=== PATIENT | male | born 1945 | race Caucasian/White ===

== ENCOUNTER 2022-10-31 19:52 | Emergency (ER) | payer MEDICARE, OTHER, SELFPAY ==
[2022-10-31] VITALS (13 sets, daily range): BP systolic 124–147; BP diastolic 62–94; PULSE 72–85; RESP 16; TEMP 36.6; O2SAT 91–96; BMI 35.4
--- NOTE | 2022-10-31 20:03 | CRLHL7_ITS ---
For Patients: As a result of the Century Cures Act, medical imaging exams and procedure reports are released immediately into your electronic medical record. You may view this report before your referring provider. If you have questions, please contact your health care provider. Indication: Fall with right ankle pain. Technique: Right ankle 2 views. Comparison: None. Findings/Impression: Bones: Partial subluxation of the ankle joint consistent with ligamentous injury. Minimally displaced oblique fracture in the distal right fibula. Joint spaces: No degenerative changes. Soft tissues: Unremarkable. Dictated by Manjit Gerber MD @ 10/31/2022 8:52:01 PM (Electronically Signed)
--- NOTE | 2022-10-31 20:40 | ED.GENADULT ---
HPI - General Adult General Chief complaint: Extremity Pain/Injury, Lower Stated complaint: Foot injury, fall Time Seen by Provider: 10/31/22 20:32 History of Present Illness HPI narrative: 850ish - walking for mail, fell, passerby helped him get up and he rolled his R ankle, ems gave 50 fent IV. semi splinted ankle. no previous hx of R ankle injury. pt has abrasions to knees bilat, denies any complaints of pain in knees or hips. post fent pt got 2L NC per ems. 77-year-old man went out to get the mail. I believe he told me stepped on a tire and rolled his ankle. Spouse says there are no tires out there. Abrasions to both knees. Knees are sore but is able to bend them. Did not hit his head. No neck or back or shoulder or abdominal pain. No shortness of breath. No loss of consciousness. Pain in the right ankle. Did receive fentanyl via EMS. No shortness of breath. Related Data Home Medications Medication Instructions Recorded Confirmed amlodipine 10 mg tablet 10 mg PO DAILY 10/31/22 11/05/22 atorvastatin 40 mg tablet 40 mg PO DAILY 10/31/22 11/05/22 lisinopril 20 1 tab PO DAILY 10/31/22 11/05/22 mg-hydrochlorothiazide 25 mg tablet blood sugar diagnostic (Accu-Chek #10 ea 11/03/22 11/03/22 SmartView Test Strips) glipizide 10 mg tablet, extended 10 mg PO BID 11/03/22 11/05/22 release 24 hr insulin glargine 100 unit/mL (3 70 unit subcut QPM 11/03/22 11/05/22 mL) subcutaneous pen (Lantus Solostar U-100 Insulin) metformin 500 mg tablet,extended 1,000 mg PO QDAY 11/03/22 11/05/22 release 24 hr pen needle, diabetic 32 gauge x #1,200 ea 11/03/22 11/03/22 (BD Ida 2nd Gen Pen Needle) pioglitazone 30 mg tablet 30 mg PO DAILY 11/03/22 11/05/22 Previous Rx's Medication Instructions Recorded Adult Wheelchair #1 ea 11/03/22 acetaminophen 500 mg capsule 1,000 mg (2 x 500 mg) PO Q6H PRN 11/05/22 pain #60 caps aspirin 81 mg capsule 81 mg PO BID DVT prophylaxis #70 11/05/22 caps oxycodone 5 mg tablet 5 mg PO Q4H PRN pain #20 tabs 11/05/22 Allergies Allergy/AdvReac Type Severity Reaction Status Date / Time No Known Drug Allergies Allergy Verified 11/05/22 06:28 Review of Systems Status of ROS: Reports: 6 or more systems reviewed and unremarkable except as noted in History and below [facility] Medical History 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 Little sleepy presumably from fentanyl. Cranial nerves 2-12 are intact. GCS of 15. Breathing easily. Lungs appear to be clear. Heart in regular rate and rhythm abdomen is overweight soft nontender. General swelling and purpling of the right ankle. Inch diameter as if residual blister abrasion at the medial malleolus. Skin is tense. Sensation intact distally. Large abrasions on both knees with a little bit of grit in them but he is able to flex and extend the knees without significant pain. Small abrasion at the right dorsal wrist. With small amount of swelling. Has no pain to movement/manipulation of the wrist here. Head is atraumatic. Neck is supple. Back nontender. Const: Vital Signs, click to edit/add: Vital Signs - 24 hr 10/31/22 19:58 10/31/22 20:02 10/31/22 20:17 Temperature 97.9 F Pulse Rate 82 82 Pulse Rate [Left P ulse Oximeter] 85 Respiratory Rate 16 Blood Pressure 138/72 145/84 H Blood Pressure [Ri ght Upper Arm] 138/69 Pulse Oximetry 93 91 94 Oxygen Delivery Me thod Nasal Cannula Oxygen Flow Rate 2 10/31/22 20:32 10/31/22 20:48 10/31/22 21:02 Temperature Pulse Rate 80 82 79 Pulse Rate [Left P ulse Oximeter] Respiratory Rate Blood Pressure 147/82 H 126/94 H 146/63 H Blood Pressure [Ri ght Upper Arm] Pulse Oximetry 93 96 95 Oxygen Delivery Me thod Oxygen Flow Rate Documenting provider has reviewed patient's vital signs: yes Course Vital Signs Vital signs: Initial Vital Signs Temperature 97.9 F 10/31/22 19:58 Temperature Source Temporal Artery Scan 10/31/22 19:58 Pulse Rate 85 10/31/22 19:58 Respiratory Rate 16 10/31/22 19:58 Blood Pressure 138/69 10/31/22 19:58 Blood Pressure Mean 92 10/31/22 19:58 Blood Pressure Position Supine 10/31/22 19:58 Pulse Oximetry 93 10/31/22 19:58 Oxygen Delivery Method Nasal Cannula 10/31/22 19:58 Oxygen Flow Rate 2 10/31/22 19:58 Vital Signs Temperature 97.9 F 10/31/22 19:58 Pulse Rate 85 10/31/22 19:58 Respiratory Rate 16 10/31/22 19:58 Blood Pressure 138/69 10/31/22 19:58 Pulse Oximetry 93 10/31/22 19:58 Oxygen Delivery Method Nasal Cannula 10/31/22 19:58 Oxygen Flow Rate 2 10/31/22 19:58 Temperature 97.9 F 10/31/22 19:58 Pulse Rate 72 10/31/22 21:47 Respiratory Rate 16 10/31/22 21:47 Blood Pressure 124/71 10/31/22 21:47 Pulse Oximetry 94 10/31/22 21:47 Oxygen Delivery Method Room Air 10/31/22 21:47 Oxygen Flow Rate 1 10/31/22 21:33 Medical Decision Making MDM Narrative Medical decision making narrative: X-ray of reviewed by me before I enter the room. Looks like oblique fibular fracture with mortise widening to 1/2 inch. Joint subluxation. I do not see a fracture at the medial malleolus at this time. Probably will need reduction to help with his discomfort. Did discuss with Orthopedics in agreement. Attempt opiate pain medication 1st but will likely need deeper procedural sedation. Given Dilaudid. He did fall asleep with this periodically. Right ankle 2 views. Comparison: None. Findings/Impression: Bones: Partial subluxation of the ankle joint consistent with ligamentous injury. Minimally displaced oblique fracture in the distal right fibula. Joint spaces: No degenerative changes. Soft tissues: Unremarkable. See procedural notes Post reduction images two view ankle by my read look to show a fracture fragment in the medial joint space. Improved location of joint Discharge Plan Discharge Clinical Impression: Fracture subluxation of right ankle joint, Abrasion, Closed fibular fracture, Fall Patient Disposition: Home w/ Parent or Adult Condition: Improved Additional Instructions: Anticipate a call on Thursday from Orthopedics phone #[phone] to schedule follow-up with you. They will likely be recommending surgery. Elevate for comfort. Do not walk on it; use your crutches. Return/be re-evaluated for uncontrolled pain, new loss of sensation. [place] from [facility]. This can be combined with ibuprofen Prescriptions: No Action (DME) pen needle, diabetic [BD Ida 2nd Gen Pen Needle] 32 gauge x 5/32 needle See Rx Instructions .ROUTE .MEDSUPPLY Qty: 1200 Patient Comments: [NO ORIGINAL SIG] Rx Instructions: As directed insulin glargine [Lantus Solostar U-100 Insulin] 100 unit/mL (3 mL) insulin pen 70 unit subcut QPM pioglitazone 30 mg tablet 30 mg PO DAILY glipizide 10 mg tablet extended release 24hr 10 mg PO BID (DME) Accu-Chek SmartView Test Strip Strip See Rx Instructions .ROUTE BID Qty: 10 Rx Instructions: As directed (DME) Adult Wheelchair Misc See Rx Instructions .Route Qty: 1 0RF Rx Instructions: As directed atorvastatin 40 mg tablet 40 mg PO DAILY amlodipine 10 mg tablet 10 mg PO DAILY lisinopril-hydrochlorothiazide 20-25 mg tablet 1 tab PO DAILY metformin 500 mg tablet extended release 24 hr 1,000 mg PO QDAY oxycodone 5 mg tablet 5 mg PO Q4H PRN (Reason: pain) Qty: 20 0RF acetaminophen 500 mg capsule 1,000 mg PO Q6H PRN (Reason: pain) Qty: 60 0RF aspirin 81 mg capsule 81 mg PO BID Qty: 70 0RF Follow Up/Referrals: Tavo Nix MD [Primary Care Provider] - Stand Alone Forms: [facility] Info Instructions Procedures Orthopedic Fracture Reduction Fracture #1: Written consent by: patient (Verbal consent) Time Out Performed: No Side: right Fracture location: ankle (Fibular fracture with subluxation of the ankle) Analgesia: other (EMS fentanyl in addition to 1 mg of Dilaudid) Technique: traction/counter-traction Post Reduction X-rays Demonstrate: acceptable reduction Post-reduction neuro exam: intact and no change Post-reduction vascular exam: intact Splint Applied: Yes Patient Tolerated Procedure: well Orthopedic Splinting/Casting Injury #1: Side: right Lower Extremity Injury Location: ankle Lower extremity immobilizer: stirrup splint Applied by clinician: / Other Orthopedic Equipment: crutches Conclusion: patient tolerated procedure
[2022-10-31] MEDS: HYDROmorphone 0.5 mg/0.5 ml inj 1 MG IVP (20:58)
--- NOTE | 2022-10-31 21:41 | CRLHL7_ITS ---
For Patients: As a result of the Century Cures Act, medical imaging exams and procedure reports are released immediately into your electronic medical record. You may view this report before your referring provider. If you have questions, please contact your health care provider. Indication: Right ankle post reduction Technique: Two views of the right ankle, nonweightbearing Comparison: Same day ankle radiograph Findings: Lateral subluxation of the talus with respect to the tibia has mildly decreased. Medial clear space remains widened.Ossific avulsion fragment in the medial clear space of unknown parent site. Oblique fracture of the distal fibular diaphysis appears half shaft width posterior displacement of the distal fracture fragment with slight apex anterior angulation, mildly increased compared to prior. Similar appearance of mildly displaced vertically oriented fracture of the posterior malleolus. Overlying splint. Small Achilles calcaneal enthesophyte. Moderate soft tissue swelling about the ankle. Impression: 1. Lateral subluxation of the talus with respect to the tibia has mildly decreased. Medial clear space remains widened.Ossific avulsion fragment in the medial clear space of unknown parent site. 2. Oblique fracture of the distal fibular demonstrates slightly increased diastasis compared to prior. This may be partly due to differences in obliquity. 3. Similar appearance of posterior malleolus fracture. Dictated by Marsha Kraft MD @ 10/31/2022 10:10:38 PM (Electronically Signed)
--- NOTE | 2022-10-31 21:49 | ED.NURSE ---
wound care to knee abrasions, bacitracin applied
--- NOTE | 2022-10-31 22:42 | ED.NURSE ---
education on crutches, pt states he doesnt feel safe with them, walker education, pt unable to use effectively. pt SO and family asked about admittance, Rashida in to talk with pt. in room to talk about options with family. RX written for knee scooter. Son at bedside, pt pivot to wheel chair well, pivot wheelchair to car well. wheelchair sent home with pt to use to get inside tonight, verbal understanding from all family and pt that they will return wheel chair tomorrow.
--- NOTE | 2022-11-01 01:11 | ED.NURSE ---
prior to dc. pt able to maintain room air 93%, alert and oriented.
== END 2022-10-31 22:47 | disposition home or self-care (01) ==
PROVIDERS: Emergency Provider Family Medicine; PCP Family Medicine
DX: S82.431A Displaced oblique fracture of shaft of right fibula, initial encounter for closed fracture (principal); S93.01XA Subluxation of right ankle joint, initial encounter; W18.30XA Fall on same level, unspecified, initial encounter; Y93.01 Activity, walking, marching and hiking
CPT/HCPCS: 27788; 73600; 96374; 99284; J1170

== ENCOUNTER 2022-11-03 16:15 | Outpatient (CLI) | payer MEDICARE, OTHER, SELFPAY | END 2022-11-03 16:16 | disposition home or self-care (01) | LOC: NFLDREF 11-05 15:51 | PROVIDERS: PCP Family Medicine; Referring Provider Family Medicine; Visit Provider Family Medicine | DX: Z01.810 Encounter for preprocedural cardiovascular examination (principal); Z01.818 Encounter for other preprocedural examination; E11.9 Type 2 diabetes mellitus without complications; E11.59 Type 2 diabetes mellitus with other circulatory complications; I15.2 Hypertension secondary to endocrine disorders | CPT/HCPCS: 80053 ==

== ENCOUNTER 2022-11-05 06:09 | Day surgery (SDC) | payer MEDICARE, OTHER, SELFPAY ==
[2022-11-05] VITALS (15 sets, daily range): BP systolic 107–156; BP diastolic 64–113; PULSE 66–77; RESP 16; TEMP 36.2–36.7; O2SAT 93–97; BMI 36.3
[2022-11-05] MEDS: LACTATED RINGERS 1000 ML 1,000 ML 100 ML IV (06:20)
[2022-11-05] MEDS: SODIUM CHLORIDE 0.9 % (FLUSH) 10 ML SYRINGE IVF (07:00)
--- NOTE | 2022-11-05 07:12 | SUR.PREOP ---
TIME?OUT:?0723 PT/RN/MDA?VERIFICATION?OF?SURGICAL?SITE Right Ankle,?PROCEDURE Pop Block,?AND?CONSENT OBTAINED?PRIOR?TO?INVASIVE?PROCEDURE.
[2022-11-05] MEDS: fentaNYL 100 MCG/2 ML inj IVP (07:30)
[2022-11-05] MEDS: MIDAZOLAM HCL 1 MG/ML inj IVP (07:30)
--- NOTE | 2022-11-05 07:30 | CRLHL7_ITS ---
For Patients: As a result of the Century Cures Act, medical imaging exams and procedure reports are released immediately into your electronic medical record. You may view this report before your referring provider. If you have questions, please contact your health care provider. INDICATION: Open reduction and internal fixation of the right ankle. TECHNIQUE: Fluoroscopically guided open reduction internal fixation of the right ankle. Six spot images were obtained of the right ankle intraoperatively. FINDINGS: 29.3 seconds fluoroscopy time utilized. Postsurgical change of the distal fibula with a plate and screw fixation device. Postsurgical change along the medial malleolus. Posterior malleolar fracture. IMPRESSION: Postsurgical change from open reduction internal fixation of the right ankle. 29.3 seconds fluoroscopy time utilized. Dictated by Mesfin Shen MD @ 11/05/2022 11:08:48 AM (Electronically Signed)
--- NOTE | 2022-11-05 07:41 | W.PM.H&PU ---
History & Physical Update History & Physical Update H&P Reviewed and patient assessed: No changes noted
--- NOTE | 2022-11-05 07:54 | W.PM.NB ---
Nerve Block Nerve Block Time Seen by Provider: 07:30 Date Seen: 11/05/22 Type of block requested by surgeon for post-operative analgesia: popliteal Side: right Time out performed: Yes Verification of patient name: Yes Verification of date of : Yes Site marking: site marked Name of person performing procedure: Sujit Continuous monitoring Was continuous monitoring of O2 sat, B/P, wood planer, recorded every 15 minutes?: Yes Procedure Checklist: sterile prep, needles and gloves Ultrasound guided. Images saved: Yes Medications given in 5ml increments after negative aspiration: Ropivicaine %: 0.5 mL: 20 Needle gauge: 22 Patient tolerated procedure well: Yes Additional comments: Needle noted adjacent to nerve Block Charges Block Charge (with Pro Fee): Sciatic Nerve Use of Ultrasound Machine for Block: Yes- US Guidance/pain block
--- NOTE | 2022-11-05 07:54 | W.PM.NB ---
Nerve Block Nerve Block Time Seen by Provider: 07:30 Date Seen: 11/05/22 Type of block requested by surgeon for post-operative analgesia: adductor canal Side: right Time out performed: Yes Verification of patient name: Yes Verification of date of : Yes Site marking: site marked Name of person performing procedure: Sujit Continuous monitoring Was continuous monitoring of O2 sat, B/P, cardiac monitor technician, recorded every 15 minutes?: Yes Procedure Checklist: sterile prep, needles and gloves Ultrasound guided. Images saved: Yes Medications given in 5ml increments after negative aspiration: Ropivicaine %: 0.5 mL: 20 Needle gauge: 20 Patient tolerated procedure well: Yes Additional comments: Needle noted adjacent to nerve Block Charges Block Charge (with Pro Fee): Femoral Nerve Use of Ultrasound Machine for Block: Yes- US Guidance/pain block
--- NOTE | 2022-11-05 07:54 | W.ANESCHARGE ---
Anesthesia Charges Start Date/Time Anesthesia Start Date: 11/05/22 Anesthesia Start Time: 09:02 Stop Date/Time Anesthesia Stop Date: 11/05/22 Anesthesia Stop Time: 11:45 Summary Extremes of Age - Over 70 or under 1: MDA
--- NOTE | 2022-11-05 08:11 | PM.ORPRC ---
Procedure Note Date of procedure: 11/05/22 Procedure: PREOPERATIVE DIAGNOSIS: 1. Right ankle fracture 2. Right ankle syndesmosis disruption POSTOPERATIVE DIAGNOSIS: 1. Right ankle fracture 2. Right ankle syndesmosis disruption PROCEDURE: 1. Right ankle open reduction internal fixation 2. Right ankle syndesmosis fixation SURGEON: Brooks Peoples MD. TANNER [employer] DRUM CONTINUOUS PROCESS: Brianda Peoples P.A.-C. An multimedia production assistant was critical for this case to aid in patient positioning, tissue retraction, limb manipulation/positioning, and closure. ANESTHESIA: Spinal anesthetic with popliteal and adductor canal blocks IMPLANTS: Arthrex 10 hole distal fibular locking plate and syndesmosis tightrope TOURNIQUET: 72 minutes at 250 mmHg ESTIMATED BLOOD LOSS: 10 mL COMPLICATIONS: none evident INDICATIONS: The patient is a pleasant 77-year-old male who Sustained a Fish C distal fibula fracture, small posterior malleolus fracture, and syndesmosis disruption following a ground level fall 5 days prior to surgery. Recommendation was subsequent made for surgical intervention consisting of right ankle open reduction internal fixation and syndesmosis repair. Prior to surgery risks and benefits were discussed with patient all questions were answered and informed consent was obtained. FINDINGS: Displaced, comminuted, Fish C distal fibula fracture; small, displaced posterior malleolus fracture; syndesmosis disruption. DESCRIPTION OF PROCEDURE: Following a thorough discussion of risks, benefits, and alternatives consent was obtained and the operative site was marked. The patient was brought to the operating room and placed supine on the operating table. Induction of anesthesia was undertaken. 2 g IV Ancef was administered within 1 hr of incision preoperatively. A tourniquet was placed on the patient's right thigh and patient was positioned in the supine position on the OR table. All bony prominences were well padded.The operative extremity was prepped and draped in the appropriate sterile fashion. A surgical time-out was performed confirming patient identity surgical site, surgical procedure. The right lower extremity was elevated and exsanguinated with Esmarch, and tourniquet was inflated to 250 mmHg. A longitudinal incision was made along the posterior border of the fibula centered over the fracture site. Incision was carried through subcutaneous tissues. Blunt dissection was used to dissect through deep subcutaneous tissues. Electrocautery was used to cauterize some small traversing vessels. Deep fascia was split in line with the incision with care taken to avoid the superficial peroneal nerve. Fracture site was identified, cleared of fracture hematoma and interposed soft tissue, and irrigated with normal saline. There was noted be a large butterfly fragment posteriorly this fragment was reduced to the proximal fragment and held in place with a pointed reduction clamp. Proximal and distal fragments were then reduced and held in place with another pointed reduction clamp. Fluoroscopic images were obtained which confirmed anatomic reduction. The butterfly fragment was then fixed to the proximal fragment with two 2.7 mm lag screws , which were placed anterior to posterior direction perpendicular to the fracture site. A 10 hole distal fibula locking plate was selected and contoured to fit on the lateral aspect of the distal fibula. It was held provisionally with 2 bb tacks. It was then fixed proximally with 3.5 mm cortical nonlocking screws and distally with locking screws. Fluoroscopic imaging was used to confirm that distal screws were not placed into the joint. After plate was secured to the fibula reduction clamps removed. An external rotation stress test was then performed, which confirmed persistent disruption of the syndesmosis with widening of the medial clear space. The syndesmosis was then reduced, and the ankle was held in neutral alignment. The guidewire for the syndesmosis tight rope was then drilled through one of the unused holes in the plate in a posterior lateral to anterior medial direction across the fibula and tibia approximately 1-2 cm above the tibial plafond. This was then overdrilled with the drill for the syndesmosis tight rope. Syndesmosis tight rope was then placed through the fibula in button was flipped on the medial cortex of the distal tibia. tight rope was then tensioned. An external rotation stress was again applied which confirmed reduction of the syndesmosis and no widening of the medial clear space. Final fluoroscopic images revealed anatomic alignment of the fibula fracture with minimal displacement of the small posterior malleolus fracture. Hardware is in Goodposition with no evidence of any complications. Tourniquet was released. Total tourniquet time was 72 minutes. Surgical incision was irrigated with normal saline. Deep fascia was closed over the plate using combination of [id number] interrupted and running 2-0 Vicryl sutures. Skin was closed with 3-0 Vicryl root interrupted subcutaneous stitches followed by running 3-0 nylon stitch. Sterile dressings were applied followed by a bulky [place] short leg posterior splint. The patient was awoken from anesthesia and transferred the PACU in stable condition. PLAN: 1. Nonweightbearing right lower extremity. May weightbear as tolerated to the knee. 2. Tylenol and oxycodone as needed for pain control. 3. Aspirin 81 mg b.i.d. for 35 days for DVT prophylaxis. 4. Ice and elevation to control pain and swelling. 5. Discharge to home on day of surgery. 6. Follow-up in 10-14 days for wound check and suture removal.
[2022-11-05] MEDS: CEFAZOLIN 1 GM inj IVP (09:18)
--- NOTE | 2022-11-05 11:49 | P.ANES_ITS ---
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
--- NOTE | 2022-11-05 13:23 | SUR.PHASEII ---
pt voided by bedside before discharge.
--- NOTE | 2022-11-05 13:24 | SUR.PHASEII ---
Pt's daughter noted he had a scabbed wound on left knee from his fall. Minimal pink color around area. Daughter was concerned about the look of it. Market Research Lead circled around the pink color. . Piter GUILLERMO looked at it. Instructed them to keep an eye on it and call if it gets worse.
== END 2022-11-05 13:23 | disposition home or self-care (01) ==
PROVIDERS: PCP Family Medicine; Visit Provider Orthopaedic Surgery
PROC: (CPT 27814; principal; 2022-11-05 07:30)
DX: S82.841A Displaced bimalleolar fracture of right lower leg, initial encounter for closed fracture (principal); S93.431A Sprain of tibiofibular ligament of right ankle, initial encounter; G89.18 Other acute postprocedural pain
CPT/HCPCS: 27814; 27829; 1480; 64445; 64447; 73610; 76000; 76942; 82962; 99100; A4580; C1713; J0690; J2250; J2371; J2704; J2795; J3010; J7120

== ENCOUNTER 2022-12-26 14:13 | Inpatient (IN) | payer MEDICARE, OTHER, SELFPAY ==
[2022-12-26] VITALS (16 sets, daily range): BP systolic 123–149; BP diastolic 61–85; PULSE 69–90; RESP 16–24; TEMP 35.9–36.9; O2SAT 92–96; BMI 35.4
[2022-12-26] MEDS: LACTATED RINGERS 1000 ML 1,000 ML 100 ML IV (10:05)
[2022-12-26] MEDS: SODIUM CHLORIDE 0.9 % (FLUSH) 10 ML SYRINGE IVF (10:26)
--- NOTE | 2022-12-26 11:50 | W.ANESCHARGE ---
Anesthesia Charges Start Date/Time Anesthesia Start Date: 12/26/22 Anesthesia Start Time: 11:55 Stop Date/Time Anesthesia Stop Date: 12/26/22 Anesthesia Stop Time: 12:56 Summary Extremes of Age - Over 70 or under 1: MDA
--- NOTE | 2022-12-26 11:54 | W.PM.H&PU ---
History & Physical Update History & Physical Update H&P Reviewed and patient assessed: No changes noted
--- NOTE | 2022-12-26 12:08 | W.ANESCHARGE ---
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
[2022-12-26] MEDS: CEFAZOLIN 2 GM INJ IVP (12:21)
--- NOTE | 2022-12-26 12:50 | PM.ORPRC ---
Procedure Note Date of procedure: 12/26/22 Procedure: PREOPERATIVE DIAGNOSIS: 1. Right lower leg surgical site infection POSTOPERATIVE DIAGNOSIS: 1. Right lower leg surgical site infection PROCEDURE: 1. Right leg wound irrigation and debridement 2. Right leg wound VAC application SURGEON: Brooks Peoples MD. OUTDOOR POWER EQUIPMENT MECHANIC: CECILE Sun - An emergency veterinary assistant was critical for this case to aid in patient positioning, tissue retraction, limb manipulation/positioning, and closure. ANESTHESIA: General anesthetic IMPLANTS: None TOURNIQUET: Not applicable ESTIMATED BLOOD LOSS: 2 mL COMPLICATIONS: None evident SPECIMENS: Subcutaneous wound swab and deep subcutaneous soft tissue x2 sent for Gram stain, anaerobic and aerobic cultures. INDICATIONS: The patient is a pleasant 69-year-old male who underwent right ankle open reduction internal fixation and syndesmosis fixation on 11/05/2022. Approximately 6 weeks postoperatively he developed some erythema and small amount of drainage from the lateral surgical incision. He was started on oral Keflex and initially saw improvement. However, he developed recurrent drainage yesterday. Recommendation was subsequently made for surgical intervention consisting of right leg wound irrigation, debridement, and wound VAC application. Prior to surgery risks and benefits were discussed with patient all questions were answered informed consent was obtained. FINDINGS: Area of necrotic tissue with surrounding erythema over the central aspect of his lateral skin incision. There was no deep fluid collection. After debridement of necrotic and devitalized tissue, the wound measured 3 cm in length, 1 cm in width, 1 cm deep. The plate was visible in the base of the wound. There was no tracking deep to the subcutaneous tissues or along the plate. DESCRIPTION OF PROCEDURE: Patient was seen preoperatively and operative site was marked. He was then brought to the operating room placed in supine position on the or table. General anesthesia was obtained. The right lower extremity some prepped and draped in usual sterile fashion. A surgical time-out was performed confirming patient identity surgical site surgical procedure. Eschar was sharply excised from the wound. After removal of the overlying eschar, swabs of the soft tissue deep to the eschar were obtained and sent for Gram stain, anaerobic/aerobic cultures. Two sets of soft tissue samples were also obtained from the deep subcutaneous tissues and were sent for Gram stain, anaerobic/aerobic cultures. Devitalized tissue was then sharply excised. Skin edges were sharply excised and good bleeding tissue was noted. After removal of all necrotic and devitalized tissue, the wound measured 3 cm x 1 cm x 1 cm. The plate was visible in the base of the wound. There was no deep fluid collections and no tracking deep to the subcutaneous tissues or along the plate. Wound was then irrigated with copious amounts of normal saline using a bulb syringe. A wound VAC was then applied and set to 125 mmHg of continuous suction. Good seal of the wound VAC VAC was confirmed after initiation of continuous suction. Patient was then awoken from anesthesia and transferred the PACU in stable condition. PLAN: 1. Will be admitted to inpatient hospitalist service for initiation of IV antibiotics. 2. Wound VAC to 125 mmHg continuous suction. Will need to be changed twice weekly 3. Broad-spectrum IV antibiotics until wound cultures are final 4. Oral pain medications as needed. 5. Ice and elevation for pain and swelling. 6. Weight bear as tolerated with Cam boot. 7. DVT prophylaxis with at [facility].
--- NOTE | 2022-12-26 14:39 | SUR.PHASEII ---
RN report given to healthcare or medical at 2:20pm
--- NOTE | 2022-12-26 16:11 | P.IMCN_ITS ---
Date of Consult Patient: Phoebe Patient Consult date: 12/26/22 Requesting Physician: Orthopedics Primary Care Provider: Tavo Nix MD Consult Narrative Reason for consult: Management of wound infection and other medical problems Narrative: Alberto Rosenthal is a 77 year old male with hypertension and diabetes presents with an infected wound over his right ankle. On October 31 he fell and had an inversion injury to his right ankle. He was found to have a distal fibular fracture with and widen ankle mortise. November 05 he was taken to the OR by Dr. Peoples for ORIF. He has had an uncomplicated recovery from that until about 1 week ago when he started having erythema over the area of the surgical incision on his ankle. This was treated with Keflex but over the subsequent week was not getting any better. He is taken to the OR by Dr. Peoples today for I and D of the wound infection. It appears that there was no deep infection into the ankle. Hardware was left in place. He reports he has not been feeling ill with fevers or chills. He is not having significant ankle pain. Initially with his injury he was using a kneeling walker but now is weight- bearing with a cam walker boot. He reports he is managing this fairly well. Review of Systems Narrative: He reports no recent illness and no other injury. Specifically denies cold, cough, fever, shortness of breath, chest pain, abdominal pain, nausea, vomiting, diarrhea, constipation. He gets up 2-3 times at night to void. His significant other notes that he does have prominent snoring and daytime sleepiness for which he takes naps. [facility] Medical History (Updated 12/26/22 @ 16:21 by Gregorio Ordoñez MD) Sleep apnea ?G47.30 - Sleep apnea, unspecified (ICD-10) Mixed hyperlipidemia ?E78.2 - Mixed hyperlipidemia (ICD-10) Hypertension associated with diabetes ?E11.59 - Type 2 diabetes mellitus with other circulatory complications (ICD- 10) ?I15.2 - Hypertension secondary to endocrine disorders (ICD-10) Diabetes ?E11.9 - Type 2 diabetes mellitus without complications (ICD-10) Surgical History Status post ORIF of fracture of ankle (11/05/22) ?Z98.890 - Other specified postprocedural states (ICD-10) ?Z87.81 - Personal history of (healed) traumatic fracture (ICD-10) Family History Father Lung cancer Mother Diabetes Brother Diabetes Sister Diabetes Social History (Updated 12/26/22 @ 16:18 by Gregorio Ordoñez MD) Narrative: He lives with Bernarda-Life partner near [employer]. He reports this is going well for him. He does not smoke. He drinks occasionally, not every week. Code status is full. Healthcare power of energy attorney is his daughter, Radha Leon, lives next door to him. What is your current living situation?: I presently have a place to live Problems where you live: no known problems Problems where you live details: none to report In the past 12 months, utilities in danger of being shut off: no In past 12 months, lack of transportation kept you from medical appts, meetings, work, or getting things needed for daily living: no In the past 12 mos, have been you worried that your food would run out before you had money to buy more?: never true In the past 12 mos, the food you bought just didn't last and you didn't have money to buy more?: never true Highest level of school completed/degree received: high school graduate Smoking Status: Never smoker Do you use any of these nicotine containing products: None Second hand tobacco smoke exposure: No How often do you have a drink containing alcohol: monthly or less Alcohol type: beer How many standard drinks containing alcohol do you have on a typical day: 1 or 2 How often do you have six or more drinks on one occasion: Never AUDIT-C Alcohol total score: 1 Non-prescribed substance use: denies use Caffeine: Yes How often does anyone, including family, friends and others, physically hurt you : never How often does anyone, including family, friends and others, insult or talk down to you: never How often does anyone, including family, friends and others, threaten you with harm: never How often does anyone, including family, friends and others, scream or curse at you: never service: Yes Meds Home Medications and Allergies Home Medications Medication Instructions Recorded Confirmed Type amlodipine 10 mg tablet 10 mg PO DAILY 10/31/22 12/26/22 History atorvastatin 40 mg tablet 40 mg PO DAILY 10/31/22 12/26/22 History lisinopril 20 1 tab PO DAILY 10/31/22 12/26/22 History mg-hydrochlorothiazide 25 mg tablet blood sugar diagnostic (Accu-Chek #10 ea 11/03/22 12/25/22 History SmartView Test Strips) glipizide 10 mg tablet, extended 10 mg PO DAILY 11/03/22 12/26/22 History release 24 hr insulin glargine 100 unit/mL (3 70 unit subcut HS 11/03/22 12/26/22 History mL) subcutaneous pen (Lantus Solostar U-100 Insulin) metformin 500 mg tablet,extended 2,000 mg PO QPM 11/03/22 12/26/22 History release 24 hr pen needle, diabetic 32 gauge x #1,200 ea 11/03/22 12/25/22 History 5/32 (BD Ida 2nd Gen Pen Needle) pioglitazone 30 mg tablet 30 mg PO DAILY 11/03/22 12/26/22 History cholecalciferol (vitamin D3) 25 25 mcg PO DAILY 12/26/22 12/26/22 History mcg (1,000 unit) tablet Allergies Allergy/AdvReac Type Severity Reaction Status Date / Time No Known Drug Allergies Allergy Verified 12/26/22 10:15 Exam Narrative: Exam Narrative: He is alert and appears in no distress. He gives his own history. Oropharynx, edentulous with very small airway. Neck is supple without mass or adenopathy. Respirations are clear to auscultation. Breathing is unlabored. Cardiovascular: S1, S2, regular rate and rhythm. No murmur gallop or rub. Abdomen: Bowel sounds active. Abdomen is soft without tenderness or mass. Extremities with intact pulses and sensation. He moves all 4 extremities well. Right leg is in a cam walker boot. Const: Vital Signs, click to edit/add: Vital Signs - 24 hr 12/26/22 10:27 12/26/22 12:54 12/26/22 13:00 Temperature 97.9 F 97.6 F Pulse Rate 90 77 74 Pulse Rate [Pulse Oximeter] Respiratory Rate 16 20 20 Blood Pressure 136/84 143/85 H 147/83 H Blood Pressure [Le ft Arm] Pulse Oximetry 96 92 93 Oxygen Delivery Me thod Room Air Room Air Room Air 12/26/22 13:05 12/26/22 13:10 12/26/22 13:14 Temperature 97.6 F Pulse Rate 73 72 69 Pulse Rate [Pulse Oximeter] Respiratory Rate 24 24 24 Blood Pressure 136/75 134/77 132/71 Blood Pressure [Le ft Arm] Pulse Oximetry 93 94 93 Oxygen Delivery Me thod Room Air Room Air Room Air 12/26/22 13:20 12/26/22 13:23 12/26/22 13:33 Temperature 97.9 F 98.5 F Pulse Rate 71 70 72 Pulse Rate [Pulse Oximeter] Respiratory Rate 24 24 20 Blood Pressure 130/70 135/73 139/77 Blood Pressure [Le ft Arm] Pulse Oximetry 94 95 93 Oxygen Delivery Me thod Room Air Room Air Room Air 12/26/22 13:46 12/26/22 14:04 12/26/22 14:23 Temperature 98.5 F Pulse Rate 75 73 80 Pulse Rate [Pulse Oximeter] Respiratory Rate 20 20 22 Blood Pressure 149/74 H 147/78 H 140/66 H Blood Pressure [Le ft Arm] Pulse Oximetry 96 94 96 Oxygen Delivery Me thod Room Air Room Air Room Air 12/26/22 14:40 12/26/22 15:10 Temperature 96.7 F L 96.7 F L Pulse Rate Pulse Rate [Pulse Oximeter] 81 81 Respiratory Rate 18 18 Blood Pressure Blood Pressure [Le ft Arm] 146/76 H 146/76 H Pulse Oximetry 96 96 Oxygen Delivery Me thod Room Air Room Air Assessment and Plan Assessment and plan (1) Status post ORIF of fracture of ankle: Problem comment: Right ankle open reduction internal fixation (Dr. Peoples, 11/05/2022) Status: Acute (2) Postoperative infection: Status: Acute (3) Diabetes: Status: Acute (4) Sleep apnea: Problem comment: Clinically suspected. Recommend outpatient sleep study Status: Suspected Plan Patient be admitted to the hospital for IV antibiotics, vancomycin and cefepime, pending culture results. Ideally then will have appropriate antibiotic for cultured bacteria done as an outpatient. Will place a PICC line this weekend for that indication. Will monitor and manage diabetes. I notice hemoglobin A1c was last 5.9. This is probably a little too low and patient and his partner both note he has had low blood sugars recently, as low as 50. I am going to stop his glipizide and while hospitalized will have him on Levemir 35 units twice daily instead of Lantus 70 units at bedtime. Weight-bearing with cam walker boot. Wound VAC. Total time spent today is 60 minutes, 40 minutes in coordination of care discussing with patient, partner, surgeon and nursing staff ongoing evaluation management of wound infection.
[2022-12-26] MEDS: 0.9 % SODIUM CHLORIDE 250 ml IV (16:20)
[2022-12-26] MEDS: CEFEPIME HCL 2 GM in 0.9 % SODIUM CHLORIDE Mini-bag 100 ML IVPB (16:20)
[2022-12-26] MEDS: METFORMIN ER 500 MG 2000 MG PO (17:55)
--- NOTE | 2022-12-26 18:38 | PC.NURSE ---
Pt arrived to floor from PACU approximately 14:38. Patient alert and oriented, VSS, afebrile. R foot in walking boot with portable wound vac in place upon arrival. Patient tolerating regular diet, continent of bowel and bladder, up in room with standby assist. Significant other at bedside. Patient resting comfortably at end of shift.
[2022-12-26] MEDS: ATORVASTATIN CALCIUM 40 MG TABLET PO (20:51)
[2022-12-27 03:00] VITALS: BP 121/69; PULSE 76; RESP 18; TEMP 36.5; O2SAT 95
[2022-12-27] MEDS: CEFEPIME HCL 2 GM in 0.9 % SODIUM CHLORIDE Mini-bag 100 ML IVPB ×2 (03:24→15:55)
--- NOTE | 2022-12-27 06:45 | PC.NURSE ---
Shift note: Pt is doing from the operation. No pain reported throughout the shift. A/o, uses call light well. Boot in place to the right leg. Wound has been at 125 with continuous suction. No drainage in Vac container. Ambulate with SBA. Pt had adequate sleep tonight. Vitally stable.
[2022-12-27 07:30] VITALS: BP 131/68; PULSE 73; RESP 18; TEMP 36.7; O2SAT 94
[2022-12-27 07:56] LABS: Basophils Absolute Auto 0.01 K/uL (0.00-0.30); Basophils Percent Auto 0.1 % (0.0-3.0); Eosinophils Absolute Auto 0.01 K/uL (0.00-0.50); Eosinophils Percent Auto 0.1 % (0.0-7.0); Hematocrit 37.9 % (37.0-53.0); Hemoglobin* 12.3 gm/dL (13.5-17.5); Immature Granulocytes Abs Auto 0.02 K/uL (0.00-0.30); Immature Granulocytes Pct Auto 0.3 %; Lymphocytes Percent Auto 19.9 % (20-44); Mean Corpuscular HGB Conc 33 gm/dL (32-36); Mean Corpuscular Hemoglobin 29 pg (26-34); Mean Corpuscular Volume 88 fL (80-100); Monocytes Percent Auto 7.1 % (0.0-11.0); Neutrophils Percent Auto 72.5 % (42.0-72.0); Platelet Count* 153 K/uL (140-440); Red Blood Count 4.29 m/uL (4.30-5.90)
[2022-12-27 07:58] LABS: Slide Review Reflex No
[2022-12-27 08:10] LABS: Chloride* 107 mmol/L (96-114)
[2022-12-27 08:11] LABS: Potassium* 4.3 mmol/L (3.6-5.1); Sodium* 141 mmol/L (135-149)
[2022-12-27 08:13] LABS: Creatinine* 0.8 mg/dL (0.5-1.5); Est. Creatinine Clearance* 60.88; Estimated Glomerular Filt Rate 91 ml/min
[2022-12-27 08:14] LABS: Anion Gap 11 mEq/L (7-15); Blood Urea Nitrogen* 30 mg/dL (7-30); Carbon Dioxide* 23 mmol/L (20-32); Glucose* 132 mg/dL (60-115)
[2022-12-27 08:17] LABS: C Reactive Protein* 0.5 mg/dL (0.5-1.0)
[2022-12-27] MEDS: AMLODIPINE 10 MG TABLET PO (08:23)
--- NOTE | 2022-12-27 08:23 | PM.IMPN1 ---
Progress Note: A&P Assessment and plan (1) Status post ORIF of fracture of ankle: Problem details: Right ankle open reduction internal fixation (Dr. Peoples, 11/05/2022) Status: Acute (2) Postoperative infection: Problem details: - Continue wound vac, cam boot walker, vancomycin and cefepime, pending culture results. Ideally then will have appropriate antibiotic for cultured bacteria done as an outpatient. Will be getting a PICC line this weekend for that indication. Status: Acute (3) Sleep apnea: Problem details: Clinically suspected. Recommend outpatient sleep study. Status: Suspected (4) Diabetes: Problem details: - last hemoglobin A1c was 5.9%. He has had low blood sugars as an outpatient, recently as low as 50. For that reason glipizide is on hold and he is on Levemir 35 units twice a day instead of Lantus 70 units nightly, which he takes at home. Also on ISS ACHS. - 12/27/22 BG [id number]. Will accept a higher inpatient goal for BG to avoid hypoglycemia. No change to current regimen. Status: Chronic (5) Hypertension associated with diabetes: Problem details: - fairly well controlled. Continue outpatient regimen. Status: Chronic (6) Mixed hyperlipidemia: Problem details: - Continue outpatient regimen. Status: Chronic Subjective Time Seen by Provider: 08:19 Date Seen: 12/27/22 Interval history: Alberto is feeling well this morning. He has been ambulating around the room and to the bathroom without difficulty. He has a wound VAC and boot on his right lower leg. He denies pain in that leg and says the IV in his left hand hurts worse than his ankle. He has not yet had a bowel movement today, but is usually pretty regular. He denies any chest pain or shortness of breath. Exam Narrative: Exam Narrative: General: No acute distress. Awake, alert, oriented x3. No pallor. No jaundice. Sitting up in the chair and eating breakfast. Affect: Bright. Oropharynx: Clear. Mucous membranes moist. Cardiovascular: Regular rate and rhythm. No murmurs, gallops, or rubs. Respiratory: Clear to auscultation bilaterally. No wheezes or crackles. Abdomen: Bowel sounds present. Extremities: No pedal edema on the left. Tall Cam boot walker on the right lower leg. Const: Vital Signs, click to edit/add: Vital Signs - 24 hr 12/26/22 10:27 12/26/22 12:54 12/26/22 13:00 Temperature 97.9 F 97.6 F Pulse Rate 90 77 74 Pulse Rate [Pulse Oximeter] Respiratory Rate 16 20 20 Blood Pressure 136/84 143/85 H 147/83 H Blood Pressure [Le ft Arm] Blood Pressure [Ri ght Arm] Pulse Oximetry 96 92 93 Oxygen Delivery Me thod Room Air Room Air Room Air 12/26/22 13:05 12/26/22 13:10 12/26/22 13:14 Temperature 97.6 F Pulse Rate 73 72 69 Pulse Rate [Pulse Oximeter] Respiratory Rate 24 24 24 Blood Pressure 136/75 134/77 132/71 Blood Pressure [Le ft Arm] Blood Pressure [Ri ght Arm] Pulse Oximetry 93 94 93 Oxygen Delivery Me thod Room Air Room Air Room Air 12/26/22 13:20 12/26/22 13:23 12/26/22 13:33 Temperature 97.9 F 98.5 F Pulse Rate 71 70 72 Pulse Rate [Pulse Oximeter] Respiratory Rate 24 24 20 Blood Pressure 130/70 135/73 139/77 Blood Pressure [Le ft Arm] Blood Pressure [Ri ght Arm] Pulse Oximetry 94 95 93 Oxygen Delivery Me thod Room Air Room Air Room Air 12/26/22 13:46 12/26/22 14:04 12/26/22 14:23 Temperature 98.5 F Pulse Rate 75 73 80 Pulse Rate [Pulse Oximeter] Respiratory Rate 20 20 22 Blood Pressure 149/74 H 147/78 H 140/66 H Blood Pressure [Le ft Arm] Blood Pressure [Ri ght Arm] Pulse Oximetry 96 94 96 Oxygen Delivery Me thod Room Air Room Air Room Air 12/26/22 14:40 12/26/22 15:10 12/26/22 15:10 Temperature 96.7 F L 96.7 F L Pulse Rate Pulse Rate [Pulse Oximeter] 81 81 Respiratory Rate 18 18 18 Blood Pressure Blood Pressure [Le ft Arm] 146/76 H 146/76 H Blood Pressure [Ri ght Arm] Pulse Oximetry 96 96 96 Oxygen Delivery Me thod Room Air Room Air Room Air 12/26/22 19:00 12/26/22 23:00 12/27/22 03:00 Temperature 96.8 F L 97.5 F L 97.7 F Pulse Rate Pulse Rate [Pulse Oximeter] 79 76 76 Respiratory Rate 18 18 18 Blood Pressure Blood Pressure [Le ft Arm] 129/73 123/61 121/69 Blood Pressure [Ri ght Arm] Pulse Oximetry 93 94 95 Oxygen Delivery Me thod Room Air Room Air Room Air 12/27/22 07:30 12/27/22 07:30 Temperature 98.1 F Pulse Rate Pulse Rate [Pulse Oximeter] 73 73 Respiratory Rate 18 18 Blood Pressure Blood Pressure [Le ft Arm] Blood Pressure [Ri ght Arm] 131/68 Pulse Oximetry 94 Oxygen Delivery Me thod Room Air Labs Labs: Laboratory Results - last 24 hr 12/27/22 07:40 WBC 7.00 RBC 4.29 L Hgb 12.3 L Hct 37.9 MCV 88 MCH 29 MCHC 33 RDW Coeff of Mahendra 14.0 Plt Count 153 Neut % (Auto) 72.5 H Lymph % (Auto) 19.9 L [place] % (Auto) 7.1 Eos % (Auto) 0.1 Baso % (Auto) 0.1 Neut # (Auto) 5.10 Lymph # (Auto) 1.40 [place] # (Auto) 0.50 Eos # (Auto) 0.01 Baso # (Auto) 0.01 Abs Immat Gran (auto) 0.02 Imm/Tot Granulo (auto) 0.3
[2022-12-27] MEDS: lisinopriL 20 MG TABLET PO (08:24)
[2022-12-27] MEDS: hydroCHLOROthiazide 25 MG TABLET PO (08:24)
[2022-12-27] MEDS: PIOGLITAZONE HCL 15 MG TABLET 30 MG PO (08:24)
[2022-12-27] MEDS: SODIUM CHLORIDE 0.9 % (FLUSH) 10 ML SYRINGE 5 ML IVF ×2 (08:24→20:27)
--- NOTE | 2022-12-27 09:11 | PM.ORPN ---
Subjective Subjective Time Seen by Provider: 09:00 Date Seen: 12/27/22 Principal diagnosis: Day 1 s/p right leg wound I&D and wound vac application (SCOTT, 12/26/22). Interval history: Alberto is doing well this morning and is resting comfortably in his recliner. Denies right lower extremity pain. Patient has been WBAT while wearing his CAM boot. Denies pain with ambulation and reports he feels steady with ambulation. Wound vac in place and well secured to his CAM boot. Denies: chest pain, SOB, fever, chills. Admits to intermittent tingling in his right great toe. Patient reports he has had a bowel movement this morning. No acute concerns. Ortho Exam Narrative Exam Narrative: Right lower extremity exam: Patient is alert and oriented x3. No acute distress and converses without labored breathing. Soft dressing ([place] wrap) and Wound Vac in place. Wound vac set at 125 mmHg continuous suction. Trace amount of blood-tinged drainage in canister. CMS intact distally with 2+ Dorsalis Pedis and Posterior Tibial pulses bilaterally, pink and warm digits. Confirmed sensation distally. Able to wiggle toes appropriately. Const Vital Signs, click to edit/add: Vital Signs - 24 hr 12/26/22 10:27 12/26/22 12:54 12/26/22 13:00 Temperature 97.9 F 97.6 F Pulse Rate 90 77 74 Pulse Rate [Pulse Oximeter] Respiratory Rate 16 20 20 Blood Pressure 136/84 143/85 H 147/83 H Blood Pressure [Left Arm] Blood Pressure [Right Arm] Pulse Oximetry 96 92 93 Oxygen Delivery Method Room Air Room Air Room Air 12/26/22 13:05 12/26/22 13:10 12/26/22 13:14 Temperature 97.6 F Pulse Rate 73 72 69 Pulse Rate [Pulse Oximeter] Respiratory Rate 24 24 24 Blood Pressure 136/75 134/77 132/71 Blood Pressure [Left Arm] Blood Pressure [Right Arm] Pulse Oximetry 93 94 93 Oxygen Delivery Method Room Air Room Air Room Air 12/26/22 13:20 12/26/22 13:23 12/26/22 13:33 Temperature 97.9 F 98.5 F Pulse Rate 71 70 72 Pulse Rate [Pulse Oximeter] Respiratory Rate 24 24 20 Blood Pressure 130/70 135/73 139/77 Blood Pressure [Left Arm] Blood Pressure [Right Arm] Pulse Oximetry 94 95 93 Oxygen Delivery Method Room Air Room Air Room Air 12/26/22 13:46 12/26/22 14:04 12/26/22 14:23 Temperature 98.5 F Pulse Rate 75 73 80 Pulse Rate [Pulse Oximeter] Respiratory Rate 20 20 22 Blood Pressure 149/74 H 147/78 H 140/66 H Blood Pressure [Left Arm] Blood Pressure [Right Arm] Pulse Oximetry 96 94 96 Oxygen Delivery Method Room Air Room Air Room Air 12/26/22 14:40 12/26/22 15:10 12/26/22 15:10 Temperature 96.7 F L 96.7 F L Pulse Rate Pulse Rate [Pulse Oximeter] 81 81 Respiratory Rate 18 18 18 Blood Pressure Blood Pressure [Left Arm] 146/76 H 146/76 H Blood Pressure [Right Arm] Pulse Oximetry 96 96 96 Oxygen Delivery Method Room Air Room Air Room Air 12/26/22 19:00 12/26/22 23:00 12/27/22 03:00 Temperature 96.8 F L 97.5 F L 97.7 F Pulse Rate Pulse Rate [Pulse Oximeter] 79 76 76 Respiratory Rate 18 18 18 Blood Pressure Blood Pressure [Left Arm] 129/73 123/61 121/69 Blood Pressure [Right Arm] Pulse Oximetry 93 94 95 Oxygen Delivery Method Room Air Room Air Room Air 12/27/22 07:30 12/27/22 07:30 Temperature 98.1 F Pulse Rate Pulse Rate [Pulse Oximeter] 73 73 Respiratory Rate 18 18 Blood Pressure Blood Pressure [Left Arm] Blood Pressure [Right Arm] 131/68 Pulse Oximetry 94 Oxygen Delivery Method Room Air Documenting provider has reviewed patient's vital signs: yes Assessment and Plan Assessment and plan (1) Status post ORIF of fracture of ankle: Problem details: Right ankle open reduction internal fixation (Dr. Peoples, 11/05/2022) Status: Acute (2) Postoperative infection: Problem details: Day 1 s/p right leg wound I&D and wound vac application (GAE, 12/26/22). Status: Acute Assessment and Plan: - Continue wound vac set to 125 mmHg continuous suction. This will be changed 2x/week at our Orthopedic clinic. - Wound culture results are pending. Continue vancomycin and cefepime, pending culture results. Patient will be receiving a PICC line later this weekend for outpatient antibiotics. - For pain management, recommend rest, ice, elevation, acetaminophen and oxycodone PRN. - May WBAT while wearing his CAM boot. May remove this boot when resting. - Follow-up appointment is scheduled with Dr. Peoples for 12/29 at our [facility]. Zackery has an appointment to begin Physical Therapy in [place] 12/30. These appointments may need to be rescheduled dependent upon Zackery's discharge date. - Notify our Orthopedic clinic with any questions or concerns [phone].
--- NOTE | 2022-12-27 11:11 | CRLHL7_ITS ---
For Patients: As a result of the Cures Act, medical imaging exams and procedure reports are released immediately into your electronic medical record. You may view this report before your referring provider. If you have questions, please contact your health care provider. INDICATION: PICC placement. IMPRESSION: One view. Tip of the right-sided PICC catheter mid SVC at the hilum. Dictated by Darrick Cartagena MD @ 12/27/2022 1:10:49 PM (Electronically Signed)
--- NOTE | 2022-12-27 11:11 | CRLHL7_ITS ---
For Patients: As a result of the Century Cures Act, medical imaging exams and procedure reports are released immediately into your electronic medical record. You may view this report before your referring provider. If you have questions, please contact your health care provider. Indication: PICC placement Technique: Grayscale images of the right basilic vein. IMPRESSION: Sonographic guidance for right arm PICC line placement. Dictated by Román Bernstein MD @ 12/28/2022 11:08:45 AM (Electronically Signed)
[2022-12-27 15:25] VITALS: BP 134/64; PULSE 80; RESP 16; TEMP 36.6; O2SAT 96
[2022-12-27] MEDS: METFORMIN ER 500 MG 2000 MG PO (17:47)
[2022-12-27] MEDS: 0.9 % SODIUM CHLORIDE 250 ml IV (17:51)
[2022-12-27 19:00] VITALS: BP 121/55; PULSE 80; RESP 18; TEMP 36.9; O2SAT 96
[2022-12-27] MEDS: ATORVASTATIN CALCIUM 40 MG TABLET PO (20:25)
--- NOTE | 2022-12-27 22:33 | PC.NURSE ---
Shift [id number]- Patient denies pain throughout shift. He is up independently and tolerates well. Wound vac with small amount of bloody output. CAM boot on.
[2022-12-27 23:00] VITALS: BP 134/63; PULSE 79; RESP 20; TEMP 37.3; O2SAT 94
[2022-12-28] MEDS: ACETAMINOPHEN 500 MG TABLET 1000 MG PO (01:45)
[2022-12-28] MEDS: CEFEPIME HCL 2 GM in 0.9 % SODIUM CHLORIDE Mini-bag 100 ML IVPB ×2 (04:15→15:57)
[2022-12-28] MEDS: 0.9 % SODIUM CHLORIDE 250 ml IV (04:16)
[2022-12-28 04:23] VITALS: BP 151/76; PULSE 75; RESP 20; TEMP 36.6; O2SAT 93
--- NOTE | 2022-12-28 06:40 | PC.NURSE ---
[id number]: Patient pleasant and cooperative. C/o R. shoulder pain. Ice and Tylenol for relief. Independent in room. Afebrile. CMS intact. Wound vac draining minimal amount of bloody drainage.
[2022-12-28 07:30] VITALS: BP 147/84; PULSE 82; RESP 20; TEMP 36.3; O2SAT 95
[2022-12-28] MEDS: AMLODIPINE 10 MG TABLET PO (09:17)
[2022-12-28] MEDS: lisinopriL 20 MG TABLET PO (09:17)
[2022-12-28] MEDS: hydroCHLOROthiazide 25 MG TABLET PO (09:17)
[2022-12-28] MEDS: PIOGLITAZONE HCL 15 MG TABLET 30 MG PO (09:18)
[2022-12-28] MEDS: SODIUM CHLORIDE 0.9 % (FLUSH) 10 ML SYRINGE 5 ML IVF ×2 (09:18→21:12)
[2022-12-28 11:45] VITALS: BP 108/64; PULSE 79; RESP 18; TEMP 36.5; O2SAT 96
--- NOTE | 2022-12-28 14:13 | PM.IMPN1 ---
Progress Note: A&P Assessment and plan (1) Status post ORIF of fracture of ankle: Problem details: Right ankle open reduction internal fixation (Dr. Peoples, 11/05/2022) Status: Acute (2) Postoperative infection: Problem details: - s/p right leg wound I&D and wound vac application (GAE, 12/26/22). - Continue wound vac, cam boot walker, vancomycin and cefepime, pending culture results. PICC placed yesterday. Status: Acute (3) Sleep apnea: Problem details: Clinically suspected. Recommend outpatient sleep study. Status: Suspected (4) Diabetes: Problem details: - last hemoglobin A1c was 5.9%. He has had low blood sugars as an outpatient, recently as low as 50. For that reason glipizide is on hold and he is on Levemir 35 units twice a day instead of Lantus 70 units nightly, which he takes at home. Also on ISS ACHS. - 12/27/22 BG 130-250s. Will accept a higher inpatient goal for BG to avoid hypoglycemia. No change to current regimen. Status: Chronic (5) Hypertension associated with diabetes: Problem details: - fairly well controlled. Continue outpatient regimen. Status: Chronic (6) Mixed hyperlipidemia: Problem details: - Continue outpatient regimen. Status: Chronic Subjective Time Seen by Provider: 09:07 Date Seen: 12/28/22 Interval history: Zackery is ambulating well with the cam boot walker. He has no complaints. Exam Narrative: Exam Narrative: General: No acute distress. Awake, alert, oriented. No pallor. No jaundice. Sitting up in the chair and eating breakfast. Oropharynx: Clear. Mucous membranes moist. Cardiovascular: Regular rate and rhythm. No murmurs, gallops, or rubs. Respiratory: Clear to auscultation bilaterally. No wheezes or crackles. Extremities: No pedal edema on the left. Wound vac and tall Cam boot walker on the right lower leg. Const: Vital Signs, click to edit/add: Vital Signs - 24 hr 12/27/22 15:25 12/27/22 19:00 12/27/22 23:00 Temperature 98 F 98.4 F 99.1 F Pulse Rate [Pulse Oximeter] 80 80 79 Respiratory Rate 16 18 20 Blood Pressure [Le ft Arm] 134/64 134/63 Blood Pressure [Ri ght Arm] 121/55 L Pulse Oximetry 96 96 94 Oxygen Delivery Me thod Room Air Room Air Room Air 12/28/22 04:23 Temperature 97.8 F Pulse Rate [Pulse Oximeter] 75 Respiratory Rate 20 Blood Pressure [Le ft Arm] 151/76 H Blood Pressure [Ri ght Arm] Pulse Oximetry 93 Oxygen Delivery Me thod Room Air
[2022-12-28 15:30] VITALS: BP 129/69; PULSE 78; RESP 18; TEMP 35.9; O2SAT 95
[2022-12-28] MEDS: METFORMIN ER 500 MG 2000 MG PO (17:40)
[2022-12-28 19:00] VITALS: BP 133/67; PULSE 73; RESP 21; TEMP 36.8; O2SAT 95
--- NOTE | 2022-12-28 19:21 | PC.NURSE ---
AFEBRILE. DENIED PAIN. WOUND VAC TO RLE WELL CAM BOOT. TOLERATING REGULAR DIET WITH NO C/O N/V.
[2022-12-28] MEDS: ATORVASTATIN CALCIUM 40 MG TABLET PO (21:12)
[2022-12-28 22:04] VITALS: BP 141/75; PULSE 77; RESP 22; TEMP 36.6; O2SAT 95
[2022-12-29 03:00] VITALS: BP 135/70; PULSE 73; RESP 18; TEMP 36.4; O2SAT 94
[2022-12-29] MEDS: CEFEPIME HCL 2 GM in 0.9 % SODIUM CHLORIDE Mini-bag 100 ML IVPB ×2 (03:37→16:21)
--- NOTE | 2022-12-29 07:18 | PC.NURSE ---
Patient pleasant, alert and oriented.?Up independently in room. Used call light when needing help. PICC line in right forearm not used for 0345 antibiotic administration due to redness at site. He denied any pain at site but reports having some discomfort. Charge nurse updated. Patient is afebrile. VSS. IV on left hand patent. Patient denied any discomfort at 0600.
[2022-12-29 07:45] VITALS: BP 144/79; PULSE 70; RESP 16; TEMP 36.2; O2SAT 95
[2022-12-29] MEDS: lisinopriL 20 MG TABLET PO (08:45)
[2022-12-29] MEDS: hydroCHLOROthiazide 25 MG TABLET PO (08:45)
[2022-12-29] MEDS: PIOGLITAZONE HCL 15 MG TABLET 30 MG PO (08:45)
[2022-12-29] MEDS: AMLODIPINE 10 MG TABLET PO (08:45)
[2022-12-29] MEDS: SODIUM CHLORIDE 0.9 % (FLUSH) 10 ML SYRINGE 5 ML IVF ×2 (08:46→20:52)
--- NOTE | 2022-12-29 10:23 | W.PM.INFDCN ---
Consultation Information Consultation Information Date of Consult: 12/29/22 Requesting Physician: Charles Peoples Reason for Consult: Hardware associated post-operative infection Consultation Statement: This patient recommendation is based on a telemedicine consult request which was completed asynchronously through chart review and information provided by the primary physician. The patient was not seen or examined today. The evaluation is consultative in nature and all patient care and treatment decisions can either be accepted or rejected by the patient's primary hospital-based treating physician using their own independent medical judgment for their patient. [employer] contact information: Please call [facility] call center [phone] HPI - Infectious Disease History of Present Illness History of Present Illness: 77 yo M with HTN, HLD, DM, CARLOS, fall with R distal fibular fracture s/p ORIF and syndesmosis fixation (11/05/22) c/b post-operative infection. Per orthopedic clinic notes, pt began having a small amount of erythema around the surgical incision and some drainage starting 12/18/22. He was started on cephalexin 500 mg QID x 10 days for treatment of a post-op infection. Pt was seen again in ortho clinic on 12/25, at which time pt reported decrease in drainage after initiating antibiotics, although he was still noticing some spotting on his sock. Denied fevers or chills at that time. Exam showed a small amount of seropurulent drainage and mild surrounding erythema. Therefore, it was recommended that he undergo I&D. Pt underwent I&D on 12/26/22. Per operative note, there was an area of necrotic tissue with surrounding erythema over the central aspect of the lateral skin incision, no deep fluid collection. The plate is visible in the base of the wound. Pt was admitted for IV antibiotics and ID consult. Pt is currently on vanc, cefepime. PICC line inserted 12/27. [facility] Medical History (Updated 12/28/22 @ 14:18 by Ania Mckay MD) Sleep apnea ?G47.30 - Sleep apnea, unspecified (ICD-10) Mixed hyperlipidemia ?E78.2 - Mixed hyperlipidemia (ICD-10) Hypertension associated with diabetes ?E11.59 - Type 2 diabetes mellitus with other circulatory complications (ICD-10) ?I15.2 - Hypertension secondary to endocrine disorders (ICD-10) Diabetes ?E11.9 - Type 2 diabetes mellitus without complications (ICD-10) Surgical History Status post ORIF of fracture of ankle (11/05/22) ?Z98.890 - Other specified postprocedural states (ICD-10) ?Z87.81 - Personal history of (healed) traumatic fracture (ICD-10) Family History Father Lung cancer Mother Diabetes Brother Diabetes Sister Diabetes Social History (Updated 12/26/22 @ 16:18 by Gregorio Ordoñez MD) Narrative: He lives with Bernarda-Life partner near [employer]. He reports this is going well for him. He does not smoke. He drinks occasionally, not every week. Code status is full. Healthcare power of supervisor throwing department is his daughter, Radha Leon, lives next door to him. What is your current living situation?: I presently have a place to live Problems where you live: no known problems Problems where you live details: none to report In the past 12 months, utilities in danger of being shut off: no In past 12 months, lack of transportation kept you from medical appts, meetings, work, or getting things needed for daily living: no In the past 12 mos, have been you worried that your food would run out before you had money to buy more?: never true In the past 12 mos, the food you bought just didn't last and you didn't have money to buy more?: never true Highest level of school completed/degree received: high school graduate Smoking Status: Never smoker Do you use any of these nicotine containing products: None Second hand tobacco smoke exposure: No How often do you have a drink containing alcohol: monthly or less Alcohol type: beer How many standard drinks containing alcohol do you have on a typical day: 1 or 2 How often do you have six or more drinks on one occasion: Never AUDIT-C Alcohol total score: 1 Non-prescribed substance use: denies use Caffeine: Yes How often does anyone, including family, friends and others, physically hurt you: never How often does anyone, including family, friends and others, insult or talk down to you: never How often does anyone, including family, friends and others, threaten you with harm: never How often does anyone, including family, friends and others, scream or curse at you: never service: Yes Home Medications and Allergies Home Medications and Allergies Inpatient Medications: Active Medications Generic Name Dose Route Start Last Admin Trade Name Frebarby PRN Reason Stop Dose Admin Acetaminophen 1,000 mg 12/26/22 14:18 12/28/22 01:45 Acetaminophen 500 Mg Tablet PO 1,000 mg Q6H PRN Administration pain Amlodipine Besylate 10 mg 12/27/22 09:00 12/29/22 08:45 Amlodipine 10 Mg Tablet PO 10 mg DAILY CARLOS Administration Atorvastatin Calcium 40 mg 12/26/22 21:00 12/28/22 21:12 Atorvastatin Calcium 40 Mg Tablet PO 40 mg HS CARLOS Administration Hydrochlorothiazide 25 mg 12/27/22 09:00 12/29/22 08:45 Hydrochlorothiazide 25 Mg Tablet PO 25 mg DAILY CARLOS Administration Cefepime HCl 2 gm/ Sodium 100 mls @ 200 mls/hr 12/26/22 15:45 12/29/22 03:37 Chloride IVPB 200 mls/hr Q12H CARLOS Administration Vancomycin HCl 1,250 mg/ 262.5 mls @ 210 mls/hr 12/27/22 06:00 12/29/22 05:59 Sodium Chloride IVPB 210 mls/hr Q12H CARLOS Administration Protocol Insulin Aspart 0 unit 12/26/22 17:30 12/29/22 08:44 Insulin Aspart 100 Unit/Ml (Novolog) SUBCUT 2 unit ACHS CARLOS Administration Protocol Lisinopril 20 mg 12/27/22 09:00 12/29/22 08:45 Lisinopril 20 Mg Tablet PO 20 mg DAILY CARLOS Administration Metformin HCl 2,000 mg 12/26/22 18:00 12/28/22 17:40 Metformin Er 500 Mg PO 2,000 mg QPM CARLOS Administration Oxycodone HCl 2.5 - 10 mg 12/26/22 14:13 Oxycodone 5 Mg Tablet PO Q2H PRN Pain Pioglitazone HCl 30 mg 12/27/22 09:00 12/29/22 08:45 Pioglitazone Hcl 15 Mg Tablet PO 30 mg DAILY CARLOS Administration Sodium Chloride 5 ml 12/26/22 21:00 12/29/22 08:46 Sodium Chloride 0.9 % (Flush) 10 Ml Syringe IVF 5 ml BID CARLOS Administration Sodium Chloride 250 ml 12/26/22 16:30 12/28/22 04:16 0.9 % Sodium Chloride 250 Ml IV 250 ml Q24H CARLOS Administration Vitamin D 25 mcg 12/27/22 09:00 12/29/22 08:45 Cholecalciferol (Vitamin D3) 25 Mcg Tablet (1000 Unit) PO 25 mcg DAILY CARLOS Administration Discontinued Medications Generic Name Dose Route Start Last Admin Trade Name Freq PRN Reason Stop Dose Admin Cefazolin Sodium Confirm 12/26/22 12:06 Cefazolin 2 Gm Inj Administered 12/26/22 12:07 Dose 2 gm .ROUTE .STK-MED ONE Cefazolin Sodium 2 gm 12/26/22 12:21 12/26/22 12:21 Cefazolin 2 Gm Inj IVP 12/26/22 12:22 2 gm ONCE ONE Administration Dexamethasone Confirm 12/26/22 12:06 Dexamethasone 4 Mg/Ml Vial Administered 12/26/22 12:07 Dose 4 mg .ROUTE .STK-MED ONE Ephedrine Sulfate 5 - 10 mg 12/26/22 10:05 Ephedrine Sulfate 5 Mg/Ml Inj IVP Q5M PRN Ethyl Chloride 1 applic 12/26/22 10:05 Ethyl Chloride 1 Application TOPICAL ONCE PRN Fentanyl 50 mcg 12/26/22 10:05 Fentanyl 100 Mcg/2 Ml Inj IVP Q5M PRN Pain Hydralazine HCl 10 mg 12/26/22 10:05 Hydralazine Hcl 20 Mg/Ml Inj IVP ONCE PRN Hypertension Hydromorphone HCl 0.5 mg 12/26/22 10:05 Hydromorphone 0.5 Mg/0.5 Ml Inj IVP Q10M PRN Pain Hydroxyzine Pamoate 25 mg 12/26/22 10:05 Hydroxyzine Pamoate 25 Mg Capsule PO 12/26/22 10:06 ONCE ONE Lactated Ringer's 1,000 mls @ 100 mls/hr 12/26/22 10:05 12/26/22 14:38 Lactated Ringers 1000 Ml IV 20 mls/hr .Q10H CARLOS Infusion Vancomycin HCl 1,750 mg/ 517.5 mls @ 258.75 mls/hr 12/26/22 15:45 Sodium Chloride IVPB Q24H CARLOS Protocol Vancomycin HCl 2,500 mg/ 525 mls @ 210 mls/hr 12/26/22 16:30 12/26/22 17:56 Sodium Chloride IVPB 12/26/22 18:59 210 mls/hr ONCE ONE Administration Labetalol HCl 5 - 10 mg 12/26/22 10:05 Labetalol Hcl 5 Mg/Ml Inj IVP ONCE PRN Hypertension Lidocaine HCl Confirm 12/26/22 12:06 Lidocaine 2% (Pf) 5 Ml Vial Administered 12/26/22 12:07 Dose 5 ml .ROUTE .STK-MED ONE Meperidine HCl 12.5 mg 12/26/22 10:05 Meperidine 25 Mg/Ml Inj IVP ONCE PRN Shivering Metoclopramide HCl 10 mg 12/26/22 10:05 Metoclopramide Hcl 5 Mg/Ml Inj IVP ONCE PRN Nausea Ondansetron HCl 4 mg 12/26/22 10:05 Ondansetron 2 Mg/Ml Inj IVP ONCE PRN Nausea Ondansetron HCl Confirm 12/26/22 12:06 Ondansetron 2 Mg/Ml Inj Administered 12/26/22 12:07 Dose 4 mg .ROUTE .STK-MED ONE Phenylephrine HCl 100 mcg 12/26/22 10:05 Phenylephrine 100 Mcg/Ml Syringe IVP Q5M PRN Propofol Confirm 12/26/22 12:06 Propofol 10 Mg/Ml Inj Administered 12/26/22 12:07 Dose 200 mg IVP .STK-MED ONE Sevoflurane Confirm 12/26/22 12:06 Sevoflurane Soln Administered 12/26/22 12:07 Dose 1 each IH .STK-MED ONE Sodium Chloride 10 ml 12/26/22 10:05 12/26/22 10:26 Sodium Chloride 0.9 % (Flush) 10 Ml Syringe IVF 10 ml .FLUSH PRN Administration Allergies Allergy/AdvReac Type Severity Reaction Status Date / Time No Known Drug Allergies Allergy Verified 12/26/22 10:15 Objective - Infectious Disease Objective Vital Signs: Vital Signs - 24 hr 12/28/22 11:45 12/28/22 15:30 12/28/22 15:30 Temperature 97.7 F 96.7 F L Pulse Rate [Pulse Oximeter] 79 78 78 Respiratory Rate 18 18 18 Blood Pressure [Left Arm] 108/64 129/69 Pulse Oximetry 96 95 Oxygen Delivery Method Room Air Room Air 12/28/22 19:00 12/28/22 22:04 12/29/22 03:00 Temperature 98.2 F 97.8 F 97.6 F Pulse Rate [Pulse Oximeter] 73 77 73 Respiratory Rate 21 22 18 Blood Pressure [Left Arm] 133/67 141/75 H 135/70 Pulse Oximetry 95 95 94 Oxygen Delivery Method Room Air Room Air Room Air 12/29/22 07:45 Temperature 97.2 F L Pulse Rate [Pulse Oximeter] 70 Respiratory Rate 16 Blood Pressure [Left Arm] 144/79 H Pulse Oximetry 95 Oxygen Delivery Method Room Air Narrative: Patient was not seen or examined. Results - Infectious Disease Results Labs: 12/26/22 14:41 Ankle Right Gram Stain - Final 12/26/22 14:41 Ankle Right Aerobic Culture - Preliminary Culture in Progress 12/26/22 14:41 Ankle Right Anaerobic Culture - Preliminary Culture in Progress 12/26/22 12:19 Ankle Right Gram Stain - Final 12/26/22 12:19 Ankle Right Aerobic Culture - Preliminary Culture in Progress 12/26/22 12:19 Ankle Right Anaerobic Culture - Preliminary 12/26/22 14:39 Ankle Right Gram Stain - Final 12/26/22 14:39 Ankle Right Aerobic Culture - Preliminary Culture in Progress 12/26/22 14:39 Ankle Right Anaerobic Culture - Preliminary Culture in Progress Laboratory Tests 12/27/22 Range/Units 07:40 WBC 7.00 (4.50-11.00) K/uL RBC 4.29 L (4.30-5.90) m/uL Hgb 12.3 L (13.5-17.5) gm/dL Hct 37.9 (37.0-53.0) % MCV 88 (80-100) fL MCH 29 (26-34) pg MCHC 33 (32-36) gm/dL RDW Coeff of Mahendra 14.0 (11.5-15.5) % Plt Count 153 (140-440) K/uL Neut % (Auto) 72.5 H (42.0-72.0) % Lymph % (Auto) 19.9 L (20-44) % Ward % (Auto) 7.1 (0.0-11.0) % Eos % (Auto) 0.1 (0.0-7.0) % Baso % (Auto) 0.1 (0.0-3.0) % Neut # (Auto) 5.10 (1.7-7.0) K/uL Lymph # (Auto) 1.40 (0.90-2.90) K/uL Ward # (Auto) 0.50 (0.00-0.90) K/UL Eos # (Auto) 0.01 (0.00-0.50) K/uL Baso # (Auto) 0.01 (0.00-0.30) K/uL Abs Immat Gran (auto) 0.02 (0.00-0.30) K/uL Imm/Tot Granulo (auto) 0.3 % Sodium 141 (135-149) mmol/L Potassium 4.3 (3.6-5.1) mmol/L Chloride 107 (96-114) mmol/L Carbon Dioxide 23 (20-32) mmol/L Anion Gap 11 (7-15) mEq/L BUN 30 (7-30) mg/dL Creatinine 0.8 (0.5-1.5) mg/dL Estimated Creat Clear 60.88 Estimated GFR 91 ml/min Glucose 132 H (60-115) mg/dL Calcium 9.0 (8.4-10.6) mg/dL C-Reactive Protein 0.5 (0.5-1.0) mg/dL Impression & Recommendations Recommendations Impression & Recommendations: Micro: 12/26 OR cultures: NGTD. GS--GPCs Abx: Cephalexin 12/18 - 12/26 Cefazolin 12/26 Vanc 12/26 - present Cefepime 12/26 - present Problems: #R distal fibular fracture s/p ORIF and syndesmosis fixation (11/05/22) c/b hardware-associated post-operative infection 77 yo M with HTN, HLD, DM, CARLOS, fall with R distal fibular fracture s/p ORIF and syndesmosis fixation (11/05/22) c/b post-operative infection, now s/p I&D on 12/26 with OR cultures pending. Pt began having a small amount of erythema around the incision and some drainage starting 12/18/22, and was started on cephalexin 500 mg QID x 10 days for treatment of a post-op infection. Given continued symptoms, pt was taken to the OR on 12/26 for I&D. Necrotic tissue was debrided, no deep fluid collection was seen. The plate is visible in the base of the wound. Wound vac was placed. Pt was admitted for IV antibiotics and ID consult. Pt is currently on vanc, cefepime. PICC line inserted 12/27. Recommendations: -Continue vanc, cefepime for now -Will follow-up OR cultures. 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 If nothing grows on OR cultures, will likely recommend home infusion of IV antibiotics with cefazolin 2 g IV q8h for 6 week course (or could alternatively administer as cefazolin 6 g IV continuous infusion over 24 hours daily via pump, if easier for patient administration). Day 1 would be 12/26/22. -Will consider adding rifampin if this ends up being Staph aureus -Would follow 6 weeks of IV antibiotics with PO antibiotic suppression if hardware remains in place. Can consider stopping PO antibiotic suppression if hardware is removed. (per my discussion with ortho, anticipate the hardware will remain in place for at least 1 month) Will continue to follow. Please page the [facility] Call Center ([phone]) with further questions.
[2022-12-29 11:40] VITALS: BP 133/73; PULSE 95; RESP 16; TEMP 36.3; O2SAT 97
--- NOTE | 2022-12-29 13:20 | P.ORPN_ITS ---
Subjective Subjective Date Seen: 12/29/22 Principal diagnosis: Day 3 s/p right leg wound I&D and wound vac application Interval history: Zackery is ambulating well with the cam boot walker. He has no complaints. No fevers or chills. No numbness or tingling reported. Plan is for wound VAC change at the bedside today. Ortho Exam Narrative Exam Narrative: After removing the wound VAC, the wound looked peers healthy. It remains 3 cm x 1.5 cm with a depth down approaching the hardware/bone. The beefy red tissue is without follow over today. No active drainage. Neurologically he remains intact distally to sensory light touch and motor function superficial and deep peroneal as well as plantar distribution. Palpable DP PT pulse. Const Vital Signs, click to edit/add: Vital Signs - 24 hr 12/28/22 15:30 12/28/22 15:30 12/28/22 19:00 Temperature 96.7 F L 98.2 F Pulse Rate [Pulse Oximeter] 78 78 73 Respiratory Rate 18 18 21 Blood Pressure [Left Arm] 129/69 133/67 Pulse Oximetry 95 95 Oxygen Delivery Method Room Air Room Air 12/28/22 22:04 12/29/22 03:00 12/29/22 07:45 Temperature 97.8 F 97.6 F 97.2 F L Pulse Rate [Pulse Oximeter] 77 73 70 Respiratory Rate 22 18 16 Blood Pressure [Left Arm] 141/75 H 135/70 144/79 H Pulse Oximetry 95 94 95 Oxygen Delivery Method Room Air Room Air Room Air 12/29/22 11:40 Temperature 97.3 F L Pulse Rate [Pulse Oximeter] 95 Respiratory Rate 16 Blood Pressure [Left Arm] 133/73 Pulse Oximetry 97 Oxygen Delivery Method Room Air Assessment and Plan Assessment and plan (1) Status post ORIF of fracture of ankle: Problem details: Right ankle open reduction internal fixation (Dr. Peoples, 11/05/2022) Status: Acute (2) Postoperative infection: Problem details: - s/p right leg wound I&D and wound vac application (RIArmando, 12/26/22). - Continue wound vac, cam boot walker, vancomycin and cefepime, pending culture results. PICC placed yesterday. Status: Acute (3) Sleep apnea: Problem details: Clinically suspected. Recommend outpatient sleep study. Status: Suspected (4) Diabetes: Problem details: - last hemoglobin A1c was 5.9%. He has had low blood sugars as an outpatient, recently as low as 50. For that reason glipizide is on hold and he is on L evemir 35 units twice a day instead of Lantus 70 units nightly, which he takes at home. Also on ISS ACHS. - 12/27/22 BG 130-250s. Will accept a higher inpatient goal for BG to avoid hypoglycemia. No change to current regimen. Status: Chronic (5) Hypertension associated with diabetes: Problem details: - fairly well controlled. Continue outpatient regimen. Status: Chronic (6) Mixed hyperlipidemia: Problem details: - Continue outpatient regimen. Status: Chronic Plan Wound VAC was changed today at the bedside: After removing the previous wound VAC, ChloraPrep was utilized around the skin surface avoiding the wound itself. After allowing this to dry, the new sponge was cut, fit inside the wound careful to minimize the sponge on the skin. It was then sealed with the adhesive the came with the kit. The seal was cut over the top of the black sponge and the suction device placed. It was inserted into the machine and the machine engaged. The suction was complete with excellent seal. It will be continued at 125 mmHg, continuous. He tolerated this well. We continue to use the VAC via device. It is plugged in and therefore battery should not be an issue. There is minimal drainage (no discernible volume). Anticipate discharge once cultures return for oral antibiotic specificity. Wound VAC changes in the future may be needed via home health verses wound clinic verses return to our Orthopedic Clinic in an outpatient situation.
--- NOTE | 2022-12-29 14:27 | PM.IMPN1 ---
Progress Note: A&P Assessment and plan (1) Status post ORIF of fracture of ankle: Problem details: Right ankle open reduction internal fixation (Dr. Peoples, 11/05/2022) Status: Acute (2) Postoperative infection: Problem details: - s/p right leg wound I&D and wound vac application (GAE, 12/26/22). - Continue wound vac, cam boot walker, vancomycin and cefepime. PICC placed 12/27/22. Cultures are growing G+ cocci, awaiting further information. Status: Acute (3) Sleep apnea: Problem details: Clinically suspected. Recommend outpatient sleep study. Status: Suspected (4) Diabetes: Problem details: - last hemoglobin A1c was 5.9%. He has had low blood sugars as an outpatient, recently as low as 50. For that reason glipizide is on hold and he is on Levemir 35 units twice a day instead of Lantus 70 units nightly, which he takes at home. Also on ISS ACHS. - 12/27/22 BG 130-170s. Will accept a higher inpatient goal for BG to avoid hypoglycemia. No change to current regimen. - 12/28/22 BG 110s-200s. No change to current regimen. Status: Chronic (5) Hypertension associated with diabetes: Problem details: - fairly well controlled. Continue outpatient regimen. Status: Chronic (6) Mixed hyperlipidemia: Problem details: - Continue outpatient regimen. Status: Chronic Subjective Time Seen by Provider: 09:12 Date Seen: 12/29/22 Interval history: Zackery is doing well. No complaints. Nurse noted redness around PICC site. She has been using his IV instead. PICC flushes okay. Patient states minimal pain at the PICC site, and only with palpation. Exam Narrative: Exam Narrative: General: No acute distress. Awake, alert, oriented. No pallor. No jaundice. Sitting up in the chair. Oropharynx: Clear. Mucous membranes moist. Cardiovascular: Regular rate and rhythm. No murmurs, gallops, or rubs. Respiratory: Clear to auscultation bilaterally. No wheezes or crackles. Extremities: Right upper arm PICC site has ecchymosis, no rubor or calor. Minimally tender with palpation. No induration or purulence. No pedal edema on the left lower extremity. Wound vac and tall Cam boot walker on the right lower leg. Const: Vital Signs, click to edit/add: Vital Signs - 24 hr 12/28/22 15:30 12/28/22 15:30 12/28/22 19:00 Temperature 96.7 F L 98.2 F Pulse Rate [Pulse Oximeter] 78 78 73 Respiratory Rate 18 18 21 Blood Pressure [Le ft Arm] 129/69 133/67 Pulse Oximetry 95 95 Oxygen Delivery Me thod Room Air Room Air 12/28/22 22:04 12/29/22 03:00 12/29/22 07:45 Temperature 97.8 F 97.6 F 97.2 F L Pulse Rate [Pulse Oximeter] 77 73 70 Respiratory Rate 22 18 16 Blood Pressure [Le ft Arm] 141/75 H 135/70 144/79 H Pulse Oximetry 95 94 95 Oxygen Delivery Me thod Room Air Room Air Room Air 12/29/22 11:40 Temperature 97.3 F L Pulse Rate [Pulse Oximeter] 95 Respiratory Rate 16 Blood Pressure [Le ft Arm] 133/73 Pulse Oximetry 97 Oxygen Delivery Me thod Room Air
[2022-12-29 15:30] VITALS: BP 120/76; PULSE 86; RESP 18; TEMP 36.3; O2SAT 94
--- NOTE | 2022-12-29 16:10 | PC.SOCIAL ---
Discharge planning: Met with pt and early this morning at their request. had many questions about home care and IV antibiotic care which were answered. is aware that arrangements for home IV can not be made until there is a plan from MD for treatment. and pt agree they are not interested in a [facility] stay and that pt will be going home at discharge. No Home Health arrangements have yet been started. piece dye worker to follow up as needed.
[2022-12-29] MEDS: 0.9 % SODIUM CHLORIDE 250 ml IV (16:21)
--- NOTE | 2022-12-29 17:09 | PC.NURSE ---
Pt alert and oriented. Pt had no complaints of pain. Pt up independent in room. Pt wound vac was changed by the orthopedic surgeon in the early afternoon. Pt?s at bedside most of shift. Pt kept boot on during shift. ?Pt had MOCHA done and score 22/30.
[2022-12-29] MEDS: METFORMIN ER 500 MG 2000 MG PO (17:38)
--- NOTE | 2022-12-29 17:44 | PC.NURSE ---
Pt's PIIC line assessed by RN and Hospitalist. Per hospitalist round Pt's PIIC line is bruising. Dressing on PIIC changed and bruising present. Pt's PIIC patent. Per Hospitalist PIIC line okay to be used for medication administration.
[2022-12-29 19:00] VITALS: BP 132/72; PULSE 83; RESP 20; TEMP 37.2; O2SAT 95
[2022-12-29] MEDS: ATORVASTATIN CALCIUM 40 MG TABLET PO (20:51)
[2022-12-29 23:00] VITALS: BP 144/74; PULSE 85; RESP 18; TEMP 36.4; O2SAT 96
[2022-12-30 03:00] VITALS: BP 140/62; PULSE 74; RESP 18; TEMP 36.6; O2SAT 94
[2022-12-30] MEDS: CEFEPIME HCL 2 GM in 0.9 % SODIUM CHLORIDE Mini-bag 100 ML IVPB (04:10)
--- NOTE | 2022-12-30 08:03 | PC.NURSE ---
Patient up ambulating to bathroom independently. Wound vac patent and draining a scant amount of purulent drainage. Picc line patent and continues to have surrounding bruising. Denied pain.
--- NOTE | 2022-12-30 08:17 | PM.ORPN ---
Subjective Subjective Date Seen: 12/30/22 Principal diagnosis: Day 4 s/p right leg wound I&D and wound vac application Interval history: Patient reports doing well. No acute events over night. Minimal pain. Denies fevers, chills, aches, N/V, CP, SOB/CORTEZ, or lightheadedness. Ortho Exam Narrative Exam Narrative: Right ankle: Cam boot in place Mild-moderate swelling of the ankle/foot Wound VAC in place, good condition, good seal; very small amount of fluid within the drainage to, yellow in color, not cloudy (pump itself has no measurable amount of fluid drainage) 2+ DP/PT pulses, pink warm digits with brisk cap refill; intact dermatomes and myotomes distally including the common peroneal, tibial, saphenous, and sural nerve distributions Const Vital Signs, click to edit/add: Vital Signs - 24 hr 12/29/22 11:40 12/29/22 15:30 12/29/22 19:00 Temperature 97.3 F L 97.4 F L 99.0 F Pulse Rate [Pulse Oximeter] 95 86 83 Respiratory Rate 16 18 20 Blood Pressure [Left Arm] 133/73 120/76 132/72 Pulse Oximetry 97 94 95 Oxygen Delivery Method Room Air Room Air Room Air 12/29/22 23:00 12/30/22 03:00 Temperature 97.6 F 97.8 F Pulse Rate [Pulse Oximeter] 85 74 Respiratory Rate 18 18 Blood Pressure [Left Arm] 144/74 H 140/62 H Pulse Oximetry 96 94 Oxygen Delivery Method Room Air Room Air Assessment and Plan Assessment and plan (1) Status post ORIF of fracture of ankle: Problem details: Right ankle open reduction internal fixation (Dr. Peoples, 11/05/2022) Status: Acute (2) Postoperative infection: Problem details: - s/p right leg wound I&D and wound vac application ([facility], 12/26/22). - Continue wound vac, cam boot walker, vancomycin and cefepime. PICC placed 12/27/22. Cultures are growing G+ cocci, awaiting further information. Status: Acute (3) Sleep apnea: Problem details: Clinically suspected. Recommend outpatient sleep study. Status: Suspected (4) Diabetes: Problem details: - last hemoglobin A1c was 5.9%. He has had low blood sugars as an outpatient, recently as low as 50. For that reason glipizide is on hold and he is on Levemir 35 units twice a day instead of Lantus 70 units nightly, which he takes at home. Also on ISS ACHS. - 12/27/22 BG 130-170s. Will accept a higher inpatient goal for BG to avoid hypoglycemia. No change to current regimen. - 12/28/22 BG 110s-200s. No change to current regimen. Status: Chronic (5) Hypertension associated with diabetes: Problem details: - fairly well controlled. Continue outpatient regimen. Status: Chronic (6) Mixed hyperlipidemia: Problem details: - Continue outpatient regimen. Status: Chronic Plan - PT/OT consult for education and assistance - weightbear as tolerated with Cam boot in place - Social work consult for discharge planning - working on possibility of home care nurse - Prescribed analgesics as needed - Anticipation is for discharge to home with spouse once cultures including sensitivities are received. Will continue IV antibiotics, wound VAC change later this week. * wound VAC documentation/work are currently being filled out by Dr. Peoples. Patient information has also been faxed to wound care, who he will see in 2 weeks as a new patient- wound Care will schedule this.
[2022-12-30 08:37] VITALS: BP 132/67; PULSE 88; RESP 18; TEMP 36.3; O2SAT 94
[2022-12-30] MEDS: PIOGLITAZONE HCL 15 MG TABLET 30 MG PO (08:38)
[2022-12-30] MEDS: lisinopriL 20 MG TABLET PO (08:38)
[2022-12-30] MEDS: AMLODIPINE 10 MG TABLET PO (08:38)
[2022-12-30] MEDS: hydroCHLOROthiazide 25 MG TABLET PO (08:38)
[2022-12-30] MEDS: SODIUM CHLORIDE 0.9 % (FLUSH) 10 ML SYRINGE 5 ML IVF (08:39)
[2022-12-30 09:27] LABS: C.Difficile Negative (Negative)
[2022-12-30 09:29] LABS: CDIFFEPI 027 Presumptive Negative (Negative)
--- NOTE | 2022-12-30 11:34 | W.PM.IDPRG ---
Visit Information Visit Information Date: 12/30/22 Visit Information: Patient was not seen. Subjective Subjective Subjective: This patient recommendation is based on a telemedicine consult request which was completed asynchronously through chart review and information provided by the primary physician. The patient was not seen or examined today. The evaluation is consultative in nature and all patient care and treatment decisions can either be accepted or rejected by the patient's primary hospital-based treating physician using their own independent medical judgment for their patient. Home Medications and Allergies Home Medications and Allergies Inpatient Medications: Active Medications Generic Name Dose Route Start Last Admin Trade Name Freq PRN Reason Stop Dose Admin Acetaminophen 1,000 mg 12/26/22 14:18 12/28/22 01:45 Acetaminophen 500 Mg Tablet PO 1,000 mg Q6H PRN Administration pain Amlodipine Besylate 10 mg 12/27/22 09:00 12/30/22 08:38 Amlodipine 10 Mg Tablet PO 10 mg DAILY CARLOS Administration Atorvastatin Calcium 40 mg 12/26/22 21:00 12/29/22 20:51 Atorvastatin Calcium 40 Mg Tablet PO 40 mg HS CARLOS Administration Hydrochlorothiazide 25 mg 12/27/22 09:00 12/30/22 08:38 Hydrochlorothiazide 25 Mg Tablet PO 25 mg DAILY CARLOS Administration Vancomycin HCl 1,250 mg/ 262.5 mls @ 210 mls/hr 12/27/22 06:00 12/30/22 05:45 Sodium Chloride IVPB 210 mls/hr Q12H CARLOS Administration Protocol Cefepime HCl 2 gm/ Sodium 100 mls @ 200 mls/hr 12/29/22 16:00 12/30/22 04:10 Chloride IVPB 200 mls/hr Q12H CARLOS Administration Insulin Aspart 0 unit 12/26/22 17:30 12/30/22 08:39 Insulin Aspart 100 Unit/Ml (Novolog) SUBCUT 2 unit ACHS CARLOS Administration Protocol Lisinopril 20 mg 12/27/22 09:00 12/30/22 08:38 Lisinopril 20 Mg Tablet PO 20 mg DAILY CARLOS Administration Metformin HCl 2,000 mg 12/26/22 18:00 12/29/22 17:38 Metformin Er 500 Mg PO 2,000 mg QPM CARLOS Administration Oxycodone HCl 2.5 - 10 mg 12/26/22 14:13 Oxycodone 5 Mg Tablet PO Q2H PRN Pain Pioglitazone HCl 30 mg 12/27/22 09:00 12/30/22 08:38 Pioglitazone Hcl 15 Mg Tablet PO 30 mg DAILY CARLOS Administration Sodium Chloride 5 ml 12/26/22 21:00 12/30/22 08:39 Sodium Chloride 0.9 % (Flush) 10 Ml Syringe IVF 5 ml BID CARLOS Administration Sodium Chloride 250 ml 12/26/22 16:30 12/29/22 16:21 0.9 % Sodium Chloride 250 Ml IV 250 ml Q24H CARLOS Administration Vitamin D 25 mcg 12/27/22 09:00 12/30/22 08:38 Cholecalciferol (Vitamin D3) 25 Mcg Tablet (1000 Unit) PO 25 mcg DAILY CARLOS Administration Discontinued Medications Generic Name Dose Route Start Last Admin Trade Name Freq PRN Reason Stop Dose Admin Cefazolin Sodium Confirm 12/26/22 12:06 Cefazolin 2 Gm Inj Administered 12/26/22 12:07 Dose 2 gm .ROUTE .STK-MED ONE Cefazolin Sodium 2 gm 12/26/22 12:21 12/26/22 12:21 Cefazolin 2 Gm Inj IVP 12/26/22 12:22 2 gm ONCE ONE Administration Dexamethasone Confirm 12/26/22 12:06 Dexamethasone 4 Mg/Ml Vial Administered 12/26/22 12:07 Dose 4 mg .ROUTE .STK-MED ONE Ephedrine Sulfate 5 - 10 mg 12/26/22 10:05 Ephedrine Sulfate 5 Mg/Ml Inj IVP Q5M PRN Ethyl Chloride 1 applic 12/26/22 10:05 Ethyl Chloride 1 Application TOPICAL ONCE PRN Fentanyl 50 mcg 12/26/22 10:05 Fentanyl 100 Mcg/2 Ml Inj IVP Q5M PRN Pain Hydralazine HCl 10 mg 12/26/22 10:05 Hydralazine Hcl 20 Mg/Ml Inj IVP ONCE PRN Hypertension Hydromorphone HCl 0.5 mg 12/26/22 10:05 Hydromorphone 0.5 Mg/0.5 Ml Inj IVP Q10M PRN Pain Hydroxyzine Pamoate 25 mg 12/26/22 10:05 Hydroxyzine Pamoate 25 Mg Capsule PO 12/26/22 10:06 ONCE ONE Lactated Ringer's 1,000 mls @ 100 mls/hr 12/26/22 10:05 12/26/22 14:38 Lactated Ringers 1000 Ml IV 20 mls/hr .Q10H CARLOS Infusion Vancomycin HCl 1,750 mg/ 517.5 mls @ 258.75 mls/hr 12/26/22 15:45 Sodium Chloride IVPB Q24H ACRLOS Protocol Cefepime HCl 2 gm/ Sodium 100 mls @ 200 mls/hr 12/26/22 15:45 12/29/22 03:37 Chloride IVPB 200 mls/hr Q12H CARLOS Administration Vancomycin HCl 2,500 mg/ 525 mls @ 210 mls/hr 12/26/22 16:30 12/26/22 17:56 Sodium Chloride IVPB 12/26/22 18:59 210 mls/hr ONCE ONE Administration Labetalol HCl 5 - 10 mg 12/26/22 10:05 Labetalol Hcl 5 Mg/Ml Inj IVP ONCE PRN Hypertension Lidocaine HCl Confirm 12/26/22 12:06 Lidocaine 2% (Pf) 5 Ml Vial Administered 12/26/22 12:07 Dose 5 ml .ROUTE .STK-MED ONE Meperidine HCl 12.5 mg 12/26/22 10:05 Meperidine 25 Mg/Ml Inj IVP ONCE PRN Shivering Metoclopramide HCl 10 mg 12/26/22 10:05 Metoclopramide Hcl 5 Mg/Ml Inj IVP ONCE PRN Nausea Ondansetron HCl 4 mg 12/26/22 10:05 Ondansetron 2 Mg/Ml Inj IVP ONCE PRN Nausea Ondansetron HCl Confirm 12/26/22 12:06 Ondansetron 2 Mg/Ml Inj Administered 12/26/22 12:07 Dose 4 mg .ROUTE .STK-MED ONE Phenylephrine HCl 100 mcg 12/26/22 10:05 Phenylephrine 100 Mcg/Ml Syringe IVP Q5M PRN Propofol Confirm 12/26/22 12:06 Propofol 10 Mg/Ml Inj Administered 12/26/22 12:07 Dose 200 mg IVP .STK-MED ONE Sevoflurane Confirm 12/26/22 12:06 Sevoflurane Soln Administered 12/26/22 12:07 Dose 1 each IH .STK-MED ONE Sodium Chloride 10 ml 12/26/22 10:05 12/26/22 10:26 Sodium Chloride 0.9 % (Flush) 10 Ml Syringe IVF 10 ml .FLUSH PRN Administration Allergies Allergy/AdvReac Type Severity Reaction Status Date / Time No Known Drug Allergies Allergy Verified 12/26/22 10:15 Objective - Infectious Disease Objective Vital Signs: Vital Signs - 24 hr 12/29/22 11:40 12/29/22 15:30 12/29/22 19:00 Temperature 97.3 F L 97.4 F L 99.0 F Pulse Rate [Pulse Oximeter] 95 86 83 Respiratory Rate 16 18 20 Blood Pressure [Left Arm] 133/73 120/76 132/72 Pulse Oximetry 97 94 95 Oxygen Delivery Method Room Air Room Air Room Air 12/29/22 23:00 12/30/22 03:00 12/30/22 08:37 Temperature 97.6 F 97.8 F 97.3 F L Pulse Rate [Pulse Oximeter] 85 74 88 Respiratory Rate 18 18 18 Blood Pressure [Left Arm] 144/74 H 140/62 H 132/67 Pulse Oximetry 96 94 94 Oxygen Delivery Method Room Air Room Air Room Air Narrative: Patient was not seen or examined. Results - Infectious Disease Results Labs: 12/26/22 14:41 Ankle Right Gram Stain - Final 12/26/22 14:41 Ankle Right Aerobic Culture - Preliminary 12/26/22 14:41 Ankle Right Anaerobic Culture - Preliminary 12/26/22 14:39 Ankle Right Gram Stain - Final 12/26/22 14:39 Ankle Right Aerobic Culture - Preliminary Culture in Progress 12/26/22 14:39 Ankle Right Anaerobic Culture - Preliminary 12/26/22 12:19 Ankle Right Gram Stain - Final 12/26/22 12:19 Ankle Right Aerobic Culture - Preliminary Culture in Progress 12/26/22 12:19 Ankle Right Anaerobic Culture - Preliminary Laboratory Tests 12/30/22 12/27/22 Range/Units 08:06 07:40 WBC 7.00 (4.50-11.00) K/uL RBC 4.29 L (4.30-5.90) m/uL Hgb 12.3 L (13.5-17.5) gm/dL Hct 37.9 (37.0-53.0) % MCV 88 (80-100) fL MCH 29 (26-34) pg MCHC 33 (32-36) gm/dL RDW Coeff of Mahendra 14.0 (11.5-15.5) % Plt Count 153 (140-440) K/uL Neut % (Auto) 72.5 H (42.0-72.0) % Lymph % (Auto) 19.9 L (20-44) % [place] % (Auto) 7.1 (0.0-11.0) % Eos % (Auto) 0.1 (0.0-7.0) % Baso % (Auto) 0.1 (0.0-3.0) % Neut # (Auto) 5.10 (1.7-7.0) K/uL Lymph # (Auto) 1.40 (0.90-2.90) K/uL [place] # (Auto) 0.50 (0.00-0.90) K/UL Eos # (Auto) 0.01 (0.00-0.50) K/uL Baso # (Auto) 0.01 (0.00-0.30) K/uL Abs Immat Gran (auto) 0.02 (0.00-0.30) K/uL Imm/Tot Granulo (auto) 0.3 % Sodium 141 (135-149) mmol/L Potassium 4.3 (3.6-5.1) mmol/L Chloride 107 (96-114) mmol/L Carbon Dioxide 23 (20-32) mmol/L Anion Gap 11 (7-15) mEq/L BUN 30 (7-30) mg/dL Creatinine 0.8 (0.5-1.5) mg/dL Estimated Creat Clear 60.88 Estimated GFR 91 ml/min Glucose 132 H (60-115) mg/dL Calcium 9.0 (8.4-10.6) mg/dL C-Reactive Protein 0.5 (0.5-1.0) mg/dL Stl C. diff Tox B Gene Negative (Negative) Stl C. diff [id number] Presumptive Negative (Negative) Assessment and Plan Assessment and Plan Assessment and Plan: Micro: 12/26 OR R ankle -GS: GPCs -Aerobic cx: NGTD -Anaerobic cx: GPC (anaerobic only) 12/26 OR R ankle Tissue #1 -GS: GPCs -Aerobic cx: NGTD -Anaerobic cx: GPC (Anaerobic only) 12/26 OR R ankle Tissue #2 -GS: GPCs -Aerobic cx: small amount of coag neg Staph Abx: Cephalexin 12/18 - 12/26 Cefazolin 12/26 Vanc 12/26 - present Cefepime 12/26 - present Problems: #R distal fibular fracture s/p ORIF and syndesmosis fixation (11/05/22) c/b hardware-associated osteomyelitis 77 yo M with HTN, HLD, DM, CARLOS, fall with R distal fibular fracture s/p ORIF and syndesmosis fixation (11/05/22) c/b post-operative infection, now s/p I&D on 12/26 with OR cultures pending. Pt began having a small amount of erythema around the incision and some drainage starting 12/18/22, and was started on cephalexin 500 mg QID x 10 days for treatment of a post-op infection. Given continued symptoms, pt was taken to the OR on 12/26 for I&D. Necrotic tissue was debrided, no deep fluid collection was seen. The plate is visible in the base of the wound. Wound vac was placed. Pt was admitted for IV antibiotics and ID consult. Pt is currently on vanc, cefepime. PICC line inserted 12/27. 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 OR cultures currently growing GPCs only on anaerobic cultures, sent to [facility] reference lab. Turnaround time may be ~48 hours. Per micro lab, unable to grow the GPCs on aerobic culture. One culture (tissue #2) also growing a small amount of coagulase negative Staph. OR culture yield is likely decreased as pt was on cephalexin for ~1 week prior to the OR. Therefore, cefazolin seems a reasonable option as it would provide similar coverage, including MSSA. The anaerobic GPC on OR culture may be a type of Peptostreptococcus, which is generally susceptible to penicillins, cephalosporins. Recommendations: -Can discharge with home infusion of cefazolin 2 g IV q8h for 6 week course from 12/26/22 - 02/05/23 (Alternatively, could administer as cefazolin 6 g IV continuous infusion over 24 hours daily via pump, if easier for patient administration and home infusion company allows for this. -Check weekly CBC with diff, CMP while on cefazolin to monitor for toxicities. -Will follow-up identification of anaerobic GPC. I have also asked the [place] micro lab to add on identification and susceptibilities for the coag neg Staph. Uncertain the significance of the coag neg Staph as it only grew on one culture. If necessary based on final micro results, can change the IV antibiotic as outpatient. -Would follow 6 weeks of IV antibiotics with PO antibiotic suppression since hardware will remain in place. Based on existing micro results, would recommend cefadroxil 500 mg PO BID for ~1 year. Could consider longer term suppression > 1 year, if high risk for limb loss, sinus tract noted, chronic infection of surgical site suspected, or if risks outweigh benefits of stopping.?Can consider stopping PO antibiotic suppression if hardware is ultimately removed. Discussed with Dr. Peoples. Will sign off. Please page the [facility] ([phone]) with further questions.
--- NOTE | 2022-12-30 11:43 | NUTR.NU ---
RDN with nutrition screen related to diet education for diabetes. Patient admitted for right leg wound I&D and wound vac application, post 4 days. Patient is currently on a diabetic diet. Meal intakes adequate. BMI 35.3 kg/m2. RDN visited with patient whom reported he tries to follow of diabetic diet at home. He has received diet education multiple times regarding this in [place]. Patient declined diet education at this time, however he did accept educational materials. No other nutrition interventions at this time. RDN to follow up as needed.
[2022-12-30 12:45] VITALS: BP 120/66; PULSE 90; RESP 18; TEMP 36.2; O2SAT 94
--- NOTE | 2022-12-30 14:16 | PM.DS1 ---
DS: Providers Provider Time Seen by Provider: 10:09 Date Seen: 12/30/22 Date of admission: 12/26/22 14:13 Primary care physician: Tavo Nix MD Admitting Clinician: Charles Peoples MD Consults: 12/28/22 13:12 Consult to Swing Driver [CONS] Routine Comment: Will need twice per week wound vac dressing change Reason for Consult:: Discharge Planning Needs Home Health Assessment 12/29/22 09:01 Consult to Infectious Diseases [CONS] Routine Comment: Consulting Provider: [facility] Consult priority: Routine Has provider been notified: Yes Call back required?: No Attending Physician on discharge: Charles Peoples MD Date of Discharge: 12/30/22 DS: Diagnosis Discharge Diagnosis (1) Postoperative infection: Status: Acute Problem details: - s/p right leg wound I&D and wound vac application ([facility], 12/26/22). - 12/29/22 Continue wound vac, cam boot walker, vancomycin and cefepime. PICC placed 12/27/22. Cultures are growing G+ cocci, awaiting further information. - 12/30/22 Coag neg staph from one culture. Tissue culture pending. Spoke with Dr. Shipman from [facility] over the phone. Recommendation: - Daptomycin 600 mg IV q24h (~6-8 mg/kg dosed by ABW given BMI > 30). -Check weekly CBC with diff, CMP, CK to monitor for toxicities. -Can hold home atorvastatin temporarily to minimize risk for toxicity -Will follow-up identification of anaerobic GPC. I have also asked the [place] micro lab to add on identification and susceptibilities for the coag neg Staph. Uncertain the significance of the coag neg Staph as it only grew on one culture. If necessary based on final micro results, can change the IV antibiotic as outpatient. -Would follow 6 weeks of IV antibiotics with PO antibiotic suppression since hardware will remain in place. Based on existing micro results, would recommend cefadroxil 500 mg PO BID for ~1 year. Could consider longer term suppression > 1 year, if high risk for limb loss, sinus tract noted, chronic infection of surgical site suspected, or if risks outweigh benefits of stopping. Can consider stopping PO antibiotic suppression if hardware is ultimately removed. (2) Status post ORIF of fracture of ankle: Status: Acute Problem details: Right ankle open reduction internal fixation (Dr. Peoples, 11/05/2022) (3) Diabetes: Status: Chronic Problem details: - last hemoglobin A1c was 5.9%. He has had low blood sugars as an outpatient, recently as low as 50. For that reason glipizide is on hold and he is on Levemir 35 units twice a day instead of Lantus 70 units nightly, which he takes at home. Also on ISS ACHS. - 12/27/22 BG 130-170s. Will accept a higher inpatient goal for BG to avoid hypoglycemia. No change to current regimen. - 12/28/22 BG 110s-200s. Restart usual meds upon homegoing with slight decrease in Lantus to help prevent lows. (4) Mixed hyperlipidemia: Status: Chronic Problem details: - Continue outpatient regimen. (5) Hypertension associated with diabetes: Status: Chronic Problem details: - fairly well controlled. Continue outpatient regimen. (6) Sleep apnea: Status: Suspected Problem details: Clinically suspected. Recommend outpatient sleep study. DS: Summary Hospital Course Hospital Course: This is a 77-year-old male with history of diabetes and hypertension who fell on October 31 and had an inversion injury to his right ankle. He was found to have a distal fibular fracture with widened ankle mortise and went to the OR on November 05 for ORIF. He had an uncomplicated recovery until early December when he started having erythema over the area of surgical incision on his ankle. He was started on Keflex but over the subsequent week had not gotten any better. He was taken to the OR on 12/26/2012 for I&D. There is hardware that it was left in place but otherwise no deep infection to the ankle. The joint was not involved. He is not having significant pain. He was admitted to the hospital postoperatively for IV antibiotics which included cefepime and vancomycin. He has a wound VAC in place and is in a Cam boot walker. He has done well with ambulation and has remained afebrile. He was here for IV antibiotics while we awaited wound cultures. Today I had a discussion with Dr. Shipman from Infectious Disease as fluid culture from the wound had come back with coag-negative staph and the tissue culture is still pending. 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 Other recommendations are as above. He is discharged home today in stable condition and I have set him up for wound VAC changes in the clinic along with daptomycin daily and labs weekly through the infusion center. Time Spent with Patient Time attestation: Total time spent providing and/or coordinating discharge services: Exam Narrative: Exam Narrative: General: No acute distress. Awake, alert, oriented. No pallor. No jaundice. Sitting up in the chair. Oropharynx: Clear. Mucous membranes moist. Cardiovascular: Regular rate and rhythm. No murmurs, gallops, or rubs. Respiratory: Clear to auscultation bilaterally. No wheezes or crackles. Extremities: Right upper arm PICC site has resolving ecchymosis, no rubor or calor. Nontender with palpation. No induration or purulence. No pedal edema on the left lower extremity. Wound vac and tall Cam boot walker on the right lower leg. Const: Vital Signs, click to edit/add: Vital Signs - 24 hr 12/29/22 15:30 12/29/22 19:00 12/29/22 23:00 Temperature 97.4 F L 99.0 F 97.6 F Pulse Rate [Pulse Oximeter] 86 83 85 Respiratory Rate 18 20 18 Blood Pressure [Le ft Arm] 120/76 132/72 144/74 H Pulse Oximetry 94 95 96 Oxygen Delivery Me thod Room Air Room Air Room Air 12/30/22 03:00 12/30/22 08:37 12/30/22 12:45 Temperature 97.8 F 97.3 F L 97.2 F L Pulse Rate [Pulse Oximeter] 74 88 90 Respiratory Rate 18 18 18 Blood Pressure [Le ft Arm] 140/62 H 132/67 120/66 Pulse Oximetry 94 94 94 Oxygen Delivery Me thod Room Air Room Air Room Air DS: Data Data Completed and Pending Completed studies during hospitalization: Ordering Physician: Ania Mckay M.D. Date of Service: 12/27/22 Procedure(s): XR chest PICC placement conf Accession Number(s): [id number] cc: Tavo Nix M.D.; Ania Mckay M.D.~ For Patients: As a result of the Cures Act, medical imaging exams and procedure reports are released immediately into your electronic medical record. You may view this report before your referring provider. If you have questions, please contact your health care provider. INDICATION: PICC placement. IMPRESSION: One view. Tip of the right-sided PICC catheter mid SVC at the hilum. Dictated by Darrick Cartagena MD @ 12/27/2022 1:10:49 PM (Electronically Signed) Ordering Physician: Ania Mckya M.D. Date of Service: 12/27/22 Procedure(s): US PICC placement w img Accession Number(s): [id number] cc: Tavo Nix M.D.; Ania Mckay M.D.~ For Patients: As a result of the Cures Act, medical imaging exams and procedure reports are released immediately into your electronic medical record. You may view this report before your referring provider. If you have questions, please contact your health care provider. Indication: PICC placement Technique: Grayscale images of the right basilic vein. IMPRESSION: Sonographic guidance for right arm PICC line placement. Dictated by Román Bernstein MD @ 12/28/2022 11:08:45 AM (Electronically Signed) Labs on day of discharge: Labs from last 24 hours 12/30/22 08:06 Stl C. diff Tox B Gene Negative Stl C. diff [id number] Presumptive Negative Preliminary micro results at discharge 12/26/22 14:41 Aerobic Culture - Preliminary Ankle Right Anaerobic Culture - Preliminary 12/26/22 14:39 Aerobic Culture - Preliminary Ankle Right Culture in Progress Anaerobic Culture - Preliminary 12/26/22 12:19 Aerobic Culture - Preliminary Ankle Right Culture in Progress Anaerobic Culture - Preliminary Discharge Plan Discharge Disposition: Home, Self-Care Date of Admission: 12/26/22 14:13 Attending Provider on Discharge: Ania Mckay Primary Care Provider: Tavo Nix Condition: Improved Anticipated Discharge Date/Time: 12/30/22 16:00 Discharge Medications: Continued (DME) pen needle, diabetic [BD Ida 2nd Gen Pen Needle] 32 gauge x 5/32 needle See Rx Instructions .ROUTE .MEDSUPPLY Qty: 1200 Patient Comments: [NO ORIGINAL SIG] Rx Instructions: As directed pioglitazone 30 mg tablet 30 mg PO DAILY glipizide 10 mg tablet extended release 24hr 10 mg PO DAILY (DME) Accu-Chek SmartView Test Strip Strip See Rx Instructions .ROUTE BID Qty: 10 Rx Instructions: As directed amlodipine 10 mg tablet 10 mg PO DAILY lisinopril-hydrochlorothiazide 20-25 mg tablet 1 tab PO DAILY metformin 500 mg tablet extended release 24 hr 2,000 mg PO QPM acetaminophen 500 mg capsule 1,000 mg PO Q6H PRN (Reason: pain) Qty: 60 0RF cholecalciferol (vitamin D3) 25 mcg (1,000 unit) tablet 25 mcg PO DAILY Changed insulin glargine [Lantus Solostar U-100 Insulin] 100 unit/mL (3 mL) insulin pen 65 unit subcut HS Qty: 15 0RF Held atorvastatin 40 mg tablet 40 mg PO DAILY Hold Instructions: Resume on 02/06/23. Discontinued cephalexin 500 mg capsule 500 mg PO QID 10 Days Qty: 40 0RF Discharge Orders: Discharge Order (Routine); Ordered 12/30/22 Ordered By: Ania Mckay Patient Education: Incision and Drainage (DC) Additional Instructions: - You need to come to the [facility] daily at 1:30 pm for IV Antibiotic Infusion - Twice weekly wound vac changes at Outpatient ortho clinic in [place]. They will call you with appointment times ([phone]) - Outpatient sleep apnea screen through [facility] - send results to PCP. Activity Level: No Restrictions Discharge Diet: Diabetic Follow Up Appointments: Charles Peoples MD [Staff Physician] - None () Tavo Nix MD [Primary Care Provider] - (1 week) Forms: Work/School Release
--- NOTE | 2022-12-30 15:32 | PC.SOCIAL ---
Discharge plan: Met with pt and in room regarding d/c plan. Option for home care for home IV antibiotics was offered. PT and are declining this option as they prefer to come into [facility] daily for the IV infusion. Pt and also plan to go into [facility] office for the wound vac changes. Pt plans to do both the wound care and IV antibiotics as out patient follow up and not home care. Pt and are aware of how to contact oncology social worker if there are any social media campaign manager needs.
[2022-12-30] MEDS: DAPTOmycin 50 MG/ML inj 600 MG IVP (15:41)
--- NOTE | 2022-12-30 16:13 | PC.NURSE ---
Daptomycin given IVP, PICC flushes well. Wound vac in place and working correctly. Reviewed discharge instructions with pt and his who verbalized understanding. Pt was discharged to home in the care of his via wheelchair. He is expected to return tomorrow for additional antibiotic therapy.
== END 2022-12-30 23:55 | disposition home or self-care (01) | DRG 858 ==
LOC: MEDSURG 15:02
PROVIDERS: Family Medicine; Admitting Provider Orthopaedic Surgery; PCP Family Medicine; Visit Provider Orthopaedic Surgery
PROC: 0JBN0ZZ Excision of Right Lower Leg Subcutaneous Tissue and Fascia, Open Approach (ICD-10-PCS; principal; 2022-12-26 12:00)
DX: T81.41XA Infection following a procedure, superficial incisional surgical site, initial encounter (principal); E11.59 Type 2 diabetes mellitus with other circulatory complications; I15.2 Hypertension secondary to endocrine disorders; Z79.84 Long term (current) use of oral hypoglycemic drugs; E11.9 Type 2 diabetes mellitus without complications; Z79.4 Long term (current) use of insulin; E78.2 Mixed hyperlipidemia; G47.33 Obstructive sleep apnea (adult) (pediatric); B95.7 Other staphylococcus as the cause of diseases classified elsewhere
CPT/HCPCS: 01470; 36415; 36573; 80048; 82962; 85025; 86140; 87070; 87075; 87186; 87205; 87493; 97165; 97535; 99100; A9270; C1751; J0690; J0692; J0878; J1100; J2405; J2704; J3370; J7050; J7120

== ENCOUNTER 2023-01-12 07:53 | Outpatient (CLI) | payer MEDICARE, OTHER, SELFPAY | END 2023-01-12 07:54 | disposition home or self-care (01) | LOC: WOUND 07:54 | PROVIDERS: PCP Family Medicine; Visit Provider Nurse Practitioner Family | DX: T81.31XA Disruption of external operation (surgical) wound, not elsewhere classified, initial encounter (principal); E11.628 Type 2 diabetes mellitus with other skin complications; Z87.81 Personal history of (healed) traumatic fracture; Z98.890 Other specified postprocedural states; Z79.4 Long term (current) use of insulin; Z79.84 Long term (current) use of oral hypoglycemic drugs | CPT/HCPCS: 11042; 97605; 99213 ==

== ENCOUNTER 2023-01-14 11:10 | Outpatient (CLI) | payer MEDICARE, OTHER, SELFPAY | END 2023-01-14 11:11 | disposition home or self-care (01) | LOC: WOUND 11:10 | PROVIDERS: PCP Family Medicine; Visit Provider Nurse Practitioner Family | DX: T81.31XA Disruption of external operation (surgical) wound, not elsewhere classified, initial encounter (principal); E11.628 Type 2 diabetes mellitus with other skin complications; Z79.4 Long term (current) use of insulin | CPT/HCPCS: 97605 ==

== ENCOUNTER 2023-01-16 15:09 | Outpatient (CLI) | payer MEDICARE, OTHER, SELFPAY | END 2023-01-16 15:10 | disposition home or self-care (01) | LOC: WOUND 15:09 | PROVIDERS: PCP Family Medicine; Visit Provider Nurse Practitioner Family | DX: T81.31XA Disruption of external operation (surgical) wound, not elsewhere classified, initial encounter (principal) | CPT/HCPCS: 97605 ==

== ENCOUNTER 2023-01-19 13:15 | Outpatient (CLI) | payer MEDICARE, OTHER, SELFPAY | END 2023-01-19 13:16 | disposition home or self-care (01) | LOC: WOUND 13:15 | PROVIDERS: PCP Family Medicine; Visit Provider Nurse Practitioner Family | DX: T81.31XA Disruption of external operation (surgical) wound, not elsewhere classified, initial encounter (principal); E11.628 Type 2 diabetes mellitus with other skin complications; Z79.4 Long term (current) use of insulin; Z79.84 Long term (current) use of oral hypoglycemic drugs | CPT/HCPCS: 11042; 97605 ==

== ENCOUNTER 2023-01-26 13:20 | Outpatient (CLI) | payer MEDICARE, OTHER, SELFPAY | END 2023-01-26 13:21 | disposition home or self-care (01) | LOC: WOUND 13:20 | PROVIDERS: PCP Family Medicine; Visit Provider Family Medicine | DX: T81.31XA Disruption of external operation (surgical) wound, not elsewhere classified, initial encounter (principal); E11.628 Type 2 diabetes mellitus with other skin complications; Z79.4 Long term (current) use of insulin; Z79.84 Long term (current) use of oral hypoglycemic drugs | CPT/HCPCS: 11042 ==

== ENCOUNTER 2023-02-02 13:05 | Outpatient (CLI) | payer MEDICARE, OTHER, SELFPAY | END 2023-02-02 13:06 | disposition home or self-care (01) | LOC: WOUND 13:06 | PROVIDERS: PCP Family Medicine; Visit Provider Nurse Practitioner Family | DX: T81.31XA Disruption of external operation (surgical) wound, not elsewhere classified, initial encounter (principal); E11.628 Type 2 diabetes mellitus with other skin complications; Z79.4 Long term (current) use of insulin; Z79.84 Long term (current) use of oral hypoglycemic drugs | CPT/HCPCS: 11042 ==

== ENCOUNTER 2023-02-04 13:00 | Outpatient (RCR) | payer MEDICARE, OTHER, SELFPAY ==
[2022-12-31] MEDS: DAPTOmycin 50 MG/ML inj 600 MG IVP (12:10)
[2022-12-31] MEDS: SODIUM CHLORIDE 0.9 % (FLUSH) 10 ML SYRINGE IVF (12:15)
[2022-12-31 12:42] VITALS: BP 142/75; PULSE 91; RESP 16; TEMP 36.9; O2SAT 97
--- NOTE | 2022-12-31 12:45 | PC.NURSE ---
Patient called med surg stating that his wound vac tubing broke. Patient arrived with wound vac in bag. Tubing was still intact but the round port gamble had fallen off of and the wound was covered by the Tegaderm. Unable to retrieve a new port gamble wafer and tubing as the wound vac is a home wound vac. Wound was irrigated with saline solution. No signs of increased infection. Sterilized the wafer and reapplied dressing. Wound vac held suction and was monitored for about an hour to make sure suction remained. Applied melvin wrap around wound vac. Boot replaced and encouraged patient to wear boot when asleep so it does not get dislodged. Has follow up with ortho tomorrow, will be seen in the infusion center tomorrow for antibiotic. Daptomycin was administered today as well. Patient and had no further questions and left via ambulatory.
[2023-01-01 13:40] VITALS: BP 129/81; PULSE 86; RESP 16; TEMP 35.8; O2SAT 98
[2023-01-01] MEDS: DAPTOmycin 50 MG/ML inj 600 MG IVP (13:52)
[2023-01-01] MEDS: SODIUM CHLORIDE 0.9 % (FLUSH) 10 ML SYRINGE IVF (13:52)
[2023-01-02 13:50] VITALS: BP 130/80; PULSE 78; RESP 16; TEMP 36.2; O2SAT 92
[2023-01-02] MEDS: DAPTOmycin 50 MG/ML inj 600 MG IVP (14:01)
[2023-01-02] MEDS: SODIUM CHLORIDE 0.9 % (FLUSH) 10 ML SYRINGE IVF (14:02)
[2023-01-02 14:24] LABS: Basophils Absolute Auto 0.04 K/uL (0.00-0.30); Basophils Percent Auto 0.7 % (0.0-3.0); Eosinophils Absolute Auto 0.09 K/uL (0.00-0.50); Eosinophils Percent Auto 1.5 % (0.0-7.0); Hematocrit 38.9 % (37.0-53.0); Hemoglobin* 12.7 gm/dL (13.5-17.5); Immature Granulocytes Abs Auto 0.03 K/uL (0.00-0.30); Immature Granulocytes Pct Auto 0.5 %; Lymphocytes Percent Auto 24.4 % (20-44); Mean Corpuscular HGB Conc 33 gm/dL (32-36); Mean Corpuscular Hemoglobin 29 pg (26-34); Mean Corpuscular Volume 88 fL (80-100); Monocytes Percent Auto 9.3 % (0.0-11.0); Neutrophils Absolute Auto 3.92 K/uL (1.7-7.0); Neutrophils Percent Auto 63.6 % (42.0-72.0); Platelet Count* 169 K/uL (140-440); RDW Coefficient of Variation % 14.1 % (11.5-15.5); Red Blood Count 4.44 m/uL (4.30-5.90); White Blood Count* 6.15 K/uL (4.50-11.00)
[2023-01-02 14:40] LABS: Slide Review Reflex No
[2023-01-02 14:43] LABS: Albumin* 4.2 g/dL (3.3-5.0); Chloride* 106 mmol/L (96-114); Sodium* 141 mmol/L (135-149)
[2023-01-02 14:44] LABS: Potassium* 3.8 mmol/L (3.6-5.1)
[2023-01-02 14:46] LABS: Alanine Aminotransferase* 30 U/L (4-50); Alkaline Phosphatase* 65 U/L (40-150); Anion Gap 10 mEq/L (7-15); Aspartate Amino Transferase* 36 U/L (12-35); Blood Urea Nitrogen* 26 mg/dL (7-30); Carbon Dioxide* 25 mmol/L (20-32); Creatine Kinase* 57 U/L (54-186); Creatinine* 0.7 mg/dL (0.5-1.5); Estimated Glomerular Filt Rate 94 ml/min; Glucose* 149 mg/dL (60-115); Total Protein* 7.4 g/dL (6.0-8.3)
[2023-01-02 14:47] LABS: Calcium* 9.1 mg/dL (8.4-10.6)
[2023-01-03] MEDS: SODIUM CHLORIDE 0.9 % (FLUSH) 10 ML SYRINGE IVF (13:29)
[2023-01-03] MEDS: DAPTOmycin 50 MG/ML inj 600 MG IVP (13:29)
[2023-01-03 13:30] VITALS: BP 116/70; PULSE 75; RESP 16; TEMP 35.5; O2SAT 95
--- NOTE | 2023-01-03 14:02 | ONC.NURNOTE ---
Picc line difficult to flush. only taking 3cc. redid the dressing and flushed very easily and well.
[2023-01-04] MEDS: DAPTOmycin 50 MG/ML inj 600 MG IVP (11:54)
[2023-01-04] MEDS: SODIUM CHLORIDE 0.9 % (FLUSH) 10 ML SYRINGE IVF (11:54)
[2023-01-04 12:06] VITALS: BP 160/80; PULSE 80; RESP 16; TEMP 36.1; O2SAT 93
[2023-01-05 13:20] VITALS: BP 122/62; PULSE 90; RESP 16; TEMP 36.1; O2SAT 95
[2023-01-05] MEDS: SODIUM CHLORIDE 0.9 % (FLUSH) 10 ML SYRINGE IVF (13:35)
[2023-01-05] MEDS: DAPTOmycin 50 MG/ML inj 600 MG IVP (13:35)
--- NOTE | 2023-01-05 16:47 | AT.DPN ---
dressing change 01/04
[2023-01-06 12:30] VITALS: BP 124/68; PULSE 84; RESP 16; TEMP 36.1; O2SAT 93
[2023-01-06] MEDS: DAPTOmycin 50 MG/ML inj 600 MG IVP (12:59)
[2023-01-06] MEDS: SODIUM CHLORIDE 0.9 % (FLUSH) 10 ML SYRINGE IVF (12:59)
[2023-01-07 13:03] VITALS: BP 109/76; PULSE 92; RESP 16; TEMP 35.8; O2SAT 95
[2023-01-07] MEDS: DAPTOmycin 50 MG/ML inj 600 MG IVP (13:23)
[2023-01-07] MEDS: SODIUM CHLORIDE 0.9 % (FLUSH) 10 ML SYRINGE IVF (13:24)
[2023-01-08 13:19] VITALS: BP 112/72; PULSE 82; RESP 16; TEMP 36.4; O2SAT 94
[2023-01-08] MEDS: DAPTOmycin 50 MG/ML inj 600 MG IVP (13:25)
[2023-01-08] MEDS: SODIUM CHLORIDE 0.9 % (FLUSH) 10 ML SYRINGE IVF (13:29)
[2023-01-09 13:15] VITALS: BP 123/70; PULSE 69; RESP 18; TEMP 36.2; O2SAT 96
[2023-01-09] MEDS: DAPTOmycin 50 MG/ML inj 600 MG IVP (13:42)
[2023-01-09] MEDS: SODIUM CHLORIDE 0.9 % (FLUSH) 10 ML SYRINGE IVF (13:43)
[2023-01-10 10:55] VITALS: BP 122/79; PULSE 95; RESP 18; TEMP 36.4; O2SAT 97
[2023-01-10] MEDS: DAPTOmycin 50 MG/ML inj 600 MG IVP (10:57)
[2023-01-10] MEDS: SODIUM CHLORIDE 0.9 % (FLUSH) 10 ML SYRINGE IVF (10:57)
[2023-01-11 10:44] VITALS: BP 111/60; PULSE 88; RESP 16; TEMP 36.4; O2SAT 99
[2023-01-11] MEDS: SODIUM CHLORIDE 0.9 % (FLUSH) 10 ML SYRINGE IVF (10:46)
[2023-01-11] MEDS: DAPTOmycin 50 MG/ML inj 600 MG IVP (10:46)
[2023-01-12] MEDS: DAPTOmycin 50 MG/ML inj 600 MG IVP (10:17)
[2023-01-12] MEDS: SODIUM CHLORIDE 0.9 % (FLUSH) 10 ML SYRINGE IVF (10:17)
[2023-01-12 10:18] VITALS: BP 129/83; PULSE 79; RESP 16; TEMP 36.1; O2SAT 95
[2023-01-13 13:00] VITALS: BP 115/59; PULSE 85; RESP 20; TEMP 36.4; O2SAT 95
[2023-01-13] MEDS: DAPTOmycin 50 MG/ML inj 600 MG IVP (13:12)
[2023-01-13] MEDS: SODIUM CHLORIDE 0.9 % (FLUSH) 10 ML SYRINGE IVF (13:13)
[2023-01-14] MEDS: DAPTOmycin 50 MG/ML inj 600 MG IVP (12:33)
[2023-01-14] MEDS: SODIUM CHLORIDE 0.9 % (FLUSH) 10 ML SYRINGE IVF (12:33)
[2023-01-15] MEDS: SODIUM CHLORIDE 0.9 % (FLUSH) 10 ML SYRINGE IVF (12:39)
[2023-01-15] MEDS: DAPTOmycin 50 MG/ML inj 600 MG IVP (12:39)
[2023-01-16 14:15] VITALS: BP 127/70; PULSE 91; RESP 16; TEMP 36.1; O2SAT 92
[2023-01-16] MEDS: SODIUM CHLORIDE 0.9 % (FLUSH) 10 ML SYRINGE IVF (14:55)
[2023-01-16] MEDS: DAPTOmycin 50 MG/ML inj 600 MG IVP (14:55)
[2023-01-16 15:18] LABS: Basophils Absolute Auto 0.03 K/uL (0.00-0.30); Basophils Percent Auto 0.6 % (0.0-3.0); Eosinophils Absolute Auto 0.12 K/uL (0.00-0.50); Eosinophils Percent Auto 2.5 % (0.0-7.0); Hematocrit 38.6 % (37.0-53.0); Hemoglobin* 12.7 gm/dL (13.5-17.5); Immature Granulocytes Abs Auto 0.03 K/uL (0.00-0.30); Immature Granulocytes Pct Auto 0.6 %; Lymphocytes Absolute Auto 1.39 K/uL (0.90-2.90); Lymphocytes Percent Auto 28.5 % (20-44); Mean Corpuscular HGB Conc 33 gm/dL (32-36); Mean Corpuscular Hemoglobin 29 pg (26-34); Mean Corpuscular Volume 87 fL (80-100); Neutrophils Absolute Auto 2.87 K/uL (1.7-7.0); Neutrophils Percent Auto 58.8 % (42.0-72.0); Platelet Count* 151 K/uL (140-440); RDW Coefficient of Variation % 14.1 % (11.5-15.5); Red Blood Count 4.45 m/uL (4.30-5.90); White Blood Count* 4.88 K/uL (4.50-11.00)
[2023-01-16 15:21] LABS: Slide Review Reflex No
[2023-01-16 15:37] LABS: Albumin* 4.1 g/dL (3.3-5.0); Chloride* 98 mmol/L (96-114); Potassium* 3.4 mmol/L (3.6-5.1); Sodium* 139 mmol/L (135-149)
[2023-01-16 15:39] LABS: Anion Gap 16 mEq/L (7-15); Bilirubin Total* 0.8 mg/dL (0.1-1.5); Carbon Dioxide* 25 mmol/L (20-32); Creatinine* 0.9 mg/dL (0.5-1.5); Estimated Glomerular Filt Rate 87 ml/min
[2023-01-16 15:40] LABS: Alanine Aminotransferase* 28 U/L (4-50); Alkaline Phosphatase* 70 U/L (40-150); Aspartate Amino Transferase* 29 U/L (12-35); Blood Urea Nitrogen* 30 mg/dL (7-30); Creatine Kinase* 70 U/L (54-186); Glucose* 215 mg/dL (60-115); Total Protein* 7.2 g/dL (6.0-8.3)
[2023-01-17 11:10] VITALS: BP 128/61; PULSE 87; RESP 18; TEMP 36.5; O2SAT 93
[2023-01-17] MEDS: DAPTOmycin 50 MG/ML inj 600 MG IVP (11:13)
[2023-01-17] MEDS: SODIUM CHLORIDE 0.9 % (FLUSH) 10 ML SYRINGE IVF (11:17)
--- NOTE | 2023-01-17 11:20 | PC.NURSE ---
patient vitally stable. PICC line intact and flushed well. Patient tolerating IV push well. Patient left floor by foot at 1119
[2023-01-18] MEDS: SODIUM CHLORIDE 0.9 % (FLUSH) 10 ML SYRINGE IVF ×2 (10:44→10:48)
[2023-01-18] MEDS: DAPTOmycin 50 MG/ML inj 600 MG IVP (10:44)
--- NOTE | 2023-01-18 10:51 | PC.NURSE ---
Out Patient ABX via R PICC: The patients name and birthday was verified.. IV Push ABX was verified as well... No hx of reactions to ABX. I pushed the ABX over 2 minutes per orders. The patient is in good condition and was on his way to watch the [employer] game. Diamante GARCIA RN
[2023-01-19 12:37] VITALS: BP 142/80; PULSE 92; RESP 17; TEMP 36.7; O2SAT 92
[2023-01-19] MEDS: SODIUM CHLORIDE 0.9 % (FLUSH) 10 ML SYRINGE IVF (12:54)
[2023-01-19] MEDS: DAPTOmycin 50 MG/ML inj 600 MG IVP (12:54)
[2023-01-20 12:54] VITALS: BP 122/75; PULSE 86; RESP 18; TEMP 36.4; O2SAT 92
[2023-01-20] MEDS: SODIUM CHLORIDE 0.9 % (FLUSH) 10 ML SYRINGE IVF (13:05)
[2023-01-20] MEDS: DAPTOmycin 50 MG/ML inj 600 MG IVP (13:05)
[2023-01-21 12:59] VITALS: BP 123/77; PULSE 98; RESP 18; TEMP 36.3; O2SAT 92
[2023-01-21] MEDS: DAPTOmycin 50 MG/ML inj 600 MG IVP (13:10)
[2023-01-21] MEDS: SODIUM CHLORIDE 0.9 % (FLUSH) 10 ML SYRINGE IVF (13:10)
[2023-01-22 13:02] VITALS: BP 149/68; PULSE 96; RESP 18; TEMP 37.1; O2SAT 94
[2023-01-22] MEDS: DAPTOmycin 50 MG/ML inj 600 MG IVP (13:17)
[2023-01-22] MEDS: SODIUM CHLORIDE 0.9 % (FLUSH) 10 ML SYRINGE IVF (13:17)
[2023-01-23 13:00] VITALS: BP 129/75; PULSE 96; RESP 16; TEMP 36.5; O2SAT 92
[2023-01-23] MEDS: DAPTOmycin 50 MG/ML inj 600 MG IVP (13:14)
[2023-01-23] MEDS: SODIUM CHLORIDE 0.9 % (FLUSH) 10 ML SYRINGE IVF (13:14)
[2023-01-23 13:27] LABS: Basophils Absolute Auto 0.05 K/uL (0.00-0.30); Basophils Percent Auto 0.7 % (0.0-3.0); Eosinophils Absolute Auto 0.21 K/uL (0.00-0.50); Eosinophils Percent Auto 3.1 % (0.0-7.0); Hemoglobin* 11.8 gm/dL (13.5-17.5); Immature Granulocytes Abs Auto 0.02 K/uL (0.00-0.30); Immature Granulocytes Pct Auto 0.3 %; Lymphocytes Percent Auto 17.8 % (20-44); Mean Corpuscular HGB Conc 34 gm/dL (32-36); Mean Corpuscular Hemoglobin 28 pg (26-34); Mean Corpuscular Volume 84 fL (80-100); Monocytes Percent Auto 8.8 % (0.0-11.0); Neutrophils Absolute Auto 4.63 K/uL (1.7-7.0); Neutrophils Percent Auto 69.3 % (42.0-72.0); Platelet Count* 211 K/uL (140-440); RDW Coefficient of Variation % 14.2 % (11.5-15.5); Red Blood Count 4.16 m/uL (4.30-5.90); White Blood Count* 6.69 K/uL (4.50-11.00)
[2023-01-23 13:40] LABS: Slide Review Reflex No
[2023-01-23 13:50] LABS: Albumin* 3.8 g/dL (3.3-5.0)
[2023-01-23 13:51] LABS: Chloride* 100 mmol/L (96-114); Potassium* 3.6 mmol/L (3.6-5.1); Sodium* 136 mmol/L (135-149)
[2023-01-23 13:53] LABS: Anion Gap 10 mEq/L (7-15); Aspartate Amino Transferase* 34 U/L (12-35); Carbon Dioxide* 26 mmol/L (20-32); Creatinine* 0.8 mg/dL (0.5-1.5); Estimated Glomerular Filt Rate 91 ml/min
[2023-01-23 13:54] LABS: Alanine Aminotransferase* 25 U/L (4-50); Alkaline Phosphatase* 74 U/L (40-150); Blood Urea Nitrogen* 17 mg/dL (7-30); Creatine Kinase* 56 U/L (54-186); Glucose* 175 mg/dL (60-115); Total Protein* 7.5 g/dL (6.0-8.3)
[2023-01-24] MEDS: DAPTOmycin 50 MG/ML inj 600 MG IVP (12:07)
[2023-01-24] MEDS: SODIUM CHLORIDE 0.9 % (FLUSH) 10 ML SYRINGE IVF ×2 (12:08→12:21)
[2023-01-24 12:21] VITALS: BP 118/60; PULSE 91; RESP 16; TEMP 36.6; O2SAT 91
--- NOTE | 2023-01-24 12:24 | PC.NURSE ---
Patient arrived to Med/surg floor for IV push antibiotic. present with patient. Pt states that he generally feels well. Boot present to right lower extremity. VSS. PICC in right upper arm had positive blood return and flushed without difficulty. IV push antibiotic given without complication.
[2023-01-25] MEDS: DAPTOmycin 50 MG/ML inj 600 MG IVP (11:54)
[2023-01-25] MEDS: SODIUM CHLORIDE 0.9 % (FLUSH) 10 ML SYRINGE IVF ×2 (11:55→11:56)
[2023-01-25 11:57] VITALS: BP 110/59; PULSE 98; RESP 18; TEMP 36.8; O2SAT 91
--- NOTE | 2023-01-25 11:59 | PC.NURSE ---
VS WNL, PICC dressing C,D,&I, flushes well. Abx given IVP without difficulty, pt tolerated well.
[2023-01-26 13:00] VITALS: BP 129/75; PULSE 89; RESP 16; TEMP 36.6; O2SAT 97
[2023-01-26] MEDS: DAPTOmycin 50 MG/ML inj 600 MG IVP (13:12)
[2023-01-26] MEDS: SODIUM CHLORIDE 0.9 % (FLUSH) 10 ML SYRINGE IVF (13:12)
[2023-01-27] MEDS: DAPTOmycin 50 MG/ML inj 600 MG IVP (12:36)
[2023-01-27] MEDS: SODIUM CHLORIDE 0.9 % (FLUSH) 10 ML SYRINGE IVF (12:36)
[2023-01-27 13:02] VITALS: BP 97/62; PULSE 96; RESP 18; TEMP 36.7; O2SAT 92
[2023-01-28 13:01] VITALS: BP 123/68; PULSE 99; RESP 16; TEMP 36.6; O2SAT 95
[2023-01-28] MEDS: DAPTOmycin 50 MG/ML inj 600 MG IVP (13:11)
[2023-01-28] MEDS: SODIUM CHLORIDE 0.9 % (FLUSH) 10 ML SYRINGE IVF (13:11)
[2023-01-29] MEDS: SODIUM CHLORIDE 0.9 % (FLUSH) 10 ML SYRINGE IVF ×2 (12:48→12:53)
[2023-01-29] MEDS: DAPTOmycin 50 MG/ML inj 600 MG IVP (12:48)
[2023-01-29 12:54] VITALS: BP 129/80; PULSE 97; RESP 16; O2SAT 93
[2023-01-30] MEDS: SODIUM CHLORIDE 0.9 % (FLUSH) 10 ML SYRINGE IVF (12:35)
[2023-01-30] MEDS: DAPTOmycin 50 MG/ML inj 600 MG IVP (12:36)
[2023-01-30 12:40] LABS: Sodium* 135 mmol/L (135-149)
[2023-01-30 12:43] LABS: Basophils Absolute Auto 0.04 K/uL (0.00-0.30); Basophils Percent Auto 0.5 % (0.0-3.0); Eosinophils Absolute Auto 0.36 K/uL (0.00-0.50); Eosinophils Percent Auto 4.3 % (0.0-7.0); Hematocrit 35.6 % (37.0-53.0); Hemoglobin* 11.5 gm/dL (13.5-17.5); Immature Granulocytes Abs Auto 0.06 K/uL (0.00-0.30); Immature Granulocytes Pct Auto 0.7 %; Lymphocytes Percent Auto 15.7 % (20-44); Mean Corpuscular HGB Conc 32 gm/dL (32-36); Mean Corpuscular Hemoglobin 27 pg (26-34); Mean Corpuscular Volume 85 fL (80-100); Monocytes Percent Auto 8.2 % (0.0-11.0); Neutrophils Absolute Auto 5.97 K/uL (1.7-7.0); Neutrophils Percent Auto 70.6 % (42.0-72.0); Platelet Count* 333 K/uL (140-440); RDW Coefficient of Variation % 14.3 % (11.5-15.5); White Blood Count* 8.45 K/uL (4.50-11.00)
[2023-01-30 13:05] LABS: Slide Review Reflex No
[2023-01-30 13:18] LABS: Albumin* 3.5 g/dL (3.3-5.0); Chloride* 97 mmol/L (96-114)
[2023-01-30 13:21] LABS: Alkaline Phosphatase* 78 U/L (40-150); Anion Gap 11 mEq/L (7-15); Aspartate Amino Transferase* 29 U/L (12-35); Bilirubin Total* 0.7 mg/dL (0.1-1.5); Blood Urea Nitrogen* 33 mg/dL (7-30); Carbon Dioxide* 27 mmol/L (20-32); Creatinine* 0.9 mg/dL (0.5-1.5); Estimated Glomerular Filt Rate 87 ml/min; Glucose* 180 mg/dL (60-115); Total Protein* 7.5 g/dL (6.0-8.3)
[2023-01-30 13:22] LABS: Alanine Aminotransferase* 31 U/L (4-50); Creatine Kinase* 64 U/L (54-186)
[2023-01-30 13:32] VITALS: TEMP 36.1
[2023-01-30 14:21] LABS: Potassium* 3.4 mmol/L (3.6-5.1)
[2023-01-31 12:30] VITALS: BP 125/69; PULSE 69; RESP 20; TEMP 36.6; O2SAT 92
[2023-01-31] MEDS: DAPTOmycin 50 MG/ML inj 600 MG IVP (12:40)
[2023-01-31] MEDS: SODIUM CHLORIDE 0.9 % (FLUSH) 10 ML SYRINGE IVF (12:40)
[2023-02-01 10:30] VITALS: BP 113/55; PULSE 100; RESP 18; TEMP 36.1; O2SAT 100
[2023-02-01] MEDS: SODIUM CHLORIDE 0.9 % (FLUSH) 10 ML SYRINGE IVF (10:48)
[2023-02-01] MEDS: DAPTOmycin 50 MG/ML inj 600 MG IVP (10:49)
[2023-02-02 12:45] VITALS: BP 109/61; PULSE 84; RESP 18; TEMP 36.6; O2SAT 94
[2023-02-02] MEDS: SODIUM CHLORIDE 0.9 % (FLUSH) 10 ML SYRINGE IVF (12:58)
[2023-02-02] MEDS: DAPTOmycin 50 MG/ML inj 600 MG IVP (12:58)
[2023-02-03 12:46] VITALS: BP 114/61; PULSE 77; RESP 16; TEMP 35.7; O2SAT 89
[2023-02-03] MEDS: SODIUM CHLORIDE 0.9 % (FLUSH) 10 ML SYRINGE IVF (13:10)
[2023-02-03] MEDS: DAPTOmycin 50 MG/ML inj 600 MG IVP (13:10)
[2023-02-04] MEDS: DAPTOmycin 50 MG/ML inj 600 MG IVP (13:02)
[2023-02-04] MEDS: SODIUM CHLORIDE 0.9 % (FLUSH) 10 ML SYRINGE IVF (13:02)
[2023-02-04 13:59] VITALS: BP 118/64; PULSE 97; RESP 16; TEMP 35.9; O2SAT 92
== END 2023-06-29 23:59 | disposition home or self-care (01) ==
LOC: CCIC 13:00
PROVIDERS: PCP Family Medicine; Referring Provider Family Medicine; Visit Provider Family Medicine
DX: M86.171 Other acute osteomyelitis, right ankle and foot (principal)
CPT/HCPCS: 11042; 36415; 36589; 36592; 80053; 82550; 85025; 96374; 96376; 97605; 99211; 99213; A4221; J0878

== ENCOUNTER 2023-02-09 13:51 | Outpatient (CLI) | payer MEDICARE, OTHER, SELFPAY | END 2023-02-09 13:52 | disposition home or self-care (01) | LOC: WOUND 13:51 | PROVIDERS: PCP Family Medicine; Visit Provider Nurse Practitioner Family | DX: T81.31XA Disruption of external operation (surgical) wound, not elsewhere classified, initial encounter (principal); E11.628 Type 2 diabetes mellitus with other skin complications; Z79.4 Long term (current) use of insulin; Z79.84 Long term (current) use of oral hypoglycemic drugs | CPT/HCPCS: 11042 ==

== ENCOUNTER 2023-02-16 14:10 | Outpatient (CLI) | payer MEDICARE, OTHER, SELFPAY | END 2023-02-16 14:11 | disposition home or self-care (01) | LOC: WOUND 14:10 | PROVIDERS: PCP Family Medicine; Visit Provider Nurse Practitioner Family | DX: T81.31XA Disruption of external operation (surgical) wound, not elsewhere classified, initial encounter (principal); E11.628 Type 2 diabetes mellitus with other skin complications; Z79.4 Long term (current) use of insulin; Z79.84 Long term (current) use of oral hypoglycemic drugs | CPT/HCPCS: 11042 ==

== ENCOUNTER 2023-02-23 12:53 | Outpatient (CLI) | payer MEDICARE, OTHER, SELFPAY | END 2023-02-23 12:54 | disposition home or self-care (01) | LOC: WOUND 12:54 | PROVIDERS: PCP Family Medicine; Visit Provider Nurse Practitioner Family | DX: T81.31XA Disruption of external operation (surgical) wound, not elsewhere classified, initial encounter (principal); E11.628 Type 2 diabetes mellitus with other skin complications; Z79.4 Long term (current) use of insulin; Z79.84 Long term (current) use of oral hypoglycemic drugs | CPT/HCPCS: 97597 ==

== ENCOUNTER 2023-03-02 12:53 | Outpatient (CLI) | payer MEDICARE, OTHER, SELFPAY | END 2023-03-02 12:54 | disposition home or self-care (01) | LOC: WOUND 12:53 | PROVIDERS: PCP Family Medicine; Visit Provider Nurse Practitioner Family | DX: T81.31XA Disruption of external operation (surgical) wound, not elsewhere classified, initial encounter (principal); E11.628 Type 2 diabetes mellitus with other skin complications; Z79.4 Long term (current) use of insulin; Z79.84 Long term (current) use of oral hypoglycemic drugs | CPT/HCPCS: 11042 ==

== ENCOUNTER 2023-03-17 13:12 | Outpatient (CLI) | payer MEDICARE, OTHER, SELFPAY | END 2023-03-17 13:13 | disposition home or self-care (01) | LOC: WOUND 13:12 | PROVIDERS: PCP Family Medicine; Visit Provider Physician Assistant | DX: T81.31XA Disruption of external operation (surgical) wound, not elsewhere classified, initial encounter (principal); E11.628 Type 2 diabetes mellitus with other skin complications; Z79.4 Long term (current) use of insulin; Z79.84 Long term (current) use of oral hypoglycemic drugs | CPT/HCPCS: 97597 ==

== ENCOUNTER 2023-03-23 12:54 | Outpatient (CLI) | payer MEDICARE, OTHER, SELFPAY | END 2023-03-23 12:55 | disposition home or self-care (01) | LOC: WOUND 12:54 | PROVIDERS: PCP Family Medicine; Visit Provider Nurse Practitioner Family | DX: T81.31XA Disruption of external operation (surgical) wound, not elsewhere classified, initial encounter (principal); E11.628 Type 2 diabetes mellitus with other skin complications; Z79.4 Long term (current) use of insulin; Z79.84 Long term (current) use of oral hypoglycemic drugs | CPT/HCPCS: G0463 ==

== ENCOUNTER 2023-03-30 12:53 | Outpatient (CLI) | payer MEDICARE, OTHER, SELFPAY | END 2023-03-30 12:54 | disposition home or self-care (01) | LOC: WOUND 12:53 | PROVIDERS: PCP Family Medicine; Visit Provider Nurse Practitioner Family | DX: T81.31XA Disruption of external operation (surgical) wound, not elsewhere classified, initial encounter (principal); E11.628 Type 2 diabetes mellitus with other skin complications; Z79.4 Long term (current) use of insulin; Z79.84 Long term (current) use of oral hypoglycemic drugs | CPT/HCPCS: G0463 ==

== ENCOUNTER 2025-01-24 21:16 | Inpatient (IN) | payer MEDICARE, OTHER, SELFPAY ==
--- OUTSIDE RECORDS SUMMARY | 2024-12-22 06:45 | XMS_ITS | Encounter Summary ---
Author Organization [facility] Address [address] [place] [address] Care Team Providers Care Tool And Die Engineer Name Role Phone Elsewhere, Pcp Primary Care Provider Unavailabl e Reason for Referral * Physical Therapy (Routine) - Authorized Specialty Diagnoses / Procedures Referred By Riaz norris Referred To Contact Diagnoses Pain Hip Bilateral Procedures PT Ongoing treatment Tavo Nix II, M.D. [address] [place] [address] Phone: tel: fax: [facility] Region Referral ID Status Reason Start Date Expiration Date V isits Requested Visits Authorized [id number] Authorized 12/22/2024 03/24/2026 99 99 Reason for Visit * Appointment Request (Routine) - Closed Specialty Diagnoses / Procedures Referred By Riaz norris Referred To Contact Physical Therapy Tavo Nix II, M.D. [address] [place] [address] Phone: tel: fax: Referral ID Status Reason Start Date Expiration Date Visits Re quested Visits Authorized [id number] Closed 12/20/2024 03/22/2026 1 1 Encounter Details Date Type Department Care Team (Latest Contact Info) Description 12/22/2024 7:45 AM CDT Comprehensive Visit Department of Rehabilitation Services in [address] [phone] Tavo Nix II, M.D. [address] [place] [address] Ania Ward P.T., D.P.T. Pain Hip Bilateral (Primary Dx) Social History Tobacco Use Types Packs/Day Years Used Date Smoking Tobacco: Never Sex and Gender Information Value Date Recorded Sex Assigned at Not on file Legal Sex Male 8:35 AM NUTRITION CONSULTANT Gender Identity Not on file Sexual Orientation Not on file documented as of this encounter Consult Notes * Ania Ward P.T., D.P.T. - 12/22/2024 7:45 AM CDT Physical Therapy Outpatient Evaluation/Treatment By co-signing this note, the provider certifies the therapy being provided to this patient is reasonable and necessary for the diagnosis or treatment of this patient. SUBJECTIVE Patient's Name: Alberto Zenobia Rosenthal Referring Provider: Kenneth Bowden II* Visit Diagnosis: 1. Pain Hip Bilateral Reason for Referral: PT Eval and treat - Onset Date: 12/20/24 Payor: MEDICARE / Plan: MEDICARE A AND B / Product Type: Medicare / OptMed Visit Count: 1 PERTINENT MEDICAL / SURGICAL HISTORY: Problem List[1] Surgical History[2] Precautions Weight Bearing Status: WBAT B LE Patient presents to outpatient physical therapy for evaluation of symptoms including: Bilateral hip pain / Trochanteric Bursitis and chronic pain of bilateral shoulders Overall patient reports status remains the same but slowly seems to be getting worse and he is avoiding taking walks due to pain in his hips. History of Present Illness Patient reports with bilateral hip pain. Denies any specific injury or trauma but rather slow onset. States his shoulders also are painful however he would like to focus on his hips initially. Aggravating Factors: standing and walking Relieving Factors: rest Previous Treatments: None Prior Function/Occupational Profile: retired Family/Caregiver Present: No Patient goals:Walk longer distances without hip pain Patient Comments: Patient states he feels like walking is difficult and his hips seem very stiff and sore making long strides difficult. Precautions Weight Bearing Status: WBAT B LE Fall Risk (65 and older) Fall in the last 12 months: No Are you fearful of falling?: Yes Fall Risk Comments: h/o falls OBJECTIVE REVIEW OF SYSTEMS PHYSICAL EXAM Pain: 3/10 hips Physical Exam Orthopedic Physical Examination Spine palpation Right side palpation: Tenderness was noted at the following sites: greater trochanter Left side palpation: Tenderness was noted at the following sites: ???greater trochanter Strength exam Right lower extremity: Hip flexors (L1-3): 4-/5 (Lin scale -2) Quadriceps (L2-4): 4-/5 (Lin scale -2) Hamstrings (L5-S2): 4-/5 (Lin scale -2) Left lower extremity: Hip flexors (L1-3): 4-/5 (Lin scale -2) Quadriceps (L2-4): 4-/5 (Lin scale -2) Hamstrings (L5-S2): 4-/5 (Lin scale -2) Pelvis-Hip Examination Palpation Right side: Tenderness was noted at the following sites: greater trochanter Left side: Tenderness was noted at the following sites: greater trochanter -- Additional palpation details: Superior gluteal musculature sore with palpation bilaterally Limited lumbar spine screen: : Mod limit lumbar AROM all directions most sig limitations in sidebending and rotations Hip range of motion -- Additional range of motion detail: Stiff bilaterally with hip ROM testing Sig tightness bilaterally in hamstrings Hip girdle strength Right hip iliopsoas (L1-3): 4/5, hip aBductors (L4-S2): 4/5, hip aDductors (L2- 4): 4/5 Left hip iliopsoas (L1-3): 4/5, hip aBductors (L4-S2): 4/5, hip aDductors (L2- 4): 4/5 Right leg hp flexors (L1-3): 4-, quadriceps (L2-4): 4-, hamstrings (L5-S2): 4-, Left leg hip flexors (L1-3): 4-, quadriceps (L2-4): 4-, hamstrings (L5-S2): 4-, TREATMENT Treatment today consisted of: Therapeutic Exercise: Performed with the intent to improve strength and endurance, range of motion,flexibility, joint mobility, joint stability, and/or reduce edema/lymphedema. Therapist is present,providing one-on-one verbal and tactile cues for correct completion of exercises, facilitation of appropriate muscle activation/ recruitment and patient safety. SciFit x 10 min at level #1 monitored for sx of fatigue or pain during, adjusted foot plates for comfort Access Code: [email or web address] URL: [email or web address] Date: 12/22/2024 Prepared by: Ania Ward Exercises - Clamshell with Resistance - 1 x daily - 7 x weekly - 3 sets - 10 reps - Supine Bridge with Resistance Band - 1 x daily - 7 x weekly - 3 sets - 10 reps - Supine Hip Flexion - 1 x daily - 7 x weekly - 3 sets - 10 reps - Seated Hip Abduction with Resistance - 1 x daily - 7 x weekly - 3 sets - 10 reps - Squat with Chair Touch and Resistance Loop - 1 x daily - 7 x weekly - 3 sets - 10 reps - Seated Hamstring Stretch - 1 x daily - 7 x weekly - 3 sets - 10 reps - Hip Flexor Stretch with Chair - 1 x daily - 7 x weekly - 3 sets - 10 reps Home Exercise Program/Education: above daily Assessment & Plan Clinical Impression: Patient presents to physical therapy with signs and symptoms consistent with Bilateral hip pain andbilateral shoulder pain. Impairments: weakness and limits in ROM Functional deficits: limited tolerance to standing and walking due to pain also reports balance reduced as well Rehab Potential: Patient has Good potential to achieve established physical therapy goals within the time frame outlined below, provided active participation in the physical therapy treatment plan and home program. Comorbid Conditions: Diabetes Personal Factors: Age, Hearing impairment Clinical Presentation: Stable Examination elements: 3 Clinical Decision Making: Moderate complexity clinical decision making Discharge Therapy Needs - PT: Ongoing skilled physical therapy Functional Goals and Timeframes: PT Outpatient Goals PT Goal #1: Patient will be able to walk 20+ minutes without hip pain to return to PLOF. PT Goal #1 to be achieved by: 03/17/25 PT Goal #2: Patient will have 5/5 hip extension and abduction strength to improve gait and balance. PT Goal #2 to be achieved by: 03/17/25 PT Goal #3: Patient will be I in HEP for improved B hip ROM and strength. PT Goal #3 to be achieved by: 03/17/25 Patient was educated regarding evaluative findings, diagnosis, prognosis, potential risks and benefits of rehabilitation interventions. A collaborative effort was used to establish goals and plan of care. The patient was informed of the right to make decisions regarding care, including refusal of examination or treatment or selection of services from another provider if desired. The treatment plan may be progressed or modified based upon the patient's response to treatment. Physical Therapy Attestation Statement: Patient agrees with the plan of care and goals. Treatment Plan: Plan: Plan of care initiated PT Plan Comments: progress hip ROM / stretching exs along with strengthening exercises to improve Bhip ROM and strength for improved gait, balance and stability Start of Plan of Care: 12/24/2024 PT Next Certification Date: 03/22/25 Number of Visits:12 visits PT Duration: 90 days PT Frequency: Treatment interventions may include: Treatment/Interventions: Therapeutic exercise, Therapeutic functional activity, Neuromuscular re-education, Manual therapy, Gait training, Therapeutic modalities as needed Plan for next session: con't with LE strengthening and B hip ROM / flexibility exs Time Spent with Patient Evaluations PT Eval - Mod Complexity: 30 min Therapeutic Interventions Therapeutic Exercise (min): 30 min Time Tracking Total Timed Units (min): 30 min Total Treatment Time (min): 60 min [1] Patient Active Problem List Diagnosis Hypertension Diabetes Mellitus Type 2 (HCC) Sciatica Left Pain Lower Extremity Left [2] No past surgical history on file. documented in this encounter Plan of Treatment Upcoming Encounters Date Type Department Care Team (Late st Contact Info) Description 01/27/2025 9:00 AM NUTRITION CONSULTANT Clinical Support Department of Rehabilitation Services in [address] [phone] Tavo Nix II, M.D. [address] [place] [phone] Ania Ward P.T., D.P.T. 02/10/2025 9:45 AM NUTRITION CONSULTANT Clinical Support Department of Rehabilitation Services in [address] [phone] Tavo Nix II, M.D. [address] [place] [phone] Ania Ward P.T., D.P.T. documented as of this encounter Visit Diagnoses Diagnosis Pain Hip Bilateral- Primary documented in this encounter Care Teams Tool And Die Engineer Relationship Specialty Start Date End Date Elsewhere, Pcp PCP - General 04/04/19 documented as of this encounter
--- OUTSIDE RECORDS SUMMARY | 2024-12-22 06:45 | XMS_ITS | Encounter Summary ---
Author Organization [facility] Address [address] [place] [address] Care Team Providers Care Event Lighting Specialist Name Role Phone Elsewhere, Pcp Primary Care Provider Unavailabl e Reason for Referral * Physical Therapy (Routine) - Authorized Specialty Diagnoses / Procedures Referred By Riaz norris Referred To Contact Diagnoses Pain Hip Bilateral Procedures PT Ongoing treatment Tavo Nix II, M.D. [address] [place] [address] Phone: tel: fax: [facility] Region Referral ID Status Reason Start Date Expiration Date V isits Requested Visits Authorized [id number] Authorized 12/22/2024 03/24/2026 99 99 Reason for Visit * Appointment Request (Routine) - Closed Specialty Diagnoses / Procedures Referred By Riaz norris Referred To Contact Physical Therapy Tavo Nix II, M.D. [address] [place] [address] Phone: tel: fax: Referral ID Status Reason Start Date Expiration Date Visits Re quested Visits Authorized [id number] Closed 12/20/2024 03/22/2026 1 1 Encounter Details Date Type Department Care Team (Latest Contact Info) Description 12/22/2024 7:45 AM CDT Comprehensive Visit Department of Rehabilitation Services in [address] [phone] Tavo Nix II, M.D. [address] [place] [address] Ania Ward P.T., D.P.T. Pain Hip Bilateral (Primary Dx) Social History Tobacco Use Types Packs/Day Years Used Date Smoking Tobacco: Never Sex and Gender Information Value Date Recorded Sex Assigned at Not on file Legal Sex Male 8:35 AM CHISEL MORTISER OPERATOR Gender Identity Not on file Sexual Orientation [...] AND B / Product Type: Medicare / Teliportme Visit Count: 1 PERTINENT MEDICAL / SURGICAL [...] adjusted foot plates for comfort Access Code: [email or web address] URL: [email or web address] Date: 12/22/2024 Prepared by: Ania Ward Exercises [...] st Contact Info) Description 01/27/2025 9:00 AM CHISEL MORTISER OPERATOR Clinical Support Department of Rehabilitation Services in [address] [phone] Tavo Nix II, M.D. [address] [place] [phone] Ania Ward P.T., D.P.T. 02/10/2025 9:45 AM CHISEL MORTISER OPERATOR Clinical Support Department of Rehabilitation Services in [address] [phone] Tavo Nix II, M.D. [address] [place] [phone] Ania Ward P.T., D.P.T. documented as of this encounter Visit Diagnoses Diagnosis Pain Hip Bilateral- Primary documented in this encounter Care Teams Event Lighting Specialist Relationship Specialty Start Date End Date Elsewhere, Pcp PCP - General 04/04/19 documented as of this encounter
--- OUTSIDE RECORDS SUMMARY | 2025-01-05 07:45 | XMS_ITS | Encounter Summary ---
Author Organization [facility] Address [address] [place] [address] Care Team Providers Care Corner Cutter Machine Operator Name Role Phone Elsewhere, Pcp Primary Care Provider Unavailabl e Reason for Visit * Physical Therapy (Routine) - Authorized Specialty Diagnoses / Procedures Referred By Riaz norris Referred To Contact Diagnoses Pain Hip Bilateral Procedures PT Ongoing treatment Tavo Nix II, M.D. [address] [place] [address] Phone: tel: fax: [facility] Region Referral ID Status Reason Start Date Expiration Date V isits Requested Visits Authorized [id number] Authorized 12/22/2024 03/24/2026 99 99 Encounter Details Date Type Department Care Team (Late st Contact Info) Description 01/05/2025 8:45 AM CDT Clinical Support Department of Rehabilitation Services in [address] [phone] Tavo Nix II, M.D. [address] [place] [address] Ania Ward P.T., D.P.T. Pain Hip Bilateral Social History Tobacco Use Types Packs/Day Years Used Date Smoking Tobacco: Never Sex and Gender Information Value Date Recorded Sex Assigned at Not on file Legal Sex Male 8:35 AM SEAT COVER INSTALLER Gender Identity Not on file Sexual Orientation Not on file documented as of this encounter Progress Notes * Ania Ward P.T., D.P.T. - 01/05/2025 8:45 AM CDT Physical Therapy Outpatient Treatment Note SUBJECTIVE Patient's Name: Alberto Rosenthal Referring Provider: Jared Bowden II Visit Diagnosis: 1. Pain Hip Bilateral Payor: MEDICARE / Plan: MEDICARE A AND B / Product Type: Medicare / PT Next Certification Date: 03/22/25 Epic Visit Count: 2 Patient comments: pt states his low back hurts more with walking today than his hips do, states taking longer strides is difficult for him. Reports he does feel better after doing his HEP. History of Present Illness OBJECTIVE Pain: 06/23 back and hips Physical Exam Ortho Exam TREATMENT Treatment today consisted of: Therapeutic Exercise: Performed with the intent to improve strength and endurance, range of motion,flexibility, joint mobility, joint stability, and/or reduce edema/lymphedema. Therapist is present,providing one-on-one verbal and tactile cues for correct completion of exercises, facilitation of appropriate muscle activation/ recruitment and patient safety. SciFit x 10 min at level #2 monitored for sx of fatigue or pain during, adjusted foot plates for comfort Standing lunge stretch to improve hip flexion ROM x 3 each with 10 sec hold Lumbar Extension machine: 80 lbs x 20 reps and 95 lbs x 20 reps Standing exs in parallel bars for balance: Hip abduction 5 reps x 3 sets each Hip extension 5 reps x 3 sets each Standing heel / toe raises x 10 ea Exercises review of current HEP: - Clamshell with Resistance - 1 x [...] weekly - 3 sets - 10 reps NEW HEP: Standing hip abduction 5 reps x 2 sets each with B UE hold Home Exercise Program/Education: above daily Patient reports good HEP compliance. Assessment & Plan Clinical Impression: Patient presents to physical therapy with signs and symptoms consistent with Bilateral hip pain and bilateral shoulder pain. Functional Goals and Timeframes: PT Goal #1: Patient will be able to walk 20+ minutes without hip pain to return to [facility]. PT Goal #1 to be achieved by: 03/17/25 PT Goal #2: Patient will have 5/5 hip extension and abduction strength to improve gait and balance. PT Goal #2 to be achieved by: 03/17/25 PT Goal #3: Patient will be I in HEP for improved B hip ROM and strength. PT Goal #3 to be achieved by: 03/17/25 No data recorded Plan for next session: con't with LE strengthening and B hip ROM / flexibility exs Time Spent with Patient Therapeutic Interventions Therapeutic Exercise (min): 45 min Time Tracking Total Timed Units (min): 45 min Total Treatment Time (min): 45 min documented in this encounter Plan of Treatment Upcoming Encounters Date Type Department Care Team (Late st Contact Info) Description 01/27/2025 9:00 AM SEAT COVER INSTALLER Clinical Support Department of Rehabilitation Services in [address] [phone] Tavo Nix II, M.D. [address] [place] [phone] Ania Ward P.T., D.P.T. 02/10/2025 9:45 AM SEAT COVER INSTALLER Clinical Support Department of Rehabilitation Services in [address] [phone] Tavo Nix II, M.D. [address] [place] [address] Ania Ward P.T., D.P.T. documented as of this encounter Visit Diagnoses Diagnosis Pain Hip Bilateral documented in this encounter Care Teams Corner Cutter Machine Operator Relationship Specialty Start Date End Date Elsewhere, Pcp PCP - General 04/04/19 documented as of this encounter
--- OUTSIDE RECORDS SUMMARY | 2025-01-05 07:45 | XMS_ITS | Encounter Summary ---
Author Organization [facility] Address [address] [place] [address] Care Team Providers Care Outside Machinist Apprentice Name Role Phone Elsewhere, Pcp Primary Care Provider Unavailabl e Reason for Visit * Physical Therapy (Routine) - Authorized Specialty Diagnoses / Procedures Referred By Riaz norris Referred To Contact Diagnoses Pain Hip Bilateral Procedures PT Ongoing treatment Tavo Nix II, M.D. [address] [place] [address] Phone: tel: fax: [facility] Region Referral ID Status Reason Start Date Expiration Date V isits Requested Visits Authorized [id number] Authorized 12/22/2024 03/24/2026 99 99 Encounter Details Date Type Department Care Team (Late st Contact Info) Description 01/05/2025 8:45 AM CDT Clinical Support Department of Rehabilitation Services in [address] [phone] Tavo Nix II, M.D. [address] [place] [address] Ania Ward P.T., D.P.T. Pain Hip Bilateral Social History Tobacco Use Types Packs/Day Years Used Date Smoking Tobacco: Never Sex and Gender Information Value Date Recorded Sex Assigned at Not on file Legal Sex Male 8:35 AM SANITARY ENGINEER Gender Identity Not on file Sexual Orientation [...] st Contact Info) Description 01/27/2025 9:00 AM SANITARY ENGINEER Clinical Support Department of Rehabilitation Services in [address] [phone] Tavo Nix II, M.D. [address] [place] [phone] Ania Ward P.T., D.P.T. 02/10/2025 9:45 AM SANITARY ENGINEER Clinical Support Department of Rehabilitation Services in [address] [phone] Tavo Nix II, M.D. [address] [place] [address] Ania Ward P.T., D.P.T. documented as of this encounter Visit Diagnoses Diagnosis Pain Hip Bilateral documented in this encounter Care Teams Outside Machinist Apprentice Relationship Specialty Start Date End Date Elsewhere, Pcp PCP - General 04/04/19 documented as of this encounter
--- OUTSIDE RECORDS SUMMARY | 2025-01-09 08:45 | XMS_ITS | Encounter Summary ---
Author Organization [facility] Address [address] [place] [address] Care Team Providers Care Printing And Stamping Supervisor Name Role Phone Elsewhere, Pcp Primary Care Provider Unavailabl e Reason for Visit * Physical Therapy (Routine) - Authorized Specialty Diagnoses / Procedures Referred By Riaz norris Referred To Contact Diagnoses Pain Hip Bilateral Procedures PT Ongoing treatment Tavo Nix II, M.D. [address] [place] [address] Phone: tel: fax: [facility] Region Referral ID Status Reason Start Date Expiration Date V isits Requested Visits Authorized [id number] Authorized 12/22/2024 03/24/2026 99 99 Encounter Details Date Type Department Care Team (Late st Contact Info) Description 01/09/2025 9:45 AM CDT Clinical Support Department of Rehabilitation Services in [address] [phone] Tavo Nix II, M.D. [address] [place] [address] Ania Ward P.T., D.P.T. Pain Hip Bilateral Social History Tobacco Use Types Packs/Day Years Used Date Smoking Tobacco: Never Sex and Gender Information Value Date Recorded Sex Assigned at Not on file Legal Sex Male 8:35 AM DONATION SPECIALIST Gender Identity Not on file Sexual Orientation Not on file documented as of this encounter Progress Notes * Ania Ward P.T., D.P.T. - 01/09/2025 9:45 AM CDT Physical Therapy Outpatient Treatment Note SUBJECTIVE Patient's Name: Alberto Rosenthal Referring Provider: Tavo Nix II, M.D. Visit Diagnosis: 1. Pain Hip Bilateral Payor: MEDICARE / Plan: MEDICARE A AND B / Product Type: Medicare / PT Next Certification Date: 03/22/25 [facility] Visit Count: 3 Patient comments: pt states he feels overall some improvement with his PT sessions and it doing most of his exercises each day and they are going well. Continues to be frustrated by his balance seeming to be off. History of Present Illness OBJECTIVE Pain: 06/23 [...] safety. SciFit x 10 min at level #2.5 monitored for sx of fatigue or pain during, adjusted foot plates for comfort Standing lunge stretch to improve hip flexion ROM x 3 each with 10 sec hold Lumbar Extension machine: 80 lbs x 20 reps and 95 lbs x 20 reps Leg Press 60 lb 15 reps x 2 sets Standing exs in parallel bars for balance: Hip abduction 5 reps x 3 sets each Hip extension 5 reps x 3 sets each Standing heel / toe raises x 10 ea Mini squat x 5 Sidestepping over keven x 10 reps each direction Forward stepping over keven x 10 reps each direction *one UE hold allowed during step overs NBOS and modified tandem with head turns L/R, up/down with one UE hold on bar during Exercises review of current HEP: - Clamshell [...] weekly - 3 sets - 10 reps -Standing hip abduction 5 reps x 2 sets each with B UE hold NEW HEP: Sidestepping along counter top x 3 each direction Home Exercise Program/Education: above daily Patient reports good HEP compliance. Assessment & Plan Clinical Impression: Patient presents to physical therapy with signs and symptoms consistent with Bilateral hip pain and bilateral shoulder pain. Functional Goals and Timeframes: PT Goal #1: Patient will be able to walk 20+ minutes without hip pain to return to [facility]. PT Goal #1 to be achieved by: 03/17/25 PT Goal #2: Patient will have 5/5 hip extension and abduction strength to improve gait and balance. PT Goal #2 to be achieved by: 03/17/25 PT Goal #3: Patient will be I in HEP for improved B hip ROM and strength. PT Goal #3 to be achieved by: 03/17/25 Plan for next session: con't with LE strengthening and B hip ROM / flexibility exs Time Spent with Patient Therapeutic Interventions Therapeutic Exercise (min): 45 min Time Tracking Total Timed Units (min): 45 min Total Treatment Time (min): 45 min documented in this encounter Plan of Treatment Upcoming Encounters Date Type Department Care Team (Late st Contact Info) Description 01/27/2025 9:00 AM DONATION SPECIALIST Clinical Support Department of Rehabilitation Services in [address] [phone] Tavo Nix II, M.D. [address] [place] [phone] Ania Ward P.T., D.P.T. 02/10/2025 9:45 AM DONATION SPECIALIST Clinical Support Department of Rehabilitation Services in [address] [phone] Tavo Nix II, M.D. [address] [place] [address] [place] [phone] Ania Ward P.T., D.P.T. documented as of this encounter Visit Diagnoses Diagnosis Pain Hip Bilateral documented in this encounter Care Teams Printing And Stamping Supervisor Relationship Specialty Start Date End Date Elsewhere, Pcp PCP - General 04/04/19 documented as of this encounter
--- OUTSIDE RECORDS SUMMARY | 2025-01-09 08:45 | XMS_ITS | Encounter Summary ---
Author Organization [facility] Address [address] [place] [address] Care Team Providers Care Assistant Store Manager Name Role Phone Elsewhere, Pcp Primary Care Provider Unavailabl e Reason for Visit * Physical Therapy (Routine) - Authorized Specialty Diagnoses / Procedures Referred By Riaz norris Referred To Contact Diagnoses Pain Hip Bilateral Procedures PT Ongoing treatment Tavo Nix II, M.D. [address] [place] [address] Phone: tel: fax: [facility] Region Referral ID Status Reason Start Date Expiration Date V isits Requested Visits Authorized [id number] Authorized 12/22/2024 03/24/2026 99 99 Encounter Details Date Type Department Care Team (Late st Contact Info) Description 01/09/2025 9:45 AM CDT Clinical Support Department of Rehabilitation Services in [address] [phone] Tavo Nix II, M.D. [address] [place] [address] Ania Ward P.T., D.P.T. Pain Hip Bilateral Social History Tobacco Use Types Packs/Day Years Used Date Smoking Tobacco: Never Sex and Gender Information Value Date Recorded Sex Assigned at Not on file Legal Sex Male 8:35 AM CHIEF DEPUTY CLERK/BAILIFF Gender Identity Not on file Sexual Orientation [...] Medicare / PT Next Certification Date: 03/22/25 [facility] Visit Count: 3 Patient comments: pt states [...] minutes without hip pain to return to [facility]. PT Goal #1 to be [...] st Contact Info) Description 01/27/2025 9:00 AM CHIEF DEPUTY CLERK/BAILIFF Clinical Support Department of Rehabilitation Services in [address] [phone] Tavo Nix II, M.D. [address] [place] [phone] Ania Ward P.T., D.P.T. 02/10/2025 9:45 AM CHIEF DEPUTY CLERK/BAILIFF Clinical Support Department of Rehabilitation Services in [address] [phone] Tavo Nix II, M.D. [address] [place] [address] [place] [phone] Ania Ward P.T., D.P.T. documented as of this encounter Visit Diagnoses Diagnosis Pain Hip Bilateral documented in this encounter Care Teams Assistant Store Manager Relationship Specialty Start Date End Date Elsewhere, Pcp PCP - General 04/04/19 documented as of this encounter
--- OUTSIDE RECORDS SUMMARY | 2025-01-19 08:45 | XMS_ITS | Encounter Summary ---
Author Organization [facility] Address [address] [place] [address] Care Team Providers Care Detective Sergeant Name Role Phone Elsewhere, Pcp Primary Care Provider Unavailabl e Reason for Visit * Physical Therapy (Routine) - Authorized Specialty Diagnoses / Procedures Referred By Riaz norris Referred To Contact Diagnoses Pain Hip Bilateral Procedures PT Ongoing treatment Tavo Nix II, M.D. [address] [place] [address] Phone: tel: fax: [facility] Region Referral ID Status Reason Start Date Expiration Date V isits Requested Visits Authorized [id number] Authorized 12/22/2024 03/24/2026 99 99 Encounter Details Date Type Department Care Team (Late st Contact Info) Description 01/19/2025 8:45 AM MAINTAINER OPERATOR Clinical Support Department of Rehabilitation Services in [address] [phone] Tavo Nix II, M.D. [address] [place] [address] Ania Ward PPraveena, D.P.T. Pain Hip Bilateral Social History Tobacco Use Types Packs/Day Years Used Date Smoking Tobacco: Never Sex and Gender Information Value Date Recorded Sex Assigned at Not on file Legal Sex Male 8:35 AM MAINTAINER OPERATOR Gender Identity Not on file Sexual Orientation Not on file documented as of this encounter Progress Notes * Ania Ward P.Krissy., D.P.T. - 01/19/2025 8:45 AM CST Physical Therapy Outpatient Treatment Note SUBJECTIVE Patient's Name: Alberto Rosenthal Referring Provider: Tavo Nix II, M.D. Visit Diagnosis: 1. Pain Hip Bilateral Payor: MEDICARE / Plan: MEDICARE A AND B / Product Type: Medicare / PT Next Certification Date: 03/22/25 [facility] Visit Count: 4 Patient comments: pt states he feels his walking is limited some days by hip discomfort and others by his low back hurting. Overall does feel better after starting the PT sessions however, reports zero falls since starting PT History of Present Illness OBJECTIVE Pain: 06/23 back and hips Physical Exam Ortho Exam Using measurements collected by [employer], Alberto Ariadna's fall evaluation from Jan 20, 2025 was based on the following: Gait based indicators: Alberto Rgnancigarry tracked 1 walks with [employer] on Jan 19, 2025, with the following results: Walk taken on Jan 19, 2025 Velocity Velocity is 0.79 m/s, which is below the typical range of 0.8 m/s or more, and is associated with poor cardiorespiratory health, and overall decreased mobility. Jenny Jenny is 102 steps/min which is within typical walking range of 80 steps/min or more, and is one component of an optimal walking pattern. Double support Double support is 34% which is considered within the typical range of 35% or less. Stance asymmetry Stance asymmetry is 1.8% and is within the typical range of 8% or less. Step length asymmetry Step length asymmetry is 5.7% and is within the typical range of 6% or less. TREATMENT Treatment today consisted of: Therapeutic Exercise: [...] Sidestepping over keven x 10 reps each direction-- 3 lb ankle weights on during this today Forward stepping over keven x 10 reps [...] minutes without hip pain to return to [facility]. PT Goal #1 to be achieved by: [...] min Total Treatment Time (min): 45 min TAINER OPERATOR documented in this encounter Plan of Treatment Upcoming Encounters Date Type Department Care Team (Late st Contact Info) Description 01/27/2025 9:00 AM MAINTAINER OPERATOR Clinical Support Department of Rehabilitation Services in [address] [phone] Tavo Nix II, M.D. [address] [place] [phone] Ania Wadr P.T., D.P.T. 02/10/2025 9:45 AM MAINTAINER OPERATOR Clinical Support Department of Rehabilitation Services in [address] [phone] Tavo Nix II, M.D. [address] [place] [phone] Ania Ward P.T., D.P.T. documented as of this encounter Visit Diagnoses Diagnosis Pain Hip Bilateral documented in this encounter Care Teams Detective Sergeant Relationship Specialty Start Date End Date Elsewhere, Pcp PCP - General 04/04/19 documented as of this encounter
--- OUTSIDE RECORDS SUMMARY | 2025-01-19 08:45 | XMS_ITS | Encounter Summary ---
Author Organization [facility] Address [address] [place] [address] Care Team Providers Care Bankruptcy Law Specialist Name Role Phone Elsewhere, Pcp Primary Care Provider Unavailabl e Reason for Visit * Physical Therapy (Routine) - Authorized Specialty Diagnoses / Procedures Referred By Riaz norris Referred To Contact Diagnoses Pain Hip Bilateral Procedures PT Ongoing treatment Tavo Nix II, M.D. [address] [place] [address] Phone: tel: fax: [facility] Region Referral ID Status Reason Start Date Expiration Date V isits Requested Visits Authorized [id number] Authorized 12/22/2024 03/24/2026 99 99 Encounter Details Date Type Department Care Team (Late st Contact Info) Description 01/19/2025 8:45 AM SCARFER OPERATOR Clinical Support Department of Rehabilitation Services in [address] [phone] Tavo Nix II, M.D. [address] [place] [address] Ania Ward PPraveena, D.P.T. Pain Hip Bilateral Social History Tobacco Use Types Packs/Day Years Used Date Smoking Tobacco: Never Sex and Gender Information Value Date Recorded Sex Assigned at Not on file Legal Sex Male 8:35 AM SCARFER OPERATOR Gender Identity Not on file Sexual [...] Medicare / PT Next Certification Date: 03/22/25 [facility] Visit Count: 4 Patient comments: pt states he feels his walking is limited some days by hip discomfort and others by his low back hurting. Overall does feel better after starting the PT sessions however, reports zero falls since starting PT History of Present Illness OBJECTIVE Pain: 06/23 back and hips Physical Exam Ortho Exam Using measurements collected by [employer], Alberto Ariadna's fall evaluation from Jan 20, [...] minutes without hip pain to return to [facility]. PT Goal #1 to be achieved by: [...] min Total Treatment Time (min): 45 min FER OPERATOR documented in this encounter Plan of Treatment Upcoming Encounters Date Type Department Care Team (Late st Contact Info) Description 01/27/2025 9:00 AM SCARFER OPERATOR Clinical Support Department of Rehabilitation Services in [address] [phone] Tavo Nix II, M.D. [address] [place] [phone] Ania Ward P.T., D.P.T. 02/10/2025 9:45 AM SCARFER OPERATOR Clinical Support Department of Rehabilitation Services in [address] [phone] Tavo Nix II, M.D. [address] [place] [phone] Ania Ward P.T., D.P.T. documented as of this encounter Visit Diagnoses Diagnosis Pain Hip Bilateral documented in this encounter Care Teams Bankruptcy Law Specialist Relationship Specialty Start Date End Date Elsewhere, Pcp PCP - General 04/04/19 documented as of this encounter
--- OUTSIDE RECORDS SUMMARY | 2025-01-24 21:19 | XMS_ITS | Clinical Summary ---
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 0 09/22/19 10 Active blood-glucose meterIndications :Uncontrolled type 2 diabetes mellitus without complication, without long-term current use of insulin Dispense meter, test strips, lancets covered by pt ins. E11.9 NIDDM type II - Test 2 times/day. Reason: High A1C 1 Device 03/19/19 18 Active lancetsIndicatio ns:Type 2 diabetes mellitus, with long-term current use of insulin (HC) As directed. Test 2 times per day. High A1C. 200 Each 3 11/30/19 23 Active CPAPIndications: CARLOS (obstructive sleep apnea) Resmed CPAP machine for home use at pressure 5-15cmw, CPAP mask- mask of choice, fit to comfort one per 3 months; cushions one per month 1 Each 11 08/19/19 24 Active blood sugar diagnostic (Accu-Chek SmartView Test Strip) stripIndications :Diabetes mellitus without complication (HC) USE TO TEST TWICE DAILY 200 Each 3 02/02/20 24 Active amLODIPine 10 mg tabletIndication s:Essential hypertension Take 1 Tablet (10 mg) by mouth once daily. 90 Tablet 3 09/20/19 25 Active Lantus Solostar U-100 Insulin 100 unit/mL (3 mL) penIndications:T ype 2 diabetes mellitus with complication, with long-term current use of insulin (HC) Inject 65 units subcutaneous before bedtime. Product desired: CARLOS ENRIQUE ONOFREAR 90 mL 1 09/20/19 25 Active metFORMIN 500 mg Extended-Release tabletIndication s:Type 2 diabetes mellitus with complication, with long-term current use of insulin (HC) Take 4 Tablets (2,000 mg) by mouth once daily with evening meal. 360 Tablet 1 09/20/19 25 Active pioglitazone 30 mg tabletIndication s:Type 2 diabetes mellitus with complication, with long-term current use of insulin (HC) Take 1 Tablet (30 mg) by mouth once daily. 90 Tablet 1 09/20/19 25 Active atorvastatin (LIPITOR) 40 mg tabletIndication s:Diabetes mellitus without complication (HC) TAKE 1 TABLET(40 MG) BY MOUTH DAILY 90 Tablet 3 09/24/19 25 Active FreeStyle Tabitha 3 [place] for continuous blood glucose monitor (CGM)Indications :Diabetes mellitus without complication (HC) To be used to read blood sugars follow cook tortilla directions. 1 Each 10/11/19 25 Active pen needle 31 gauge x 5/16 (disposable insulin pen needle)Indicatio ns:Diabetes mellitus without complication (HC) Remove the 2 covers on the pen needle before administering medication dose. 100 Each 11 11/02/19 25 Active glipiZIDE extended-release (GLUCOTROL XL) 5 mg Extended-Release tabletIndication s:Diabetes mellitus without complication (HC) Take 2 Tablets (10 mg) by mouth once daily before a meal. 180 Tablet 12/10/19 25 Active lisinopril-hydro chlorothiazide 20-12.5 mg tablet (PRINZIDE)Indica tions:Benign essential HTN Take 2 Tablets by mouth once daily. 180 Tablet 3 12/21/19 25 Active empagliflozin (JARDIANCE) 10 mg tabletIndication s:Diabetes mellitus without complication (HC) Take 1 Tablet (10 mg) by mouth once daily. 30 Tablet 5 12/21/19 25 Active FreeStyle Tabitha 3 Plus Sensor for continuous blood glucose monitor (CGM)Indications :Diabetes mellitus without complication (HC) To be used to read blood sugars, follow cook tortilla directions. Change each sensor every 15 days. 6 Each 3 01/17/20 25 Active FreeStyle Tabitha 3 Plus Sensor for continuous blood glucose monitor (CGM)Indications :Diabetes mellitus without complication (HC) To be used to read blood sugars, follow cook tortilla directions. Change each sensor every 15 days. 2 Each 11/25/19 025 Discontin ued(Reord er (E-cancel not sent)) Active Problems Problem Noted Date Diagnosed Date Type 2 diabetes mellitus wit h complication, with long-term current use of insulin 03/23/2024 CARLOS (obstructive sleep apnea) 09/10/2023 Anxiety and depression 08/13/2023 Insomnia, idiopathic 08/13/2023 Hypertension associated with diabetes 05/04/2023 BPH (benign prostatic hypertrophy) 08/18/2014 Adenomatous colon polyp 02/15/2013 Overview (04/02/2018): Colonoscopy 01/2013 polyps repeat in 5 years Colonoscopy 03/2018 poylps, repeat in 5 years Erectile dysfunction 05/08/2011 Mixed hyperlipidemia 05/08/2009 Allergic rhinitis, cause unspecified 08/10/2007 Unspecified essential hypertension 07/07/2007 Obesity, unspecified 07/07/2007 Myopia 10/29/2001 06/06/2022 Resolved Problems Problem Noted Date Diagnosed Date Resolved Date Type II or unspecified type diabetes mellitus without mention of complication, not stated as uncontrolled 12/24/2005 03/23/2024 Encounters Date Type Department Care Team Description 01/17/2025 Telephone [facility] [address] [place] [address] Tavo Nix MD Form 01/16/2025 Telephone [facility] [address] [place] [address] Tavo Nix MD Medication Management (Per patient is stating per Pharmacy insurance is not wanting to pay for Rx:FreeStyle Tabitha 3 Plus Sensor for continuous blood glucose monitor (CGM) ) 12/20/2024 8:00 AM CDT Office Visit [facility] [address] [place] [address] Tavo Nix MD Diabetes (3 month follow up); Follow Up (Bilateral hip pain and shoulder pain, not getting better) 12/20/[address] [address] Tavo Nix MD Results 12/20/2024 Travel 12/08/2024 10:00 AM CDT Patient Outreach [address] [phone] Maddie Corral RN Diabetes (Follow-up medication management/CGM download) 12/08/2024 Refill [facility] [address] [place] [address] Tavo Nix MD Refill Request (Glipizide ER 5mg tablets) 12/08/2024 Travel 11/24/2024 Telephone [facility] [address] [place] [address] Tavo Nix MD Medication Management (Refill needed today for Rx:FreeStyle Tabitha 3 Plus Sensor for continuous blood glucose monitor (CGM)) 11/21/2024 10:00 AM CDT Patient Outreach [address] [phone] Maddie Corral RN Diabetes (F/u, download Tabitha CGM) 11/21/2024 Travel 11/01/2024 Nurse Triage [facility] [address] [place] [address] Tavo Nix MD High Blood Sugar 11/01/[address] [phone] Maddie Corral cutter and paster press clippings Problem (discuss supplies) 10/28/2024 11:00 AM CDT Patient Outreach [address] [phone] Maddie Corral business project analyst (Tabitha 3 CGM training) 10/28/2024 Travel from Last 3 Months Immunizations Immunization Administration Dates Next Due COVID-19 VACCINE SPIKEVAX (M ODERNA 50MCG/0.5ML) 12YO+ PFS 09/19/2024,06/09/2023 COVID-19 vaccine ([employer] NTech 30mcg/0.3mL) 12YO+ TOYA-SUCROSE PF, MDV 08/19/2021 COVID-19 vaccine ([employer] NTech 30mcg/0.3mL) PF, MDV 06/15/2020,05/25/2020 Hepatitis B (Adult) 05/04/2013,12/09/2012,201205/14/2013 Influenza Virus, Unspecified 12/23/2015 Influenza, High-dose Inactivated 01/03/2024,11/14,11/11/2012 Influenza, High-dose Quadriv alent Inactivated 01/14/2023,12/22/2020 Influenza, IIV3 (Age >=3 years) 12/02/19 14,11/11/2011,11/13/2009,12/15 Influenza, Inactivated AIIV4 (Age 65+ Years) Preserv Free 11/28/2019 Influenza, Inactivated IIV3 (Age 65+ Years) Preserv Free 12/20/2024,11/23/2018,12/23/2017,110 03/2016 Pneumococcal Conj 20-valent (Prevnar 20) 05/02/2022 Pneumococcal Poly,23-Valent (Pneumovax) 05/08/2010,03/16/2009 Pneumococcal conj 13-Valent (Prevnar 13) 02/03/2014 RSV, Recombinant ADJ Reconst ituted (Arexvy 120MCG/0.5mL) 01/07/2023 Td (Age >=7 Years) 03/16/2002 Td, Preservative Free (age > = 7 Years) 03/07/2019 Tdap 08/25/2007 Zoster (Shingrix-RZV, recombinant) 11/01/2019,,12/03/2018 Zoster (Zostavax-ZVL, live) 08/14/2012 Family History Medical History Relation Name Comments Lung cancer Father Diabetes Mother Anesthesia Problem No Family History Blood Disease No Family History Cancer-colon No Family History Cancer-prostate No Family History Clotting disorder No Family History Relation Name Status Comments Father Mother Social History Tobacco Use Types Packs/Day Years Used Date Smoking Tobacco: Never Smokeless Tobacco: Never Tobacco Cessation:Counseling Given: No Alcohol Use Standard Drinks/Week Comments Yes 0 (1 standard drink = 0.6 oz pur e alcohol) few beers occasionally PHQ-2 Answer Date Recorded PHQ-2 TOTAL SCORE 2 09/19/2024 Social Connections Answer Date Recorded Do you often feel lonely or isolated from those around you? 0 03/23/2024 Alcohol Use Answer Date Recorded How often do you have a drink containing alcohol ? 1 12/20/2024 How many drinks containing a lcohol do you have on a typical day when you are drinking? 0 12/20/2024 How often do you have five or more drinks on one occasion? 0 12/20/2024 Financial Resource Strain Answer Date R ecorded Difficulty of Paying Living Expenses 3 03/23/2024 Difficulty of Paying Living Expenses Not on file 03/23/2024 Food Insecurity Answer Date Recorded Do you worry your food will run out before you are able to buy more? 1 03/23/2024 Transportation Needs Answer Date Record ed Does lack of transportation keep you from medica l appointments? 1 03/23/2024 Does lack of transportation keep you from work, meetings or getting things that you need? 1 03/23/2024 Housing Stability Answer Date Recorded What is your housing situation today? 1 03/23/2024 Utilities Answer Date Recorded Do you have trouble paying f or utilities (for example, heat, electricity, water, phone)? 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 Gender Identity Not on file Sexual Orientation Not on file Obstetrics History Last Filed Vital Signs Vital Sign Reading Time Taken Comments Blood Pressure 149/75 12/20/2024 7:53 AM CDT Pulse 84 12/20/2024 7:53 AM CDT Temperature 36.7 C (98 F) 11/28/2019 8:06 AM CDT Respiratory Rate 14 11/01/2017 10:08 AM CDT Oxygen Saturation 95% 12/20/2024 7:53 AM CDT Inhaled Oxygen Concentration - - Weight 107 kg (236 lb) 12/20/2024 7:53 AM CDT Height 175.1 cm (5' 8.94) 09/19/2024 7:46 AM CD T Body Mass Index 34.91 09/19/2024 7:46 AM CDT Plan of Treatment Upcoming Encounters Date Type Department Care Team (Late st Contact Info) Description 03/22/2025 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 Office Visit [facility] [address] [place] [address] Tavo Nix MD [address] [place] [address] Health Maintenance Due Date Last Done Comments BMI (ht and wt on same day) for age 18+ 09/19/2025 09/19/2024, 08/19/2023, 10/30/2022, Additional history exists Depression screening for age 12+ 09/19/2025 09/19/2024, 09/10/2023, 09/10/2023, Additional history exists Medicare Wellness for age 65+ 09/20/2025 09/19/2024, 10/30/2022 Tetanus booster 03/07/2029 03/07/2019, 08/14, 03/16/2002 Hepatitis B series for 19+ Completed 05/04, 12/09/2012, 11/11/2012 Zoster (shingles) series for age 50+ Completed 11/01/2019, 04/27/2019, 12/03/2018, Additional history exists Pneumococcal series for age 50+ Completed 05/02/2022, 02/03/2014, 05/08/2010, Additional history exists RSV vaccine for adults or Completed 01/07/2023 Influenza Vaccine Completed 12/20/2024, , 11/28/2019, Additional history exists Procedures Procedure Name Priority Date/Time Associated Diagnosis Comments HEMOGLOBIN A1C MONITORING (POCT) Routine 12/20/2024 8:44 AM CDT Diabetes mellitus without complication (HC) URINE ALBUMIN TO CREATININE RATIO, RANDOM Routine 12/20/2024 8:44 AM CDT Type II or unspecified type diabetes mellitus without mention of complication, not stated as uncontrolled from Last 3 Months Results * (ABNORMAL) URINE ALBUMIN TO CREATININE RATIO, RANDOM (12/20/2024 8:44 AM CDT) ALB RAND URINE 179.0 mg/L 12/20/2024 4:06 PM CDT [facility] CREATININE,URIN E 1.53 g/L 12/20/2024 4:06 PM CDT [facility] TRA [facility] ALBUMIN TO CREATININE RATIO,RAND UR 117.0(H) <30.0 mg/g creat 12/20/2024 4:06 PM CDT [facility] Urine URINE SPECIMEN / Unknown Non-Blood / Unknown 12/20/2024 8:44 AM CDT 12/20/2024 8:44 AM CDT Narrative [facility] - 12/20/2024 4:06 PM CDT If Albumin to Creatinine Ratio is elevated, consider the following: Elevations seen with incipient nephropathy associated with diabetes mellitus or hypertension. Stress, exercise,hematuria, and urinary tract infection may also produce elevated results. If clinically indicated, confirm with 24 Hour Albumin to Creatinine Ratio. us Tavo Nix MD URINE Final Result [facility] [address] [place] [address], [place] * (ABNORMAL) HEMOGLOBIN A1C MONITORING (POCT) (12/20/2024 8:44 AM CDT) Pathologist [facility] POC HEMOGLOBIN A1C 7.9(H) <6.0 % OF TOTAL HGB 12/20/2024 8:56 AM CDT [facility] Comment: Any point of care results exhibiting inconsistency with the patient's clinical status should be repeated using a different testing method. Blood BLOOD SPECIMEN / Unknown [facility] / Unknown 12/20/2024 8:44 AM CDT 12/20/2024 8:44 AM CDT Narrative [facility] - 12/20/2024 8:56 AM CDT FASTING:NO FASTING: NO us Tavo Nix MD CHEMISTRY Final Result [facility] [address] [address], [place] [phone] [facility] [address] [place] [address], from Last [address] [place] [address] [employer] [facility] [place] ONLY Care Teams Paving Stone Installer Relationship Specialty Start Date End Date Tavo Nix MD [address] [place] [address] PCP - General 09/29/05
--- OUTSIDE RECORDS SUMMARY | 2025-01-24 21:19 | XMS_ITS | Data Portability ---
Author Organization [facility] Address [address] [place] [address] Care Team Providers Care Internal Auditor Name Role Phone MARCO RUSSELL Primary Care Provider [phone] RUST Primary Care Pro vider Assessment Encounter Date Assessment Date Assessment LastModified by Organization Details LastModified Time 02/23/2024 02/23/2024 This is a 78 year old male who is referred for the evaluation and management of benign prostatic hyperplasia with lower urinary tract symptoms. [email or web address] Not available 02/23/2024 10:33:02 06/21/2024 06/21/2024 This is a 78 year old male who is referred for the evaluation and management of benign prostatic hyperplasia with lower urinary tract symptoms. [email or web address] Not available 06/20/2024 22:24:39 Plan of Treatment Reminders Order Date Submit Date Provider Last Modified By Organization Details Last Modified Time Details Appointments None recorded. Lab None recorded. Referral None recorded. Procedures None recorded. Surgeries None recorded. Imaging None recorded. Medication Orders Myrbetriq 50 mg tablet,ext ended release 2024 025 N[facility][id number], [address] [place], [place], [phone], 14:39:48 trospium 20 mg tablet 2023 024 [email or web address] [facility] [employer] [id number], [address] [place], [place], [phone], 5 14:37:44 Patient TargetsNo targets recorded. Patient Instructions Encounter Date Encounter Id Patient Instructions Last Modified By Organization Details Last Modified Time 02/23/2024 [id number] BPH/Urgency and frequency -Pt with h/o increased frequency and urgency for past 3 months -he denies UTI symptoms but will check UA to r/o infection -PVR emptying well. He denies obstructive symptoms -Discussed first-line conservative management including timed voiding, urge suppression strategies, pelvic floor exercises, and avoidance of bladder irritants. -Discussed second-line therapies including pelvic floor physical therapy and OAB medications. -After hearing the options, patient would like to try trospium. Side effects of trospium were discussed in detail. Potential side effects include dry mouth, constipation and headache. Will have pt follow up in 3 months for PVR check [email or web address] Not available 02/23/2024 10:35:05 06/21/2024 [id number] BPH/Urgency and frequency -Symptoms did not improve with trospium. Also noted dry mouth -interested in other medications -will try Myrbetriq. Side effects of mirabegron were discussed in detail. Potential side effects include hypertension, nasopharyngitis. Advised pt to check BP for the next two week. Discussed that he should stop medication if BP starts rising. -Follow up 2 months [email or web address] Not available 06/21/2024 14:57:17 Reason for Referral None Reported. Problems Name Problem SNOMED Code Status Onset Date Resolution Date Notes Provider Name and Address Organization Details Recorded Time Essential hypertension 72283418 Active 2024 KENNA Taylor [facility] 5 14:18:22 Depression screening Active 2024 KENNA Taylor [facility] 5 14:18:42 Hypercholestero lemia 72381729 Active 2024 KENNA Taylor [facility] 5 14:20:02 Problem Notes None recorded. Procedures Surgical History Date Name Laterality Status Provider Name and Address Organization Details Recorded Time 5 Bladder Scan completed Meme PIERSON [facility] 06/21/2024 14:27:22 4 COMPLEX VISIT completed Paul Hermosillo PA-C [address] [place], [place] [address], [place], [address], [facility] 02/23/2024 10:36:07 4 Bladder Scan completed Paul Hermosillo PA-C [address], [place], [address], [facility] 02/23/2024 10:32:53 9 colonoscopy completed Radha Wallaceyle [facility] 02/23/2024 10:03:42 Imaging Results None recorded. Procedure Notes None recorded. Medical Equipment None Reported. Allergies No known drug allergies Medications Name Sig Start Date Stop Date Status Note LastModified by Organization Details LastModified Time atorvastati n 40 mg tablet active Not Available Not Available Not Available sertraline 100 mg tablet active Not Available Not Available Not Available cefadroxil 500 mg capsule TAKE 1 CAPSULE BY MOUTH TWICE DAILY active Not Available Not Available No t Available tamsulosin 0.4 mg capsule active Not Available Not Available Not Available amlodipine 10 mg tablet active Not Available Not Available Not Available buspirone 10 mg tablet active Not Available Not Available Not Available lisinopril 20 mg-hydrochl orothiazide 25 mg tablet TAKE 1 TABLET BY MOUTH DAILY active Not Available Not Available No t Available pioglitazon e 30 mg tablet active Not Available Not Available Not Available metformin ER 500 mg tablet,exte nded release 24 hr active Not Available Not Available Not Available sertraline 50 mg tablet active Not Available Not Available Not Available escitalopra m 10 mg tablet active Not Available Not Available Not Available mirtazapine 7.5 mg tablet active Not Available Not Available Not Available trospium 20 mg tablet TAKE 1 TABLET BY MOUTH TWICE DAILY 06/21 completed Not Available Not Available Not Available Lantus Solostar U-100 Insulin 100 unit/mL (3 mL) subcutaneou s pen INJECT 65 UNITS SUBCUTANE OUS EVERY NIGHT AT BEDTIME active Not Available Not Available No t Available Accu-Chek SmartView Test Strips USE TO TEST BLOOD SUGAR TWICE DAILY active Not Available Not Available No t Available mirabegron ER 50 mg tablet,exte nded release 24 hr TAKE 1 TABLET BY MOUTH EVERY DAY. FOR INCREASED FREQUENCY 2024 active Not Available Not Available Not Avai lable mirabegron ER 25 mg tablet,exte nded release 24 hr active Not Available Not Available Not Available Easy Touch 32 gauge x 5/32 needle USE DIRECTED DAILY active Not Available Not Available No t Available Accu-Chek Fastclix Lancet Drum TEST TWICE DAILY active Not Available Not Available No t Available Vitals Date Recorded Body height Body mass index (BMI) Body weight Provider Name and Address Organization Details Last Updated DateTime 06/21/2024 175.26 cm 34.7 kg/m2 302151.21 g Meme Costa [facility] 06/21/2024 14:15:40 Date Recorded Body height Body mass index (BMI) Body weight Provider Name and Address Organization Details Last Updated DateTime 02/23/2024 175.26 cm 34.7 kg/m2 291258.21 g Radha Voss [facility] 02/23/2024 10:00:06 Social History Question Answer Notes LastModified by [employer] Details LastModified Time Tobacco Smoking Status [facility] 10:02:17 Do You Have An Advance Directive? No Information not available 02/23/2024 What Is Your Level Of Caffeine Consumption? Occasional [email or web address] Information not available 02/23/2024 Ethnicity Not /Latin o [email or web address] Information not available 02/23/2024 Preferred Language Tuvaluan [email or web address] Information not available 02/23/2024 Recreational Drug Use No [email or web address] Information not available 02/23/2024 Do You Have A Medical Power Of Small Business Representative? No Information not available 02/23/2024 What Was The Date Of Your Most Recent Tobacco Screening? 06/21/2024 Information not available 06/21/2024 What Is Your Relationship Status? Information not available 02/23/2024 Are You Sexually Active? No [email or web address] Information not available 02/23/2024 Has Tobacco Cessation Counseling Been Provided? No [email or web address] Information not available 02/23/2024 Sex: Unknown Functional Status Question Answer Note LastModified by [employer] Details LastModified Time Do you use any illicit or recreational drugs? No [email or web address] Information not available 02/23/2024 Do you or have you ever used any other forms of tobacco or nicotine? No [email or web address] Information not available 02/23/2024 What is your level of alcohol consumption? None [email or web address] Information not available 02/23/2024 Mental Status None recorded. Family History Relationship Description Onset Age of this Age Resolved Age Notes LastModified by Organization Details LastModified Time Father Carcinoma of lung [email or web address] Not available 2023 10:01:44 Mother Family history of cardiac disorder [email or web address] Not available 2023 10:01:58 Medical History Condition Response Diabetes Y Sexually Transmitted Infection N Bleeding Disorder N High Blood Pressure Y Kidney Stones N Cancer N Depression N Lung Disease N High Cholesterol Y GERD/Acid Reflux N Heart Disease N Immunizations Vaccine Type Date Status Note Provider Nam e and Address Organization Details Recorded Time Influenza, adjuvanted, trivalent, PF 9 completed Radha Voss null, [facility] 02/23/2024 10:00:17 Influenza, adjuvanted, trivalent, PF 8 completed Radha Voss null, [facility] 02/23/2024 10:00:17 Influenza, adjuvanted, trivalent, PF 7 completed Radha Voss null, [facility] 02/23/2024 10:00:17 zoster recombinant 0 completed Radha Voss null, [facility] 02/23/2024 10:00:17 zoster recombinant 0 completed Radha Voss null, [facility] 02/23/2024 10:00:17 zoster recombinant 9 completed Radha Voss null, [facility] 02/23/2024 10:00:17 Influenza, high-dose, quadrivalent, PF 1 completed Radha Voss null, [facility] 02/23/2024 10:00:17 Influenza, high-dose, quadrivalent, PF 3 completed Radha Voss null, [facility] 02/23/2024 10:00:17 Influenza, adjuvanted, quadrivalent, PF 0 completed Radha Voss null, [facility] 02/23/2024 10:00:17 COVID-19, mRNA, LNP-S, PF, 30 mcg/0.3 mL dose 1 completed Radha Voss null, [facility] 02/23/2024 10:00:17 COVID-19, mRNA, LNP-S, PF, 30 mcg/0.3 mL dose 1 completed Radha Voss null, [facility] 02/23/2024 10:00:17 COVID-19, mRNA, LNP-S, PF, 30 mcg/0.3 mL dose 1 completed Radha Voss null, [facility] 02/23/2024 10:00:17 Pneumococcal conjugate PCV20, polysaccharide [id number] conjugate, adjuvant, PF 3 completed Radha Voss null, [facility] 02/23/2024 10:00:17 COVID-19, mRNA, LNP-S, PF, 30 mcg/0.3 mL dose, slava-sucrose 2 completed Radha Voss null, [facility] 02/23/2024 10:00:17 COVID-19, mRNA, LNP-S, bivalent, PF, 30 mcg/0.3 mL dose 2 [facility] 10:00:17 RSV, recombinant, protein subunit RSVpreF, adjuvant reconstituted, 0.5 mL, PF 3 completed Radha Ovss null, [facility] 02/23/2024 10:00:17 COVID-19, mRNA, LNP-S, PF, slava-sucrose, 30 mcg/0.3 mL 3 completed Radha Voss null, [facility] 02/23/2024 10:00:17 COVID-19, mRNA, LNP-S, PF, 50 mcg/0.5 mL 4 completed Radha Voss null, [facility] 02/23/2024 10:00:17 COVID-19, subunit, rS-nanoparticle, adjuvanted, PF, 5 mcg/0.5 mL 4 completed Radha Voss null, [facility] 02/23/2024 10:00:17 pneumococcal polysaccharide PPV23 0 completed Radha Voss null, [facility] 02/23/2024 10:00:17 pneumococcal polysaccharide PPV23 1 completed Radha Voss null, [facility] 02/23/2024 10:00:17 Tdap 8 completed Radha Voss null, [facility] 02/23/2024 10:00:17 Pneumococcal conjugate PCV 13 4 completed Radha Voss null, [facility] 02/23/2024 10:00:17 zoster live 3 completed Radha Voss null, [facility] 02/23/2024 10:00:17 zoster live 3 completed Radha Voss null, [facility] 02/23/2024 10:00:17 Influenza, high-dose, trivalent, PF 3 completed Radha Voss null, [facility] 02/23/2024 10:00:17 Influenza, high-dose, trivalent, PF 5 completed Radha Voss null, [facility] 02/23/2024 10:00:17 Influenza, high-dose, trivalent, PF 6 completed Radha Voss null, [facility] 02/23/2024 10:00:18 Influenza, high-dose, trivalent, PF 4 completed Radha Voss null, [facility] 02/23/2024 10:00:18 Influenza, split virus, trivalent, preservative 2 completed Radha Voss null, [facility] 02/23/2024 10:00:18 Influenza, split virus, trivalent, preservative 4 completed Radha Voss null, [facility] 02/23/2024 10:00:18 Influenza, split virus, trivalent, preservative 6 completed Radha Voss null, [facility] 02/23/2024 10:00:18 Influenza, split virus, trivalent, PF 0 completed Radha Voss null, [facility] 02/23/2024 10:00:18 Td (adult), 5 Lf tetanus toxoid, preservative free, adsorbed 9 completed Radha Voss null, [facility] 02/23/2024 10:00:18 Td (adult), 2 Lf tetanus toxoid, preservative free, adsorbed 3 completed Radha Voss null, [facility] 02/23/2024 10:00:18 Hep B, adult 4 completed Radha Voss null, [facility] 02/23/2024 10:00:18 Hep B, adult 3 completed Radha Voss null, [facility] 02/23/2024 10:00:18 Hep B, adult 3 completed Radha Voss null, [facility] 02/23/2024 10:00:18 Past Encounters Encounter ID Performer Location Encounter Start Date Encounter Closed Date Diagnosis/Indication Diagnosis SNOMED-CT Code Diagnosis ICD10 Code Diagnosis IMO Codes Diagnosis Note [id number] Paul Hermosillo PA-C [facility] [address] [place] [address] 02/23/2024 08:06:32 02/23/2024 11:42:36 Lower urinary tract symptoms due to benign prostatic hypertrophy 8945502443 9101 N40.1 Increased frequency of urination 596840757 R35.0 [id number] Paul Hermosillo PA-C [facility] [address] [place] [address] 06/21/2024 09:06:36 06/21/2024 15:05:27 Lower urinary tract symptoms due to benign prostatic hypertrophy 9306619532 9101 N40.1 Increased frequency of urination 392674401 R35.0 Health Concerns Section Related Observation LastModified by Organization Detai ls LastModified Time None Recorded Concern Status LastModified by Organization Details LastModified Time None Recorded Advance Directives Directive N: Payers Insurance Date Sequence Insurance Name Policy Number Policy Guzman Covered Member ID Guzman Member ID Guarantor Name 06/24/2024 1 MEDICA - DUAL ELIGIBLE (MEDICARE REPLACEMENT/ ADVANTAGE - HMO) [id number] Alberto Rosenthal [id number] Alberto Rosenthal Notes Date Note Type Note Provider Name and Address Organization Details Recorded Time 02/23/2024 text/html ROS as noted in the HPI This is a 78 year old male who is referred for the evaluation and management of benign prostatic hyperplasia with lower urinary tract symptoms. He has been struggling with irritative lower urinary tract symptoms for 3 months.His most bothersome symptoms are frequency .He denies gross hematuria.There is no history of recurrent urinary tract infections.There is no history of urinary retention.Current medical therapy includes tamsulosin 0.4mg. discontinued 2 months ago FOS: moderate intermittent stream, no straining or hesitancy. occasional post void dribblingDF:every hour NF: 2. feel like he empties. Pt denies dysuria, urgency and frequencyNo constipation. Pop: 1/2 can but not everyday Radha guido [facility] 02/23/2024 10:50:45 06/21/2024 text/html ROS as noted in the HPI 06/21/24-pt is here for follow up. He was started on Trospium. Feels like it was not helpful. Continues to report increased frequency-he denies dysuria or blood in urine-he does note dry mouth PVR: 4ml 02/23/24 This is a 78 year old male who is referred for the evaluation and management of benign prostatic hyperplasia with lower urinary tract symptoms. He has been struggling with irritative lower urinary tract symptoms for 3 months.His most bothersome symptoms are frequency .He denies gross hematuria.There is no history of recurrent urinary tract infections.There is no history of urinary retention.Current medical therapy includes tamsulosin 0.4mg. discontinued 2 months ago FOS: moderate intermittent stream, no straining or hesitancy. occasional post void dribblingDF:every hour NF: 2. feel like he empties. Pt denies dysuria, urgency and frequencyNo constipation. Pop: 1/2 can but not everyday Paul Hermosillo PA-C [address], [place], [address], [facility] 06/21/2024 14:57:26
--- OUTSIDE RECORDS SUMMARY | 2025-01-24 21:19 | XMS_ITS | Clinical Summary ---
Author Organization [facility] Address [address] [place] [address] Care Team Providers Care Cab Station Attendant Name Role Phone Elsewhere, Pcp Primary Care Provider Unavailabl e Source Comments Patient records contain information from all sites at [facility]. For routine questions regarding patient records, call [phone] during business hours, M-F 8:00 AM - 5:00 PM Central Time. Record requests for emergency care only can be directed to [phone] at any time.[facility] Allergies No known active allergies Medications aspirin [address] tablet Take by mouth. 07/07/2007 Active atorvastatin (LIPITOR) 40 mg tablet Take 40 mg by mouth. 05/29/2017 Active cholecalciferol (VITAMIN D3) 1,000 Unit capsule Take 1 capsule by mouth. 09/21/2009 Active fexofenadine-ps eudoephedrine (BECK-D) 60-120 mg per 12 hr tablet Take 1 tablet by mouth. 07/30/2010 Active insulin glargine 100 unit/mL (3 mL) injection Inject 36 Units under the skin. 12/23/2017 Active metFORMIN (GLUCOPHAGE) 500 mg tablet Take 500 mg by mouth daily. Active Active Problems Problem Noted Date Diagnosed Date Hypertension 04/09/2011 Overview (08/05/2016): Hypertension Diabetes Mellitus Type 2 04/09/2011 Overview (08/05/2016): Diabetes mellitus type II date of onset unknown Sciatica Left Pain Lower Extremity Left Encounters Date Type Department Care Team Description 01/19/2025 8:45 AM FRONT DESK RECEPTIONIST Clinical Support Department of Rehabilitation Services in [address] [address] Tavo Nix II, M.D. Buchholtz, Marie F P.TJr, D.P.T. Pain Hip Bilateral 01/09/2025 9:45 AM CDT Clinical Support Department of [facility] in [address] [address] Tavo Nix II, M.D. Buchholtz, Marie F, P.TJr, D.P.T. Pain Hip Bilateral 01/05/2025 8:45 AM CDT Clinical Support [facility] in [address] [address] Tavo Nix II, M.D. Buchholtz, Marie F, P.T., D.P.T. Pain Hip Bilateral 12/22/2024 7:45 AM CDT Comprehensive Visit Department of Rehabilitation Services in [address] [address] Tavo Nix II, M.D. Buchholtz, Marie F P.T., D.P.T. Pain Hip Bilateral (Primary Dx) from Last 3 Months Immunizations Immunization Administration Dates Next Due PPSV23 03/16/2009 Td (Adult), adsorbed 03/16/2002 Social History Tobacco Use Types Packs/Day Years Used Date Smoking Tobacco: Never Sex and Gender Information Value Date Recorded Sex Assigned at Not on file Legal Sex Male 8:35 AM FRONT DESK RECEPTIONIST Gender Identity Not on file Sexual Orientation Not on file Last Filed Vital Signs Vital Sign Reading Time Taken Comments Blood Pressure 126/66 03/13/2018 11:30 AM FRONT DESK RECEPTIONIST Pulse 79 03/13/2018 11:30 AM FRONT DESK RECEPTIONIST Temperature 36.3 C (97.3 F) 03/13/2018 11:30 AM FRONT DESK RECEPTIONIST Respiratory Rate 18 03/13/2018 11:30 AM FRONT DESK RECEPTIONIST Oxygen Saturation 97% 03/13/2018 11:30 AM FRONT DESK RECEPTIONIST Inhaled Oxygen Concentration - - Weight 97 kg (213 lb 13.5 oz) 03/13/2018 11:27 A M FRONT DESK RECEPTIONIST Height - - Body Mass Index - - Plan of Treatment Upcoming Encounters Date Type Department Care Team (Late st Contact Info) Description 01/27/2025 9:00 AM FRONT DESK RECEPTIONIST Clinical Support Department of Rehabilitation Services in [address] [phone] Tavo Nix II, M.D. [address] [place] [phone] Ania Ward P.T., D.P.T. 02/10/2025 9:45 AM FRONT DESK RECEPTIONIST Clinical Support Department of Rehabilitation Services in [address] [phone] Tavo Nix II, M.D. [address] [place] [phone] Ania Ward, P.T., D.P.T. Health Maintenance Due Date Last Done Comments Diabetic Eye Exam 1945 Diabetic Office Visit with Foot Exam 1944 Office Visit for Blood Pressure Check / Re-check 1944 Urine Albumin 1944 Depression Screening (Annual PHQ-2) 03/16/2024 Fall Risk Screen (Annual) 03/16/2024 Creatinine Level (Kidney Function Test) 05/04/2024 05/04/2023, 05/02/2022, 04/26/2021, Additional history exists Potassium Level 05/04/2024 05/04/2023, 12/14, 05/02/2022, Additional history exists Sodium Level 05/04/2024 05/04/2023, 04/16, 04/26/2021, Additional history exists COVID-19 Vaccine ( season) 2024 09/19/2024, 01/03/2024, 06/09/2023, Additional history exists Hemoglobin A1C 03/22/2025 12/20/2024, 07/0 09/2024, 03/23/2024, Additional history exists DTaP,Tdap,and Td Vaccines (3 - Td or Tdap) 03/07/2029 03/07/2019, 08/25/2007, 03/16/2002 Hepatitis B Vaccines Completed 05/04/2013, 12/09/2012, 11/11/2012 Zoster Vaccines Completed 11/01/2019, 04/16, 12/03/2018, Additional history exists Pneumococcal vaccine (50+ years) Completed 05/02/2022, 02/03/2014, 05/08/2010, Additional history exists RSV vaccine - (32-36 weeks) or 50+ years Completed 01/07/2023 Influenza Vaccine Completed 12/20/2024, , 01/14/2023, Additional history exists IPV Vaccines Aged Out No longer eligi ble based on patient's age to complete this topic Insurance MEDICA MEDICARE Care Teams Cab Station Attendant Relationship Specialty Start Date End Date Elsewhere, Pcp PCP - General 04/04/19
[2025-01-24 22:42] VITALS: BP 170/79; PULSE 96; RESP 20; TEMP 36.2; O2SAT 96; BMI 28.1
--- NOTE | 2025-01-24 23:27 | CRLHL7_ITS ---
For Patients: As a result of the Century Cures Act, medical imaging exams and procedure reports are released immediately into your electronic medical record. You may view this report before your referring provider. If you have questions, please contact your health care provider. INDICATION: Transient alteration of awareness TECHNIQUE: CT Head without i.v. contrast. Coronal and sagittal reformats were obtained. COMPARISON: None FINDINGS: CSF space: Unremarkable for age. Brain: No evidence of mass, acute infarction or hemorrhage is seen. No mass-effect or midline shift is seen. Mild diffuse cortical atrophy is noted. The brain parenchyma is otherwise normal in appearance with preservation of the mooney-white matter junction. Calvarium: The visualized paranasal sinuses are well aerated. The mastoid air cells are clear. The visualized orbits are grossly unremarkable. The calvarium is unremarkable in appearance with no fractures identified. A small right parietal scalp hematoma is noted. IMPRESSION: 1. No evidence of acute infarction, intracranial hemorrhage, or mass-effect seen. Please note that all CT scans at this facility use dose modulation, iterative reconstruction, and/or weight-based dosing when appropriate to reduce radiation dose to as low as reasonably achievable. Dictated by: Christos Moulton MD @ 01/24/2025 23:56:42 (Electronically Signed)
--- NOTE | 2025-01-24 23:27 | CRLHL7_ITS ---
For Patients: As a result of the Century Cures Act, medical imaging exams and procedure reports are released immediately into your electronic medical record. You may view this report before your referring provider. If you have questions, please contact your health care provider. Indication: Weakness and dyspnea. Technique: Two views of the chest. Comparison: Chest x-ray 12/27/2022. Findings/Impression: The heart is not abnormally enlarged. Mediastinal contours are grossly within normal limits. Patchy bibasilar airspace opacification, likely reflecting atelectasis, however mild developing infectious process is not excluded in the appropriate clinical context. No definite pleural effusion. No pneumothorax. No acute osseous abnormality. Dictated by Neto Babcock MD @ 01/24/2025 11:57:05 PM (Electronically Signed)
--- NOTE | 2025-01-24 23:36 | ED_ITS ---
HPI - General Adult General Chief complaint: Dizziness/Vertigo Stated complaint: passing out, dizzy, nauseous Time Seen by Provider: 01/24/25 23:09 Source: patient Mode of arrival: ambulatory Limitations: no limitations History of Present Illness HPI narrative: 79-year-old male presents to the emergency department with a 12 hour history of nonspecific weakness. Patient feeling generally weak, weak in the legs, out of sorts , does not give specifics. He has not had any fevers. No new trauma or injury. He reports that he woke normally at 6:00 a.m. and starting at about 8:00 a.m. has had some gradual weakness. Initially noted that is leg seemed weaker than usual but nonfocal, and certainly was symmetric. He started having some nausea at 9:00 a.m. but no vomiting. He denies any abdominal pain. He had a normal bowel movement earlier today, no bloody stools. He has been urinating normally, denies any dysuria. He has had no recent changes in his medications. He does not take any anticoagulants. His girlfriend called EMS at about 4:00 a.m. and he was evaluated, declined transport at that time. Daughter came home at about 530 noted him to be weak. He seems sleepy or the usual, refused to eat his dinner, prompting her to bring him to the ED this evening. Unfortunately was quite busy in the did have about a 2 hour wait prior to being seen. On review systems, he does feel like his breathing is a little bit different and daughter notes that it seems a little raspy and labored. No productive cough. Patient endorses some dyspnea on exertion but he is very vague in his description and attempts to redirect to clarify did not improve my understanding. No recent sick contacts, no pertinent travel of, no recent changes to medications. Denies any focal neurological changes or stroke-like symptoms. No difficulty speaking. Denies dizziness for me. No vertigo. Does just feel generally weak and unwell. No prior history of similar symptoms, no hospitalizations in the last few years. No chest pain or palpitations. Daughter reports that he had a heart attack when she was very young but it does not sound like he had stents or bypass surgery. ROS is notable for the generalized symptoms as above, otherwise denies times 12 systems, very nonspecific today. Past medical history is pertinent for diabetes, hypertension, prior coronary artery disease, hyperlipidemia. No recent surgery. Nonsmoker. Related Data Home Medications ?Medication ?Instructions ?Recorded ?Confirmed amlodipine 10 mg tablet 10 mg PO DAILY 10/31/2201/14 atorvastatin 40 mg tablet 40 mg PO DAILY 10/31/2201/14 Held on 12/30/22. Instructions: Resume on 02/06/23. lisinopril 20 1 tab PO DAILY 10/31/2201/14 mg-hydrochlorothiazide 25 mg tablet blood sugar diagnostic (Accu-Chek #10 ea 11/03/2212/16 SmartView Test Strips) glipizide 10 mg tablet, extended 10 mg PO DAILY 01/14/24 release 24 hr Held on 01/01/23. Instructions: per pt report metformin 500 mg tablet,extended 2,000 mg PO QPM 11/0301/24/25 release 24 hr pen needle, diabetic 32 gauge x #1,200 ea 11/03/22 (BD Ida 2nd Gen Pen Needle) pioglitazone 30 mg tablet 30 mg PO DAILY 11/03/2201/14 cholecalciferol (vitamin D3) 25 25 mcg PO DAILY 01/24/25 mcg (1,000 unit) tablet Previous Rx's ?Medication ?Instructions ?Recorded insulin glargine 100 unit/mL (3 65 unit (0.65 mL) subc ut HS #15 mL 12/30/22 mL) subcutaneous pen (Lantus Solostar U-100 Insulin) Allergies Allergy/AdvReac Type Severity Reaction Status Date / Time No Known Drug Allergies Allergy Verified 01/24/25 22:47 [facility] Medical History Sleep apnea ?G47.30 - Sleep apnea, unspecified (ICD-10) Mixed hyperlipidemia ?E78.2 - Mixed hyperlipidemia (ICD-10) Hypertension associated with diabetes ?E11.59 - Type 2 diabetes mellitus with other circulatory complications (ICD- 10) ?I15.2 - Hypertension secondary to endocrine disorders (ICD-10) Diabetes ?E11.9 - Type 2 diabetes mellitus without complications (ICD-10) Surgical History Status post ORIF of fracture of ankle (11/05/22) ?Z98.890 - Other specified postprocedural states (ICD-10) ?Z87.81 - Personal history of (healed) traumatic fracture (ICD-10) Family History Father Lung cancer Mother Diabetes Brother Diabetes Sister Diabetes Social History Narrative: He lives with Bernarda-Life partner near [facility]. He reports this is going well for him. He does not smoke. He drinks occasionally, not every week. Code status is full. Healthcare power of [place] attorney is his daughter, Radha Leon, lives next door to him. What is your current living situation?: I presently have a place to live Problems where you live: no known problems Problems where you live details: none to report In the past 12 months, utilities in danger of being shut off: no In past 12 months, lack of transportation kept you from medical appts, meetings, work, or getting things needed for daily living: no In the past 12 mos, have been you worried that your food would run out before you had money to buy more?: never true In the past 12 mos, the food you bought just didn't last and you didn't have money to buy more?: never true Highest level of school completed/degree received: high school graduate Smoking Status: Never smoker Do you use any of these nicotine containing products: None Second hand tobacco smoke exposure: No How often do you have a drink containing alcohol: monthly or less Alcohol type: beer How many standard drinks containing alcohol do you have on a typical day: 1 or 2 How often do you have six or more drinks on one occasion: Never AUDIT-C Alcohol total score: 1 Non-prescribed substance use: denies use Caffeine: Yes How often does anyone, including family, friends and others, physically hurt you : never How often does anyone, including family, friends and others, insult or talk down to you: never How often does anyone, including family, friends and others, threaten you with harm: never How often does anyone, including family, friends and others, scream or curse at you: never service: Yes Exam Const: Vital Signs, click to edit/add: Vital Signs - 24 hr 01/24/25 22:42 01/25/25 00:00 01/25/25 00:05 Temperature 97.2 F L Pulse Rate 79 72 Pulse Rate [Pulse Oximeter] 96 Respiratory Rate 20 14 16 Blood Pressure Blood Pressure [Ri ght Upper Arm] 170/79 H Pulse Oximetry 96 83 L 88 Oxygen Delivery Me thod Room Air Room Air Nasal Cannula Oxygen Flow Rate 5 01/25/25 00:10 01/25/25 01:00 Temperature 98.0 F Pulse Rate 74 Pulse Rate [Pulse Oximeter] Respiratory Rate 14 Blood Pressure 125/70 Blood Pressure [Ri ght Upper Arm] Pulse Oximetry 97 97 Oxygen Delivery Me thod OxyMask OxyMask Oxygen Flow Rate 96 7 Documenting provider has reviewed patient's vital signs: yes Common normals: no apparent distress and alert General appearance: cooperative and well kempt HENMT: Common normals: normocephalic, moist oral mucous membranes and oropharynx normal Head and scalp: normocephalic Face and sinus: normal facial exam Mouth: oral and palatal mucosa normal Throat: posterior oropharynx normal Eye: Common normals: PERRL, EOMs intact bilaterally and conjunctivae normal General eye: normal appearance of both eyes Conjunctiva: conjunctiva(e) normal Pupil: PERRL Neck & C-Spine: Common normals: full ROM and no lymphadenopathy General: normal visual inspection Resp: Common normals: normal respiratory effort, no use of accessory muscles and clear to auscultation bilaterally Effort & inspection: able to speak in complete sentences Auscultation: clear to auscultation bilaterally Cardio: Common normals: regular rate, regular rhythm, S1 normal heart sound, S2 normal heart sound and no murmurs Rate: regular rate Rhythm: regular rhythm Heart sounds: S1 normal and S2 normal GI: Common normals: Normal to inspection, nondistended, normoactive bowel sounds present, soft to palpation, non-tender, no hepatosplenomegaly and no masses Palpation: soft and no hepatosplenomegaly Back & Pelvis: Common normals: thoracic and lumbar spine normal to inspection Extremity: Common normals: normal to inspection and normal capillary refill Other: Trace pitting bilateral edema, and symmetric Neuro: Common normals: CN's II-XII intact bilaterally and moves all extremities Sensorium/orientation: alert Other: Speech is a little slow, insight seems fair. Psych: Appearance: well kempt Attitude: calm Activity/motor behavior: psychomotor slowing Speech: slow Mood and affect: euthymic mood Insight: fair Judgement: fair Skin: Common normals: no rashes or lesions noted General skin exam: no rashes or lesions noted Course Course ED Course: 79-year-old male with generalized nonspecific weakness. Differential diagnosis including CVA, sepsis, infection, electrolyte abnormality, acidosis, viral illness, neuromuscular disorder, acute cardiac process, amongst many others. Will start with head CT, EKG, cardiac monitor technician and troponins, electrolytes, CBC, infectious and inflammatory workup, chest x-ray. No initial treatments but await findings. Reevaluation(s) Time of Reevaluation #1: 01:35 Reevaluation #1: Counseled patient and family on findings. Labs show that the blood sugar is quite elevated, but there isn't any sign of acidosis associated with this. Lactate is elevated likely secondary to dehydration, weakness, use of metformin but mainly his infection. He is not exhibiting any signs of hypotension or tachycardia that make me think he is truly septic. Unfortunately his oxygen saturations plummeted pretty quickly when he fell asleep. There certainly could be a little bit of underlying sleep apnea but I think that this respiratory infection easily seen on chest x-ray is contributing as well. He is also requiring 2 assist to transfer right now which is certainly not his baseline. The CT does not show any obvious signs of stroke and is findings are really nonfocal, I think the main factor here is his pneumonia driving this dehydration which has led to hyperglycemia and his overall weakness. I think that we should put him in the hospital and get more information regarding this hypoxia, will start Rocephin and azithromycin. Will give 10 units of subQ insulin to start treating the hyperglycemia. 1 L of IV fluid over 2 hours, will call hospitalist team to admit. Update: Hospitalist team has accepted admission Vital Signs Vital signs: Initial Vital Signs Temperature 97.2 F L 01/24/25 22:42 Temperature Source Temporal Artery Scan 01/24/25 22:42 Pulse Rate 96 01/24/25 22:42 Respiratory Rate 20 01/24/25 22:42 Blood Pressure 170/79 H 01/24/25 22:42 Blood Pressure Mean 109 H 01/24/25 22:42 Blood Pressure Position Sitting 01/24/25 22:42 Pulse Oximetry 96 01/24/25 22:42 Oxygen Delivery Method Room Air 01/24/25 22:42 Vital Signs Temperature 97.2 F L 01/24/25 22:42 Pulse Rate 96 01/24/25 22:42 Respiratory Rate 20 01/24/25 22:42 Blood Pressure 170/79 H 01/24/25 22:42 Pulse Oximetry 96 01/24/25 22:42 Oxygen Delivery Method Room Air 01/24/25 22:42 Temperature 98.0 F 01/25/25 01:00 Pulse Rate 74 01/25/25 01:00 Respiratory Rate 14 01/25/25 01:00 Blood Pressure 125/70 01/25/25 01:00 Pulse Oximetry 97 01/25/25 01:00 Oxygen Delivery Method OxyMask 01/25/25 01:00 Oxygen Flow Rate 7 01/25/25 01:00 Medications Administered Medications: Generic Name Dose Route Start Last Admin Trade Name Freq PRN Reason Stop Dose Admin Sodium Chloride 1,000 mls @ 500 mls/hr 01/25/25 00:54 01/25/25 00:55 0.9 % Sodium Chloride 1000 Ml IV 01/25/25 02:53 500 mls/hr .Q2H CARLOS Administration Discontinued Medications Generic Name Dose Route Start Last Admin Trade Name Freq PRN Reason Stop Dose Admin Ceftriaxone Sodium 1 gm/ 100 mls @ 200 mls/hr 01/25/25 01:37 01/25/25 01:59 Sodium Chloride IVPB 01/25/25 01:38 200 mls/hr ONCE ONE Administration Insulin Aspart 10 unit 01/25/25 01:37 01/25/25 02:20 Insulin Aspart 100 Unit/Ml SUBCUT 01/25/25 01:38 10 unit ONCE ONE Administration Medical Decision Making Lab Data Lab results reviewed: Yes I reviewed the patient's lab results Lab results narrative: No significant leukocytosis, hemoglobin is stable. Has hyperglycemia but no signs of acidosis. Inflammatory markers are negative. Glucose in the urine likely secondary to hyperglycemia and viral swabs negative. Troponin negative. Repeat lactate improved with fluids Labs: Lab Results 01/24/25 01/25/25 01/25/25 Range/Units 23:38 00:05 01:09 WBC 9.08 (4.50-11.00) K/uL RBC 4.50 (4.30-5.90) m/uL Hgb 13.2 L (13.5-17.5) gm/dL Hct 39.1 (37.0-53.0) % MCV 87 (80-100) fL MCH 29 (26-34) pg MCHC 34 (32-36) gm/dL RDW Coeff of Mahendra 14.1 (11.5-15.5) % Plt Count 175 (140-440) K/uL Neut % (Auto) 83.3 H (42.0-72.0) % Lymph % (Auto) 10.9 L (20-44) % [place] % (Auto) 4.4 (0.0-11.0) % Eos % (Auto) 0.0 (0.0-7.0) % Baso % (Auto) 0.2 (0.0-3.0) % Neut # (Auto) 7.60 H (1.7-7.0) K/uL Lymph # (Auto) 1.00 (0.90-2.90) K/uL [place] # (Auto) 0.40 (0.00-0.90) K/UL Eos # (Auto) 0.00 (0.00-0.50) K/uL Baso # (Auto) 0.02 (0.00-0.30) K/uL Abs Immat Gran (auto) 0.11 (0.00-0.30) K/uL Imm/Tot Granulo (auto) 1.2 % VBG pH 7.349 (7.32-7.43) VBG pCO2 49 (40-50) mmHG VBG pO2 35.4 (25-47) mmHG VBG HCO3 27 (21-28) mmol/L Sodium 133 L (135-149) mmol/L Potassium 4.0 (3.6-5.1) mmol/L Chloride 90 L (96-114) mmol/L Carbon Dioxide 26 (20-32) mmol/L Anion Gap 17 H (7-15) mEq/L BUN 28 (7-30) mg/dL Creatinine 0.9 (0.5-1.5) mg/dL Estimated Creat Clear 58.92 Estimated GFR 86 ml/min Glucose 378 H* (60-115) mg/dL Lactate 4.3 H* (0.5-1.9) mmol/L Calcium 8.7 (8.4-10.6) mg/dL Total Bilirubin 1.3 (0.1-1.5) mg/dL AST 30 (12-35) U/L ALT 46 (4-50) U/L Alkaline Phosphatase 69 (40-150) U/L Total Creatine Kinase 92 (54-186) U/L C-Reactive Protein < 0.5 L (0.5-1.0) mg/dL NT-Pro-B Natriuret Pep 209 (See Note) pg/mL Total Protein 7.3 (6.0-8.3) g/dL Albumin 4.4 (3.3-5.0) g/dL Procalcitonin 0.07 (<0.50) ng/mL Urine Color Yellow (Yellow) Urine Appearance Clear (Clear) Urine pH 5.0 (5.0-8.5) Ur Specific [place] 1.020 (1.000-1.030) Urine Protein Trace A (Negative) Urine Glucose (UA) 2+ A (Negative) Urine Ketones Negative (Negative) Urine Blood Trace-intact A (Negative) Urine Nitrite Negative (Negative) Urine Bilirubin Negative (Negative) Urine Urobilinogen 0.2 (0.2-1.0) Ur Leukocyte Esterase Negative (Negative) Urine RBC 0-2 (0-2) Urine WBC 0-2 (0-5) Ur Squamous Epith Cells Few (None-Few) Urine Bacteria Few A (None) SARS-CoV-2 (PCR) Negative SARS-CoV-2 (Negative) Influenza Type A (PCR) Negative PCR FLU A (Negative) Influenza Type B (PCR) Negative PCR FLU B (Negative) RSV (PCR) Negative PCR RSV (Negative) Lab Acknowledgement Test Added POC Troponin I 0.03 (0.01-0.04) ng/ml 01/25/25 Range/Units 02:00 WBC (4.50-11.00) K/uL RBC (4.30-5.90) m/uL Hgb (13.5-17.5) gm/dL Hct (37.0-53.0) % MCV (80-100) fL MCH (26-34) pg MCHC (32-36) gm/dL RDW Coeff of Mahendra (11.5-15.5) % Plt Count (140-440) K/uL Neut % (Auto) (42.0-72.0) % Lymph % (Auto) (20-44) % [place] % (Auto) (0.0-11.0) % Eos % (Auto) (0.0-7.0) % Baso % (Auto) (0.0-3.0) % Neut # (Auto) (1.7-7.0) K/uL Lymph # (Auto) (0.90-2.90) K/uL [place] # (Auto) (0.00-0.90) K/UL Eos # (Auto) (0.00-0.50) K/uL Baso # (Auto) (0.00-0.30) K/uL Abs Immat Gran (auto) (0.00-0.30) K/uL Imm/Tot Granulo (auto) % VBG pH (7.32-7.43) VBG pCO2 (40-50) mmHG VBG pO2 (25-47) mmHG VBG HCO3 (21-28) mmol/L Sodium (135-149) mmol/L Potassium (3.6-5.1) mmol/L Chloride (96-114) mmol/L Carbon Dioxide (20-32) mmol/L Anion Gap (7-15) mEq/L BUN (7-30) mg/dL Creatinine (0.5-1.5) mg/dL Estimated Creat Clear Estimated GFR ml/min Glucose (60-115) mg/dL Lactate 2.2 H (0.5-1.9) mmol/L Calcium (8.4-10.6) mg/dL Total Bilirubin (0.1-1.5) mg/dL AST (12-35) U/L ALT (4-50) U/L Alkaline Phosphatase (40-150) U/L Total Creatine Kinase (54-186) U/L C-Reactive Protein (0.5-1.0) mg/dL NT-Pro-B Natriuret Pep (See Note) pg/mL Total Protein (6.0-8.3) g/dL Albumin (3.3-5.0) g/dL Procalcitonin (<0.50) ng/mL Urine Color (Yellow) Urine Appearance (Clear) Urine pH (5.0-8.5) Ur Specific [place] (1.000-1.030) Urine Protein (Negative) Urine Glucose (UA) (Negative) Urine Ketones (Negative) Urine Blood (Negative) Urine Nitrite (Negative) Urine Bilirubin (Negative) Urine Urobilinogen (0.2-1.0) Ur Leukocyte Esterase (Negative) Urine RBC (0-2) Urine WBC (0-5) Ur Squamous Epith Cells (None-Few) Urine Bacteria (None) SARS-CoV-2 (PCR) (Negative) Influenza Type A (PCR) (Negative) Influenza Type B (PCR) (Negative) RSV (PCR) (Negative) Lab Acknowledgement POC Troponin I (0.01-0.04) ng/ml Imaging Data CT scan - head: Attestation: I have reviewed the pertinent imaging results. My impression: Degenerative changes but no obvious signs of intracranial hemorrhage. Radiologist's impression: FINDINGS: CSF space: Unremarkable for age. Brain: No evidence of mass, acute infarction or hemorrhage is seen. No mass-effect or midline shift is seen. Mild diffuse cortical atrophy is noted. The brain parenchyma is otherwise normal in appearance with preservation of the mooney-white matter junction. Calvarium: The visualized paranasal sinuses are well aerated. The mastoid air cells are clear. The visualized orbits are grossly unremarkable. The calvarium is unremarkable in appearance with no fractures identified. A small right parietal scalp hematoma is noted. IMPRESSION: 1. No evidence of acute infarction, intracranial hemorrhage, or mass-effect seen. Please note that all CT scans at this facility use dose modulation, iterative reconstruction, and/or weight-based dosing when appropriate to reduce radiation dose to as low as reasonably achievable. Dictated by: Christos Moulton MD @ 01/24/2025 23:56:42 Chest x-ray: Attestation: I have reviewed the pertinent imaging results. Radiologist's impression: Chest x-ray 12/27/2022. Findings/Impression: The heart is not abnormally enlarged. Mediastinal contours are grossly within normal limits. Patchy bibasilar airspace opacification, likely reflecting atelectasis, however mild developing infectious process is not excluded in the appropriate clinical context. No definite pleural effusion. No pneumothorax. No acute osseous abnormality. Dictated by Neto Babcock MD @ 01/24/2025 11:57:05 PM ECG Data Attestation: I personally reviewed and interpreted this ECG as follows: Prior ECG tracings: available for review (Comparison November 05) Interpretation: Sinus rhythm with some PVCs. Inferior changes are unchanged from 11/05. Intervals and axis appear otherwise normal. No new ST or T-wave abnormalities in comparison to prior EKGs. Stable EKG. Discharge Plan Discharge Clinical Impression: Respiratory failure with hypoxia, Pneumonia, Acute hyperglycemia, Weakness Patient Disposition: Admitted As Inpatient Procedures ABG Interpretation ABG Results: 01/25/25 00:05 VBG pH 7.349 VBG pCO2 49 VBG pO2 35.4 VBG HCO3 27
[2025-01-24 23:43] LABS: Appearance Urine Clear (Clear)
[2025-01-25] VITALS (23 sets, daily range): BP systolic 118–184; BP diastolic 55–92; PULSE 8–101; RESP 11–18; TEMP 36.6–37; O2SAT 83–97; BMI 34.7
[2025-01-25 00:15] LABS: HCO3 VBG 27 mmol/L (21-28); PCO2 VBG 49 mmHG (40-50); PO2 VBG 35.4 mmHG (25-47); pH VBG 7.349 (7.32-7.43)
[2025-01-25 00:16] LABS: Hematocrit* 39.1 % (37.0-53.0); Hemoglobin* 13.2 gm/dL (13.5-17.5); Immature Granulocytes Abs Auto 0.11 K/uL (0.00-0.30); Immature Granulocytes Pct Auto 1.2 %; Mean Corpuscular HGB Conc 34 gm/dL (32-36); Mean Corpuscular Hemoglobin 29 pg (26-34); Mean Corpuscular Volume 87 fL (80-100); RDW Coefficient of Variation % 14.1 % (11.5-15.5); Red Blood Count* 4.50 m/uL (4.30-5.90); White Blood Count* 9.08 K/uL (4.50-11.00)
[2025-01-25 00:24] LABS: Lymphocytes Absolute Auto 1.00 K/uL (0.90-2.90); Slide Review Reflex No
[2025-01-25 00:27] LABS: Lactate Sepsis w/Reflex* 4.3 mmol/L (0.5-1.9)
--- OUTSIDE RECORDS SUMMARY | 2025-01-25 00:35 | XMS_ITS | Clinical Summary ---
Author Organization [employer] [facility] Address [address] [place] [id number] Care Team Providers Care Drill Rig Operator Name Role Phone Tavo Nix MD Primary [...] 3 09/24/19 25 Active FreeStyle Tabitha 3 [place] for continuous blood glucose monitor (CGM)Indications :Diabetes mellitus without complication (HC) To be used to read blood sugars follow field reporter directions. 1 Each 10/11/19 25 Active pen [...] be used to read blood sugars, follow field reporter directions. Change each sensor every 15 days. 6 Each 3 01/17/20 25 Active FreeStyle Tabitha 3 Plus Sensor for continuous blood glucose monitor (CGM)Indications :Diabetes mellitus without complication (HC) To be used to read blood sugars, follow field reporter directions. Change each sensor every 15 days. [...] Type Department Care Team Description 01/17/2025 Telephone [facility] [address] [place] [address] Tavo Nix MD Form 01/16/2025 Telephone [facility] [address] [place] [address] Tavo Nix MD Medication Management (Per patient is stating per Pharmacy insurance is not wanting to pay for Rx:FreeStyle Tabitha 3 Plus Sensor for continuous blood glucose monitor (CGM) ) 12/20/2024 8:00 AM CDT Office Visit [facility] [address] [place] [address] Tavo Nix MD Diabetes (3 month follow up); Follow Up (Bilateral hip pain and shoulder pain, not getting better) 12/20/[address] [address] Tavo Nix MD Results 12/20/2024 Travel 12/08/2024 10:00 AM CDT Patient Outreach [address] [phone] Maddie Corral RN Diabetes (Follow-up medication management/CGM download) 12/08/2024 Refill [facility] [address] [place] [address] Tavo Nix MD Refill Request (Glipizide ER 5mg tablets) 12/08/2024 Travel 11/24/2024 Telephone [facility] [address] [place] [address] Tavo Nix MD Medication Management (Refill needed today for Rx:FreeStyle Tabitha 3 Plus Sensor for continuous blood glucose monitor (CGM)) 11/21/2024 10:00 AM CDT Patient Outreach [address] [phone] Maddie Corral RN Diabetes (F/u, download Tabitha CGM) 11/21/2024 Travel 11/01/2024 Nurse Triage [facility] [address] [place] [address] Tavo Nix MD High Blood Sugar 11/01/[address] [phone] Maddie Corral process designer Problem (discuss supplies) 10/28/2024 11:00 AM CDT Patient Outreach [address] [phone] Maddie Corral applications support analyst (Tabitha 3 CGM training) 10/28/2024 Travel from Last 3 Months Immunizations Immunization Administration Dates Next Due COVID-19 VACCINE SPIKEVAX (M ODERNA 50MCG/0.5ML) 12YO+ PFS 09/19/2024,06/09/2023 COVID-19 vaccine ([employer] NTech 30mcg/0.3mL) 12YO+ TOYA-SUCROSE PF, MDV 08/19/2021 COVID-19 vaccine ([employer] NTech 30mcg/0.3mL) PF, MDV 06/15/2020,05/25/2020 Hepatitis B [...] on file 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 Gender Identity Not on file Sexual Orientation [...] st Contact Info) Description 03/22/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 Office Visit [facility] [address] [place] [address] Tavo Nix MD [address] [place] [address] Health Maintenance Due Date Last Done Comments [...] URINE 179.0 mg/L 12/20/2024 4:06 PM CDT [facility] TRAL LABORATORY CREATININE,URIN E 1.53 g/L 12/20/2024 4:06 PM CDT [facility] TRA LABORATORY ALBUMIN TO CREATININE RATIO,RAND UR 117.0(H) <30.0 mg/g creat 12/20/2024 4:06 PM CDT [facility] TRAL [facility] Urine URINE SPECIMEN / Unknown Non-Blood / Unknown 12/20/2024 8:44 AM CDT 12/20/2024 8:44 AM CDT Narrative [facility] - 12/20/2024 4:06 PM CDT If Albumin to Creatinine Ratio is elevated, consider the following: Elevations seen with incipient nephropathy associated with diabetes mellitus or hypertension. Stress, exercise,hematuria, and urinary tract infection may also produce elevated results. If clinically indicated, confirm with 24 Hour Albumin to Creatinine Ratio. us Tavo Nix MD URINE Final Result [facility] [address] [place] [address], [place] * (ABNORMAL) HEMOGLOBIN A1C MONITORING (POCT) (12/20/2024 8:44 AM CDT) Pathologist [facility] POC HEMOGLOBIN A1C 7.9(H) <6.0 % OF TOTAL HGB 12/20/2024 8:56 AM CDT [facility] Comment: Any point of care results exhibiting inconsistency with the patient's clinical status should be repeated using a different testing method. Blood BLOOD SPECIMEN / Unknown [facility] / Unknown 12/20/2024 8:44 AM CDT 12/20/2024 8:44 AM CDT Narrative [facility] - 12/20/2024 8:56 AM CDT FASTING:NO FASTING: NO us Tavo Nix MD CHEMISTRY Final Result [facility] [address] [phone], [place] [phone] [facility] [address] [place] [address], from Last [address] [place] [address] [employer] MR PB ONLY Care Teams Drill Rig Operator Relationship Specialty Start Date End Date Tavo Nix MD [address] [place] [address] PCP - General 09/29/05
[2025-01-25 00:36] LABS: Troponin, Point-of-Care* 0.03 ng/ml (0.01-0.04)
--- OUTSIDE RECORDS SUMMARY | 2025-01-25 00:36 | XMS_ITS | Clinical Summary ---
Author Organization [facility] Address [address] [place] [id number] Care Team Providers Care Manager Unix Name Role Phone Elsewhere, Pcp Primary Care Provider Unavailabl e Source Comments Patient records contain information from all sites at [facility]. For routine questions regarding patient records, call [phone] during business hours, M-F 8:00 AM - 5:00 PM Central Time. Record requests for emergency care only can be directed to [phone] at any time[address] Allergies No known active allergies Medications aspirin [...] Department Care Team Description 01/19/2025 8:45 AM RADIOGRAPHY TECHNICIAN Clinical Support Department of Rehabilitation Services in [address] [phone] Tavo Nix II, M.D. Buchholtz, Marie F P.TJr, D.P.T. Pain Hip Bilateral 01/09/2025 9:45 AM CDT Clinical Support Department of Rehabilitation Services in [address] [phone] Tavo Nix II, M.D. Buchholtz, Marie F, P.TJr, D.P.T. Pain Hip Bilateral 01/05/2025 8:45 AM CDT Clinical Support Department of Rehabilitation Services in [address] [phone] Tavo Nix II, M.D. Buchholtz, Marie F, P.T., D.P.T. Pain Hip Bilateral 12/22/2024 7:45 AM CDT Comprehensive Visit Department of Rehabilitation Services in [address] [phone] Tavo Nix II, M.D. Buchholtz, Marie F P.T., D.P.T. Pain Hip Bilateral (Primary Dx) from Last 3 Months Immunizations Immunization Administration Dates Next Due PPSV23 03/16/2009 Td (Adult), adsorbed 03/16/2002 Social History Tobacco Use Types Packs/Day Years Used Date Smoking Tobacco: Never Sex and Gender Information Value Date Recorded Sex Assigned at Not on file Legal Sex Male 8:35 AM RADIOGRAPHY TECHNICIAN Gender Identity Not on file Sexual Orientation Not on file Last Filed Vital Signs Vital Sign Reading Time Taken Comments Blood Pressure 126/66 03/13/2018 11:30 AM RADIOGRAPHY TECHNICIAN Pulse 79 03/13/2018 11:30 AM RADIOGRAPHY TECHNICIAN Temperature 36.3 C (97.3 F) 03/13/2018 11:30 AM RADIOGRAPHY TECHNICIAN Respiratory Rate 18 03/13/2018 11:30 AM RADIOGRAPHY TECHNICIAN Oxygen Saturation 97% 03/13/2018 11:30 AM RADIOGRAPHY TECHNICIAN Inhaled Oxygen Concentration - - Weight 97 kg (213 lb 13.5 oz) 03/13/2018 11:27 A M RADIOGRAPHY TECHNICIAN Height - - Body Mass Index - - Plan of Treatment Upcoming Encounters Date Type Department Care Team (Late st Contact Info) Description 01/27/2025 9:00 AM RADIOGRAPHY TECHNICIAN Clinical Support Department of Rehabilitation Services in [address] [phone] Tavo Nix II, M.D. [address] [place] [phone] Ania Ward P.T., D.P.T. 02/10/2025 9:45 AM RADIOGRAPHY TECHNICIAN Clinical Support Department of Rehabilitation Services in [address] [phone] Tavo Nix II, M.D. [address] [place] [phone] Ania Ward, P.T., D.P.T. Health Maintenance Due [...] this topic Insurance [employer] MED[employer]ARE Care Teams Manager Unix Relationship Specialty Start Date End Date Elsewhere, Pcp PCP - General 04/04/19
[2025-01-25 00:49] LABS: Alanine Aminotransferase* 46 U/L (4-50); Alkaline Phosphatase* 69 U/L (40-150); Aspartate Amino Transferase* 30 U/L (12-35); Bilirubin Total* 1.3 mg/dL (0.1-1.5); Blood Urea Nitrogen* 28 mg/dL (7-30); Carbon Dioxide* 26 mmol/L (20-32); Creatinine* 0.9 mg/dL (0.5-1.5); Est. Creatinine Clearance* 58.92; Estimated Glomerular Filt Rate 86 ml/min; Total Protein* 7.3 g/dL (6.0-8.3)
[2025-01-25 00:50] LABS: Calcium* 8.7 mg/dL (8.4-10.6)
[2025-01-25 00:55] LABS: PCR FLU A Negative PCR FLU A (Negative); PCR FLU B Negative PCR FLU B (Negative); PCR RSV Negative PCR RSV (Negative); SARS PCR* Negative SARS-CoV-2 (Negative)
[2025-01-25 00:57] LABS: Glucose* 378 mg/dL (60-115)
[2025-01-25 01:00] LABS: NT Pro B Type NatriureticPept* 209 pg/mL (See Note)
[2025-01-25 01:01] LABS: Albumin* 4.4 g/dL (3.3-5.0); Anion Gap 17 mEq/L (7-15); Chloride* 90 mmol/L (96-114); Potassium* 4.0 mmol/L (3.6-5.1); Sodium* 133 mmol/L (135-149)
[2025-01-25 01:06] LABS: Procalcitonin* 0.07 ng/mL (<0.50)
[2025-01-25 01:28] LABS: Creatine Kinase* 92 U/L (54-186)
[2025-01-25] MEDS: cefTRIAXone 1 GM in 0.9 % SODIUM CHLORIDE Mini-bag 100 ML IVPB (01:59)
--- NOTE | 2025-01-25 02:04 | W.PM.TELEH&P ---
Telehealth- H&P: HPI History of Present Illness Time Seen by Provider: 03:40 Date Seen: 01/25/25 Chief complaint: passing out, dizzy, nauseous Narrative: Alberto Rosenthal is seen as an Interactive Telehealth visit. Alberto Rosenthal is a 79 year old male with past medical history of mild hypertension, diabetes mellitus type 2, hyperlipidemia, CARLOS noncompliant with CPAP who presents to the emergency department for evaluation of generalized weakness. Patient's daughter is at bedside and assists with some of the history. Upon waking yesterday morning, noticed that both of his legs felt heavier than normal, associated with weakness and difficulty lifting his legs, with noticeable slapping of his feet on the ground, which is new for him. He reports chronic back pain, with some new worsening, but denies any point tenderness or associated bowel/bladder incontinence or numbness. His daughter noticed that he had poor appetite and refused to eat all day. Today in the ED, she notices he's been having some mild orthopnea which improves with repositioning. Patient further denies any recent fever, chills, change in chronic night sweats, nausea, vomiting, change in urinary or bowel habits, cough , SOB, sick contacts, lower extremity swelling, recent medication changes. Of note, patient was diagnosed with CARLOS at least 1 year ago, started on CPAP but decide he would stop using it due to not being able to tolerate it overnight. He followed up with the prescribing doctor who he states recommended that he try a different therapy, however patient never followed up again to start this new treatment. Otherwise denies any other complaints at this time. ED course: -Vital signs on presentation significant for: 170/79 -Initial laboratory evaluation significant for: Hgb 13.2, AG 17, BG 378, lactic acid 4.3, UA (-) for infection, respiratory viral panel (-), troponin (-) Chest Xray revealed: patchy bibasilar airspace opacification, likely reflecting atelectasis, however no definitive infectious process not excluded. No pleural effusion, pneumothorax, or acute osseous abnormality, or acute osseous abnormality CT head revealed: negative for acute intracranial processes Therapies provided in the emergency department included: ceftriaxone, azithromycin, insulin 10 units Review of Systems Status of ROS: Reports: 10 or more systems reviewed and unremarkable except as noted in History and below [facility] Medical History Sleep apnea ?G47.30 - Sleep apnea, unspecified (ICD-10) Mixed hyperlipidemia ?E78.2 - Mixed hyperlipidemia (ICD-10) Hypertension associated with diabetes ?E11.59 - Type 2 diabetes mellitus with other circulatory complications (ICD-10) ?I15.2 - Hypertension secondary to endocrine disorders (ICD-10) Diabetes ?E11.9 - Type 2 diabetes mellitus without complications (ICD-10) Surgical History Status post ORIF of fracture of ankle (11/05/22) ?Z98.890 - Other specified postprocedural states (ICD-10) ?Z87.81 - Personal history of (healed) traumatic fracture (ICD-10) Family History Father Lung cancer Mother Diabetes Brother Diabetes Sister Diabetes Social History Narrative: He lives with Bernarda-Life partner [place] [email or web address]. He reports this is going well for him. He does not smoke. He drinks occasionally, not every week. Code status is full. Healthcare power of criminal attorney is his daughter, Radha Leon, lives next door to him. What is your current living situation?: I presently have a place to live Problems where you live: no known problems Problems where you live details: none to report In the past 12 months, utilities in danger of being shut off: no In past 12 months, lack of transportation kept you from medical appts, meetings, work, or getting things needed for daily living: no In the past 12 mos, have been you worried that your food would run out before you had money to buy more?: never true In the past 12 mos, the food you bought just didn't last and you didn't have money to buy more?: never true Highest level of school completed/degree received: high school graduate Smoking Status: Never smoker Do you use any of these nicotine containing products: None Second hand tobacco smoke exposure: No How often do you have a drink containing alcohol: monthly or less Alcohol type: beer How many standard drinks containing alcohol do you have on a typical day: 1 or 2 How often do you have six or more drinks on one occasion: Never AUDIT-C Alcohol total score: 1 Non-prescribed substance use: denies use Caffeine: Yes How often does anyone, including family, friends and others, physically hurt you: never How often does anyone, including family, friends and others, insult or talk down to you: never How often does anyone, including family, friends and others, threaten you with harm: never How often does anyone, including family, friends and others, scream or curse at you: never service: Yes Meds Home Medications and Allergies Home Medications ?Medication ?Instructions ?Recorded ?Confirmed ?Type amlodipine 10 mg tablet 10 mg PO DAILY 10/31/22 01/24/25 History atorvastatin 40 mg tablet 40 mg PO DAILY 10/31/22 01/24/25 History Held on 12/30/22. Instructions: Resume on 02/06/23. lisinopril 20 1 tab PO DAILY 10/31/22 01/24/25 History mg-hydrochlorothiazide 25 mg tablet blood sugar diagnostic (Accu-Chek #10 ea 11/03/22 01/14/24 History SmartView Test Strips) glipizide 10 mg tablet, extended 10 mg PO DAILY 11/03/22 01/14/24 History release 24 hr Held on 01/01/23. Instructions: per pt report metformin 500 mg tablet,extended 2,000 mg PO QPM 11/03/22 01/24/25 History release 24 hr pen needle, diabetic 32 gauge x #1,200 ea 11/03/22 01/14/24 History 5/32 (BD Ida 2nd Gen Pen Needle) pioglitazone 30 mg tablet 30 mg PO DAILY 11/03/22 01/24/25 History cholecalciferol (vitamin D3) 25 25 mcg PO DAILY 12/26/22 01/24/25 History mcg (1,000 unit) tablet insulin glargine 100 unit/mL (3 65 unit (0.65 mL) subcut HS #15 mL 12/30/22 01/24/25 Rx mL) subcutaneous pen (Lantus Solostar U-100 Insulin) Allergies Allergy/AdvReac Type Severity Reaction Status Date / Time No Known Drug Allergies Allergy Verified 01/24/25 22:47 Exam Narrative Exam Narrative: Physical Exam GENERAL: ?vital signs reviewed, well developed and nourished, in no distress HEENT: pupils are equal round and reactive to light, extraocular movements are grossly within normal limits and oral mucosa is moist. NECK: Supple without lymphadenopathy or thyromegaly according to nursing staff examination observation HEART: Regular rate and rhythm without any rubs, murmurs, or gallops. LUNGS: Clear to auscultation bilaterally with good air movement throughout ABDOMEN: Observation from nurse assisted exam, abdomen appears soft, nontender, and nondistended with Positive bowel sounds noted. EXTREMITIES: Strength and sensation is observed to be grossly within normal limits in the upper and lower extremities.? No focal strength deficit is observed. SKIN:? Observed warm and dry with color normal Const Vital Signs, click to edit/add: Vital Signs - 24 hr 01/24/25 22:42 01/25/25 00:00 01/25/25 00:05 Temperature 97.2 F L Pulse Rate 79 72 Pulse Rate [Pulse Oximeter] 96 Respiratory Rate 20 14 16 Blood Pressure Blood Pressure [Right Upper Arm] 170/79 H Pulse Oximetry 96 83 L 88 Oxygen Delivery Method Room Air Room Air Nasal Cannula Oxygen Flow Rate 5 01/25/25 00:10 01/25/25 01:00 Temperature 98.0 F Pulse Rate 74 Pulse Rate [Pulse Oximeter] Respiratory Rate 14 Blood Pressure 125/70 Blood Pressure [Right Upper Arm] Pulse Oximetry 97 97 Oxygen Delivery Method OxyMask OxyMask Oxygen Flow Rate 96 7 Hospitalist - H&P: Result Labs Labs: Short CBC 01/25/25 Range/Units 00:05 WBC 9.08 (4.50-11.00) K/uL Hgb 13.2 L (13.5-17.5) gm/dL Hct 39.1 (37.0-53.0) % Plt Count 175 (140-440) K/uL BMP 01/25/25 00:05 Sodium 133 L Potassium 4.0 Chloride 90 L Carbon Dioxide 26 BUN 28 Creatinine 0.9 Glucose 378 H* Calcium 8.7 Cardiac Enzymes 01/25/25 Range/Units 00:05 Total Creatine Kinase 92 (54-186) U/L Liver Function 01/25/25 Range/Units 00:05 Total Bilirubin 1.3 (0.1-1.5) mg/dL AST 30 (12-35) U/L ALT 46 (4-50) U/L Alkaline Phosphatase 69 (40-150) U/L Albumin 4.4 (3.3-5.0) g/dL Urine 01/24/25 Range/Units 23:38 Urine Color Yellow (Yellow) Urine Appearance Clear (Clear) Urine pH 5.0 (5.0-8.5) Ur Specific [place] 1.020 (1.000-1.030) Urine Protein Trace A (Negative) Urine Glucose (UA) 2+ A (Negative) Assessment and Plan Assessment and plan (1) Weakness: Status: Acute (2) Acute hyperglycemia: Status: Acute (3) Respiratory failure with hypoxia: Status: Acute Plan 79 year old male with past medical history significant for HTN, DM11, HLD, CARLOS noncompliant with his CPAP, presenting with generalized weakness, found to be hypoxic. # Acute hypoxic respiratory failure # Suspected community acquired pneumonia # History of CARLOS noncompliant w/ CPAP -CXR with possible early PNA v atelectasis -respiratory viral panel negative -obtain CT chest -started on Ceftriaxone and Azithromycin; will continue -currently requiring 7L while sleeping; wean as tolerated -continuous pulse ox -RT eval for sleep study/restart of CPAP # Hyperglycemia in diabetes mellitus II -poor glycemic control vs stress induced -check HgbA1c -ISS with accucheks -continue home long acting # Elevated lactic acid -suspected 2/2 metformin + dehydration + hypoxia; possible infection -initial lactic acid 4.3; repeat trending downwards -hold home metformin -on abx as above/low suspicion for sepsis, patient w/o signs/symptoms of systemic toxicity -continue to monitor # Generalized weakness -head CT negative for acute findings -Respiratory viral panel, UA, troponin all negative -findings as above -check TSH, CK -PT/OT evaluation -fall precautions # Obesity class 1 -BMI 34.7 -diet and lifestyle modifications, weight loss encouraged Other chronic medical conditions: # History of hypertension # History of hyperklipdemia -continue home therapies -maintain outpatient follow upups DVT prophylaxis: lovenox Code status: Full Disposition: Pending clinical improvement and management above. Patient high risk as outlined above Total Time Spent Total Time Spent: >90 minutes Telehealth: Statement Statement Telehealth Visit: Today's History and Physical is provided via interactive telehealth by Natalia Matta MD.? Patient is located at [facility].? Provider is located at [facility].? Nursing staff assisted with the patient's exam. The visit being done today meets criteria for a telehealth visit and the patient or patient?s parent/guardian is aware the visit is a telehealth visit. Camera Start Time: 03:40 Camera End Time: 03:55
[2025-01-25 02:05] LABS: Lactate Sepsis 2 Hour 2.2 mmol/L (0.5-1.9)
[2025-01-25] MEDS: INSULIN ASPART 100 UNIT/ML 10 UNIT SUBCUT (02:20)
[2025-01-25] MEDS: AZITHROMYCIN 500 MG in 0.9 % SODIUM CHLORIDE 250 ml 250 ML 255 MG IVPB (02:41)
[2025-01-25 08:14] LABS: HCO3 VBG 29 mmol/L (21-28); PCO2 VBG 51 mmHG (40-50); PO2 VBG 63.5 mmHG (25-47); pH VBG 7.369 (7.32-7.43)
[2025-01-25 08:17] LABS: Lactate* 1.7 mmol/L (0.5-1.9)
[2025-01-25 08:19] LABS: Hematocrit* 37.1 % (37.0-53.0); Hemoglobin* 12.6 gm/dL (13.5-17.5); Immature Granulocytes Abs Auto 0.03 K/uL (0.00-0.30); Immature Granulocytes Pct Auto 0.4 %; Mean Corpuscular HGB Conc 34 gm/dL (32-36); Mean Corpuscular Hemoglobin 30 pg (26-34); Mean Corpuscular Volume 88 fL (80-100); RDW Coefficient of Variation % 14.2 % (11.5-15.5); Red Blood Count* 4.24 m/uL (4.30-5.90); White Blood Count* 8.04 K/uL (4.50-11.00)
[2025-01-25] MEDS: ATORVASTATIN CALCIUM 40 MG TABLET PO (08:24)
[2025-01-25 08:25] LABS: Lymphocytes Absolute Auto 1.40 K/uL (0.90-2.90)
[2025-01-25] MEDS: AMLODIPINE 10 MG TABLET PO (08:25)
[2025-01-25] MEDS: SODIUM CHLORIDE 0.9 % (FLUSH) 10 ML SYRINGE 5 ML IVF ×2 (08:25→20:55)
[2025-01-25 08:26] LABS: Slide Review Reflex No
[2025-01-25] MEDS: INSULIN ASPART 100 UNIT/ML SUBCUT ×4 (08:26→20:51)
[2025-01-25 08:36] LABS: Chloride* 95 mmol/L (96-114); Sodium* 134 mmol/L (135-149)
[2025-01-25 08:37] LABS: Potassium* 3.5 mmol/L (3.6-5.1)
[2025-01-25 08:39] LABS: Blood Urea Nitrogen* 24 mg/dL (7-30); Creatinine* 0.8 mg/dL (0.5-1.5); Est. Creatinine Clearance* 58.92; Estimated Glomerular Filt Rate 89 ml/min
[2025-01-25 08:40] LABS: Anion Gap 11 mEq/L (7-15); Calcium* 8.4 mg/dL (8.4-10.6); Carbon Dioxide* 28 mmol/L (20-32); Glucose* 165 mg/dL (60-115)
[2025-01-25 08:47] LABS: D Dimer Quantitative* 0.29 ug/ml (0.00-0.50)
--- NOTE | 2025-01-25 11:33 | P.NUTNOTE_ITS ---
Nutrition Progress Note Progress Note Progress Note: RDN with diet education related to diabetic diet order. Patient admitted for hypoxia and pneumonia. Medical history includes mild hypertension, diabetes mellitus type 2, hyperlipidemia, and CARLOS noncompliant with CPAP. His A1C on admission was 8.2%. Current diet is diabetic. No meal intakes recorded yet. Current weight 235 lb (106.81 kg); height 5ft 9in (175.26 cm); BMI 34.7 kg/m2. No significant changes in weight recently. RDN visited with patient and family. Patient reports has seen a religious educator recently in [place] (he reports about 2 weeks ago) and received diet education at that time. He declined diet education today, however educational materials were given to family per their request. Patient and family had no questions or concerns at this time. RDN will continue to monitor.
--- NOTE | 2025-01-25 15:27 | PM.IMPN1 ---
Assessment and Plan Assessment and plan (1) Pneumonia: Problem comment: Treat for community-acquired pneumonia with ceftriaxone and azithromycin. Clinically improving. Status: Acute (2) Respiratory failure with hypoxia: Problem comment: Likely has a component of hypoxic respiratory failure due to sleep apnea as well as acute hypoxia due to pneumonia. Normal proBNP and D-dimer. Status: Acute (3) Acute hyperglycemia: Problem comment: Likely due to his pneumonia. Sliding scale insulin and continue to monitor. When taking oral food and fluid well resume home diabetes medicines Status: Acute (4) Weakness: Problem comment: Likely due to illness. I do not see evidence of a radicular problem or cord compression to suggest a neurologic cause for leg weakness Status: Acute (5) Cognitive impairment: Problem comment: 01/25/2025: [place] score of 20/30 Status: Acute Plan Patient is admitted for hypoxic respiratory failure due to community-acquired pneumonia. Clinically improving today. Anticipate possible discharge to home tomorrow if continued to improve. Total Time Spent Total Time Spent: Total time spent today is 50 minutes in review of outside records, coordination of care, discussion with patient and family and other providers ongoing management of hypoxia, sleep apnea, pneumonia. Subjective Date Seen: 01/25/25 Interval history: Admission HPI: Alberto Rosenthal is seen as an Interactive Telehealth visit. Alberto Rosenthal is a 79 year old male with past medical history of mild hypertension, diabetes mellitus type 2, hyperlipidemia, CARLOS noncompliant with CPAP who presents to the emergency department for evaluation of generalized weakness. Patient's daughter is at bedside and assists with some of the history. Upon waking yesterday morning, noticed that both of his legs felt heavier than normal, associated with weakness and difficulty lifting his legs, with noticeable slapping of his feet on the ground, which is new for him. He reports chronic back pain, with some new worsening, but denies any point tenderness or associated bowel/bladder incontinence or numbness. His daughter noticed that he had poor appetite and refused to eat all day. Today in the ED, she notices he's been having some mild orthopnea which improves with repositioning. Patient further denies any recent fever, chills, change in chronic night sweats, nausea, vomiting, change in urinary or bowel habits, cough , SOB, sick contacts, lower extremity swelling, recent medication changes. Of note, patient was diagnosed with CARLOS at least 1 year ago, started on CPAP but decide he would stop using it due to not being able to tolerate it overnight. He followed up with the prescribing doctor who he states recommended that he try a different therapy, however patient never followed up again to start this new treatment. Otherwise denies any other complaints at this time. ED course: -Vital signs on presentation significant for: 170/79 -Initial laboratory evaluation significant for: Hgb 13.2, AG 17, BG 378, lactic acid 4.3, UA (-) for infection, respiratory viral panel (-), troponin (-) Chest Xray revealed: patchy bibasilar airspace opacification, likely reflecting atelectasis, however no definitive infectious process not excluded. No pleural effusion, pneumothorax, or acute osseous abnormality, or acute osseous abnormality CT head revealed: negative for acute intracranial processes Therapies provided in the emergency department included: ceftriaxone, azithromycin, insulin 10 units Additional history: Patient has diabetes and notes that his blood sugars have been high since he has been here. He does monitor his blood sugar at home but does not take action with abnormal blood sugar readings. He reports he has been having some upper respiratory symptoms, congestion and some cough and dyspnea. He did not volunteer these symptoms but agreed that he had them when I asked. Denied cough and dyspnea at the time of admission. 01/25/2025: Overnight he was receiving 5 L of oxygen per face mask to maintain his O2 sats. This morning he was weaned down to 2 L per nasal cannula and then off of oxygen altogether. To this he has not had any significant dyspnea. He still reports generally feeling well otherwise. He has been treated for community-acquired pneumonia with ceftriaxone and azithromycin. Overall he is feeling better. This morning he had a poor appetite but that has improved as the day has gone on. Exam Narrative: Exam Narrative: He is alert and appears in no distress. He had some difficulty giving details of medical history. Oropharynx with very small airway. Dry mucous membranes. Neck is supple without mass or adenopathy. No stridor. Respirations are clear to auscultation without wheezing rales or rhonchi. He does have diminished breath sounds throughout lung [place]. Cardiovascular: S1, S2, regular rate and rhythm. No murmur gallop or rub. Distant heart sounds. Abdomen: Bowel sounds active. Abdomen is soft, protuberant but nontender. Extremities with 2+ edema slightly more on the right than the left where he had previous ankle surgery. Lower extremity strength testing shows excellent strength testing in hip flexion, knee flexion extension, ankle plantar flexion and dorsiflexion. Intact sensation as well. Const: Vital Signs, click to edit/add: Vital Signs - 24 hr 01/24/25 22:42 01/25/25 00:00 01/25/25 00:05 Temperature 97.2 F L Pulse Rate 79 72 Pulse Rate [Left P ulse Oximeter] Pulse Rate [Pulse Oximeter] 96 Pulse Rate [Right Pulse Oximeter] Respiratory Rate 20 14 16 Blood Pressure Blood Pressure [Ri ght Arm] Blood Pressure [Ri ght Upper Arm] 170/79 H Pulse Oximetry 96 83 L 88 Oxygen Delivery Me thod Room Air Room Air Nasal Cannula Oxygen Flow Rate 5 01/25/25 00:10 01/25/25 01:00 01/25/25 01:21 Temperature 98.0 F Pulse Rate 74 Pulse Rate [Left P ulse Oximeter] Pulse Rate [Pulse Oximeter] Pulse Rate [Right Pulse Oximeter] Respiratory Rate 14 14 Blood Pressure 125/70 Blood Pressure [Ri ght Arm] Blood Pressure [Ri ght Upper Arm] Pulse Oximetry 97 97 Oxygen Delivery Me thod OxyMask OxyMask Oxygen Flow Rate 96 7 01/25/25 01:29 01/25/25 02:00 01/25/25 02:02 Temperature Pulse Rate 78 79 Pulse Rate [Left P ulse Oximeter] Pulse Rate [Pulse Oximeter] Pulse Rate [Right Pulse Oximeter] Respiratory Rate 14 12 Blood Pressure 125/70 132/64 Blood Pressure [Ri ght Arm] Blood Pressure [Ri ght Upper Arm] Pulse Oximetry 97 96 97 Oxygen Delivery Me thod OxyMask Oxygen Flow Rate 7 01/25/25 02:15 01/25/25 02:30 01/25/25 02:45 Temperature Pulse Rate 72 72 75 Pulse Rate [Left P ulse Oximeter] Pulse Rate [Pulse Oximeter] Pulse Rate [Right Pulse Oximeter] Respiratory Rate 14 15 11 L Blood Pressure 123/55 L Blood Pressure [Ri ght Arm] Blood Pressure [Ri ght Upper Arm] Pulse Oximetry 97 97 97 Oxygen Delivery Me thod Oxygen Flow Rate 01/25/25 03:00 01/25/25 03:02 01/25/25 04:20 Temperature Pulse Rate 76 73 Pulse Rate [Left P ulse Oximeter] Pulse Rate [Pulse Oximeter] Pulse Rate [Right Pulse Oximeter] Respiratory Rate 14 13 Blood Pressure 128/65 Blood Pressure [Ri ght Arm] Blood Pressure [Ri ght Upper Arm] Pulse Oximetry 97 97 97 Oxygen Delivery Me thod Oxygen Flow Rate 01/25/25 04:22 01/25/25 04:22 01/25/25 08:22 Temperature 98.0 F Pulse Rate Pulse Rate [Left P ulse Oximeter] 83 Pulse Rate [Pulse Oximeter] Pulse Rate [Right Pulse Oximeter] 93 Respiratory Rate 18 16 Blood Pressure Blood Pressure [Ri ght Arm] 153/72 H Blood Pressure [Ri ght Upper Arm] Pulse Oximetry 97 97 96 Oxygen Delivery Me thod OxyMask OxyMask OxyMask Oxygen Flow Rate 5 5 5 01/25/25 08:22 01/25/25 08:56 01/25/25 10:30 Temperature 97.9 F Pulse Rate 101 H Pulse Rate [Left P ulse Oximeter] Pulse Rate [Pulse Oximeter] Pulse Rate [Right Pulse Oximeter] 73 Respiratory Rate 16 Blood Pressure Blood Pressure [Ri ght Arm] 184/90 H Blood Pressure [Ri ght Upper Arm] Pulse Oximetry 96 93 Oxygen Delivery Me thod OxyMask Nasal Cannula Oxygen Flow Rate 5 2 01/25/25 12:25 Temperature 98.3 F Pulse Rate Pulse Rate [Left P ulse Oximeter] Pulse Rate [Pulse Oximeter] Pulse Rate [Right Pulse Oximeter] 78 Respiratory Rate 18 Blood Pressure Blood Pressure [Ri ght Arm] 118/92 H Blood Pressure [Ri ght Upper Arm] Pulse Oximetry 92 Oxygen Delivery Me thod Room Air Oxygen Flow Rate Documenting provider has reviewed patient's vital signs: yes Labs Labs: Laboratory Results - last 24 hr 01/24/25 01/25/25 01/25/25 23:38 00:05 00:45 WBC 9.08 RBC 4.50 Hgb 13.2 L Hct 39.1 MCV 87 MCH 29 MCHC 34 RDW Coeff of [place] 14.1 Plt Count 175 Neut % (Auto) 83.3 H Lymph % (Auto) 10.9 L [place] % (Auto) 4.4 Eos % (Auto) 0.0 Baso % (Auto) 0.2 Neut # (Auto) 7.60 H Lymph # (Auto) 1.00 [place] # (Auto) 0.40 Eos # (Auto) 0.00 Baso # (Auto) 0.02 Abs Immat Gran (auto) 0.11 Imm/Tot Granulo (auto) 1.2 D-Dimer Quant (PE/DVT) VBG pH 7.349 VBG pCO2 49 VBG pO2 35.4 VBG HCO3 27 Sodium 133 L Potassium 4.0 Chloride 90 L Carbon Dioxide 26 Anion Gap 17 H BUN 28 Creatinine 0.9 Estimated Creat Clear 58.92 Estimated GFR 86 Glucose 378 H* Hemoglobin A1c 8.2 H Lactate 4.3 H* Calcium 8.7 Magnesium Total Bilirubin 1.3 AST 30 ALT 46 Alkaline Phosphatase 69 Total Creatine Kinase 92 Troponin I C-Reactive Protein < 0.5 L NT-Pro-B Natriuret Pep 209 Total Protein 7.3 Albumin 4.4 Procalcitonin 0.07 Urine Color Yellow Urine Appearance Clear Urine pH 5.0 Ur Specific [place] 1.020 Urine Protein Trace A Urine Glucose (UA) 2+ A Urine Ketones Negative Urine Blood Trace-intact A Urine Nitrite Negative Urine Bilirubin Negative Urine Urobilinogen 0.2 Ur Leukocyte Esterase Negative Urine RBC 0-2 Urine WBC 0-2 Ur Squamous Epith Cells Few Urine Bacteria Few A SARS-CoV-2 (PCR) Negative SARS-CoV-2 Influenza Type A (PCR) Negative PCR FLU A Influenza Type B (PCR) Negative PCR FLU B RSV (PCR) Negative PCR RSV Lab Acknowledgement POC Troponin I 0.03 01/25/25 01/25/25 01/25/25 01:09 02:00 08:07 WBC 8.04 RBC 4.24 L Hgb 12.6 L Hct 37.1 MCV 88 MCH 30 MCHC 34 RDW Coeff of [place] 14.2 Plt Count 164 Neut % (Auto) 73.9 H Lymph % (Auto) 16.9 L [place] % (Auto) 7.5 Eos % (Auto) 0.7 Baso % (Auto) 0.6 Neut # (Auto) 5.90 Lymph # (Auto) 1.40 [place] # (Auto) 0.60 Eos # (Auto) 0.06 Baso # (Auto) 0.05 Abs Immat Gran (auto) 0.03 Imm/Tot Granulo (auto) 0.4 D-Dimer Quant (PE/DVT) 0.29 VBG pH 7.369 VBG pCO2 51 H VBG pO2 63.5 H VBG HCO3 29 H Sodium 134 L Potassium 3.5 L Chloride 95 L Carbon Dioxide 28 Anion Gap 11 BUN 24 Creatinine 0.8 Estimated Creat Clear 58.92 Estimated GFR 89 Glucose 165 H Hemoglobin A1c Lactate 2.2 H 1.7 Calcium 8.4 Magnesium 1.4 L Total Bilirubin AST ALT Alkaline Phosphatase Total Creatine Kinase Troponin I 0.04 C-Reactive Protein NT-Pro-B Natriuret Pep Total Protein Albumin Procalcitonin Urine Color Urine Appearance Urine pH Ur Specific [place] Urine Protein Urine Glucose (UA) Urine Ketones Urine Blood Urine Nitrite Urine Bilirubin Urine Urobilinogen Ur Leukocyte Esterase Urine RBC Urine WBC Ur Squamous Epith Cells Urine Bacteria SARS-CoV-2 (PCR) Influenza Type A (PCR) Influenza Type B (PCR) RSV (PCR) Lab Acknowledgement Test Added POC Troponin I
--- NOTE | 2025-01-25 16:41 | RESP.RT ---
Pt weaned off of oxygen today, tolerating RA at this time. BBS clear Pt has known CARLOS, however does not wear PAP. If pt desaturates tonight, try to reposition and/or increasing HOB to 30 degrees before initiating oxygen.
[2025-01-25] MEDS: METFORMIN ER 500 MG 1000 MG PO (17:03)
--- NOTE | 2025-01-25 19:59 | PC.NURSE ---
Pt a/o x4, pleasant and cooperative with cares, Diabetic diet tolerated. pt SBA. No pain reported but pt stated discomfort at R collar bone. Provider notified. No concerns at this time.
[2025-01-25] MEDS: ENOXAPARIN 40 MG/0.4 ML INJ SUBCUT (20:51)
[2025-01-25] MEDS: ACETAMINOPHEN 325 MG TABLET 650 MG PO (20:54)
[2025-01-26] MEDS: AZITHROMYCIN 500 MG in 0.9 % SODIUM CHLORIDE 250 ml 250 ML 255 MG IVPB (01:10)
[2025-01-26] MEDS: cefTRIAXone 1 GM in 0.9 % SODIUM CHLORIDE Mini-bag 100 ML IVPB (01:52)
[2025-01-26 03:00] VITALS: BP 150/82; PULSE 64; RESP 18; TEMP 36.6; O2SAT 93
[2025-01-26 03:31] VITALS: O2SAT 93
[2025-01-26 05:42] VITALS: O2SAT 95
[2025-01-26 05:58] LABS: HCO3 VBG 33 mmol/L (21-28); PCO2 VBG 55 mmHG (40-50); PO2 VBG < 30.1 mmHG (25-47); pH VBG 7.383 (7.32-7.43)
[2025-01-26 06:04] LABS: Hematocrit* 42.8 % (37.0-53.0); Hemoglobin* 14.2 gm/dL (13.5-17.5); Immature Granulocytes Abs Auto 0.09 K/uL (0.00-0.30); Immature Granulocytes Pct Auto 1.2 %; Lymphocytes Absolute Auto 1.88 K/uL (0.90-2.90); Mean Corpuscular HGB Conc 33 gm/dL (32-36); Mean Corpuscular Hemoglobin 29 pg (26-34); Mean Corpuscular Volume 88 fL (80-100); RDW Coefficient of Variation % 14.1 % (11.5-15.5); Red Blood Count* 4.86 m/uL (4.30-5.90); White Blood Count* 7.58 K/uL (4.50-11.00)
[2025-01-26 06:09] LABS: Slide Review Reflex No
[2025-01-26 06:15] LABS: Chloride* 98 mmol/L (96-114)
[2025-01-26 06:16] LABS: Potassium* 3.8 mmol/L (3.6-5.1); Sodium* 136 mmol/L (135-149)
[2025-01-26 06:19] LABS: Anion Gap 5 mEq/L (7-15); Blood Urea Nitrogen* 24 mg/dL (7-30); Calcium* 9.0 mg/dL (8.4-10.6); Carbon Dioxide* 33 mmol/L (20-32); Creatinine* 0.8 mg/dL (0.5-1.5); Est. Creatinine Clearance* 58.92; Estimated Glomerular Filt Rate 89 ml/min; Glucose* 130 mg/dL (60-115)
[2025-01-26 07:27] VITALS: PULSE 70
[2025-01-26 07:35] VITALS: BP 155/83; PULSE 79; RESP 18; TEMP 36.5; O2SAT 96
[2025-01-26 07:36] VITALS: RESP 18; O2SAT 96
[2025-01-26] MEDS: METFORMIN ER 500 MG 1000 MG PO (08:36)
[2025-01-26] MEDS: ATORVASTATIN CALCIUM 40 MG TABLET PO (08:37)
[2025-01-26] MEDS: AMLODIPINE 10 MG TABLET PO (08:37)
[2025-01-26] MEDS: EMPAGLIFLOZIN 10 MG TABLET PO (08:38)
[2025-01-26] MEDS: PIOGLITAZONE HCL 15 MG TABLET 30 MG PO (08:38)
[2025-01-26] MEDS: MAGNESIUM OXIDE 400 MG TABLET PO (08:39)
[2025-01-26] MEDS: SODIUM CHLORIDE 0.9 % (FLUSH) 10 ML SYRINGE 5 ML IVF (08:40)
--- NOTE | 2025-01-26 09:35 | PM.DS1 ---
DS: Providers Provider Date Seen: 01/26/25 Date of admission: 01/25/25 02:10 Primary care physician: Tavo Nix MD Admitting Clinician: Heather Peoples MD Attending Physician on discharge: Kishan Ordoñez MD Date of Discharge: 01/26/25 DS: Diagnosis Discharge Diagnosis (1) Pneumonia: Status: Acute Problem details: Treat for community-acquired pneumonia with ceftriaxone and azithromycin. Clinically improving. (2) Respiratory failure with hypoxia: Status: Acute Problem details: Likely has a component of hypoxic respiratory failure due to sleep apnea as well as acute hypoxia due to pneumonia. Normal proBNP and D-dimer. (3) Weakness: Status: Acute Problem details: Likely due to illness. I do not see evidence of a radicular problem or cord compression to suggest a neurologic cause for leg weakness. Improving. (4) Cognitive impairment: Status: Acute Problem details: 01/25/2025: [place] score of 20/30 (5) Diabetes: Status: Chronic Problem details: Acute hyperglycemia due to illness. Now back on home diabetes medicine (6) Obstructive sleep apnea: Status: Acute Problem details: Probably fairly severe CARLOS. Hypoxic at night in the hospital. Strongly encouraged him to address his difficulties with CPAP. Has appointment with Dr. Crater in 1-2 weeks DS: Summary Hospital Course Hospital Course: Admission HPI: Alberto Rosenthal is seen as an Interactive Telehealth visit. Alberto Rosentahl is a 79 year old male with past medical history of mild hypertension, diabetes mellitus type 2, hyperlipidemia, CARLOS noncompliant with CPAP who presents to the emergency department for evaluation of generalized weakness. Patient's daughter is at bedside and assists with some of the history. Upon waking yesterday morning, noticed that both of his legs felt heavier than normal, associated with weakness and difficulty lifting his legs, with noticeable slapping of his feet on the ground, which is new for him. He reports chronic back pain, with some new worsening, but denies any point tenderness or associated bowel/bladder incontinence or numbness. His daughter noticed that he had poor appetite and refused to eat all day. Today in the ED, she notices he's been having some mild orthopnea which improves with repositioning. Patient further denies any recent fever, chills, change in chronic night sweats, nausea, vomiting, change in urinary or bowel habits, cough , SOB, sick contacts, lower extremity swelling, recent medication changes. Of note, patient was diagnosed with CARLOS at least 1 year ago, started on CPAP but decide he would stop using it due to not being able to tolerate it overnight. He followed up with the prescribing doctor who he states recommended that he try a different therapy, however patient never followed up again to start this new treatment. Otherwise denies any other complaints at this time. ED course: -Vital signs on presentation significant for: 170/79 -Initial laboratory evaluation significant for: Hgb 13.2, AG 17, BG 378, lactic acid 4.3, UA (-) for infection, respiratory viral panel (-), troponin (-) Chest Xray revealed: patchy bibasilar airspace opacification, likely reflecting atelectasis, however no definitive infectious process not excluded. No pleural effusion, pneumothorax, or acute osseous abnormality, or acute osseous abnormality CT head revealed: negative for acute intracranial processes Therapies provided in the emergency department included: ceftriaxone, azithromycin, insulin 10 units Additional history: Patient has diabetes and notes that his blood sugars have been high since he has been here. He does monitor his blood sugar at home but does not take action with abnormal blood sugar readings. He reports he has been having some upper respiratory symptoms, congestion and some cough and dyspnea. He did not volunteer these symptoms but agreed that he had them when I asked. Denied cough and dyspnea at the time of admission. 01/26/2025: Patient reports feeling much better. Received a little bit of oxygen/NC overnight but otherwise breathing without oxygen. No fever. Appetite is back. He is feeling stronger. Status at Discharge Functional status at discharge: uses cane/walker Overall status at discharge: patient is progressing back to baseline Time Spent with Patient Time attestation: Total time spent providing and/or coordinating discharge services: 40 minutes Time spent: Greater than 30 minutes Exam Narrative: Exam Narrative: He is alert and appears in no distress. He is eaten a good breakfast this morning. Respirations with diminished breath sounds but no wheezing rales or rhonchi. Cardiovascular: S1, S2, regular rate and rhythm. Abdomen is soft without tenderness. Extremities with trace edema. Const: Vital Signs, click to edit/add: Vital Signs - 24 hr 01/25/25 10:30 01/25/25 12:25 01/25/25 15:00 Temperature 98.3 F Pulse Rate 84 Pulse Rate [Left P ulse Oximeter] Pulse Rate [Right Pulse Oximeter] 78 Respiratory Rate 18 Blood Pressure [Ri ght Arm] 118/92 H Pulse Oximetry 93 92 Oxygen Delivery Me thod Nasal Cannula Room Air Oxygen Flow Rate 2 01/25/25 15:00 01/25/25 15:00 01/25/25 15:00 Temperature 98.6 F Pulse Rate Pulse Rate [Left P ulse Oximeter] Pulse Rate [Right Pulse Oximeter] 77 77 Respiratory Rate 18 18 18 Blood Pressure [Ri ght Arm] 132/61 Pulse Oximetry 92 92 Oxygen Delivery Me thod Room Air Room Air Oxygen Flow Rate 01/25/25 19:00 01/25/25 22:19 01/25/25 22:19 Temperature 98.0 F Pulse Rate Pulse Rate [Left P ulse Oximeter] Pulse Rate [Right Pulse Oximeter] 89 Respiratory Rate 18 Blood Pressure [Ri ght Arm] 157/83 H Pulse Oximetry 92 88 93 Oxygen Delivery Me thod Room Air Room Air Nasal Cannula Oxygen Flow Rate 2 01/25/25 23:00 01/25/25 23:00 01/25/25 23:00 Temperature 98.1 F Pulse Rate Pulse Rate [Left P ulse Oximeter] 83 8 L Pulse Rate [Right Pulse Oximeter] 89 71 Respiratory Rate 18 18 18 Blood Pressure [Ri ght Arm] 152/83 H Pulse Oximetry 93 93 Oxygen Delivery Me thod Nasal Cannula Nasal Cannula Oxygen Flow Rate 2 2 01/25/25 23:00 01/26/25 03:00 01/26/25 03:31 Temperature 97.9 F Pulse Rate 60 Pulse Rate [Left P ulse Oximeter] Pulse Rate [Right Pulse Oximeter] 64 Respiratory Rate 18 Blood Pressure [Ri ght Arm] 150/82 H Pulse Oximetry 93 93 Oxygen Delivery Me thod Nasal Cannula Oxygen Flow Rate 01/26/25 05:42 01/26/25 07:27 01/26/25 07:35 Temperature 97.7 F Pulse Rate 70 Pulse Rate [Left P ulse Oximeter] Pulse Rate [Right Pulse Oximeter] 79 Respiratory Rate 18 Blood Pressure [Ri ght Arm] 155/83 H Pulse Oximetry 95 96 Oxygen Delivery Me thod Room Air Room Air Oxygen Flow Rate 01/26/25 07:36 Temperature Pulse Rate Pulse Rate [Left P ulse Oximeter] Pulse Rate [Right Pulse Oximeter] Respiratory Rate 18 Blood Pressure [Ri ght Arm] Pulse Oximetry 96 Oxygen Delivery Me thod Room Air Oxygen Flow Rate Documenting provider has reviewed patient's vital signs: yes DS: Data Data Completed and Pending Completed studies during hospitalization: Procedures Compression of Right Lower Leg using Pressure Dressing (12/26/22) Excision of Right Lower Leg Subcutaneous Tissue and Fascia, Open Approach (12/26/22) Insertion of Infusion Device into Superior Vena Cava, Percutaneous Approach (12/26/22) Ultrasonography of Superior Vena Cava, Guidance (12/26/22) Labs on day of discharge: Labs from last 24 hours 01/26/25 05:47 WBC 7.58 RBC 4.86 Hgb 14.2 Hct 42.8 MCV 88 MCH 29 MCHC 33 RDW Coeff of Mahendra 14.1 Plt Count 159 Neut % (Auto) 63.8 Lymph % (Auto) 24.8 [place] % (Auto) 7.7 Eos % (Auto) 1.7 Baso % (Auto) 0.8 Neut # (Auto) 4.84 Lymph # (Auto) 1.88 [place] # (Auto) 0.60 Eos # (Auto) 0.13 Baso # (Auto) 0.06 Abs Immat Gran (auto) 0.09 Imm/Tot Granulo (auto) 1.2 VBG pH 7.383 VBG pCO2 55 H VBG pO2 < 30.1 VBG HCO3 33 H Sodium 136 Potassium 3.8 Chloride 98 Carbon Dioxide 33 H Anion Gap 5 L BUN 24 Creatinine 0.8 Estimated Creat Clear 58.92 Estimated GFR 89 Glucose 130 H Calcium 9.0 Preliminary micro results at discharge 01/24/25 23:38 Urine Culture - Preliminary Urine,Clean Catch No growth. Imaging Chest x-ray: Radiologist's impression: Indication: Weakness and dyspnea. Technique: Two views of the chest. Comparison: Chest x-ray 12/27/2022. Findings/Impression: The heart is not abnormally enlarged. Mediastinal contours are grossly within normal limits. Patchy bibasilar airspace opacification, likely reflecting atelectasis, however mild developing infectious process is not excluded in the appropriate clinical context. No definite pleural effusion. No pneumothorax. No acute osseous abnormality. CT scan - head: Radiologist's impression: INDICATION: Transient alteration of awareness TECHNIQUE: CT Head without i.v. contrast. Coronal and sagittal reformats were obtained. COMPARISON: None FINDINGS: CSF space: Unremarkable for age. Brain: No evidence of mass, acute infarction or hemorrhage is seen. No mass-effect or midline shift is seen. Mild diffuse cortical atrophy is noted. The brain parenchyma is otherwise normal in appearance with preservation of the mooney-white matter junction. Calvarium: The visualized paranasal sinuses are well aerated. The mastoid air cells are clear. The visualized orbits are grossly unremarkable. The calvarium is unremarkable in appearance with no fractures identified. A small right parietal scalp hematoma is noted. IMPRESSION: 1. No evidence of acute infarction, intracranial hemorrhage, or mass-effect seen. Discharge Plan Discharge Disposition: Home w/ Parent or Adult Date of Admission: 01/25/25 02:10 Attending Provider on Discharge: Gregorio Ordoñez Primary Care Provider: Tavo Nix Condition: Improved Anticipated Discharge Date/Time: 01/26/25 09:04 Discharge Medications: New azithromycin 250 mg tablet 250 mg PO DAILY Qty: 3 0RF Continued (DME) pen needle, diabetic [BD Ida 2nd Gen Pen Needle] 32 gauge x 5/32 needle See Rx Instructions .ROUTE .MEDSUPPLY Qty: 1200 Patient Comments: [NO ORIGINAL SIG] Rx Instructions: As directed pioglitazone 30 mg tablet 30 mg PO DAILY (DME) Accu-Chek SmartView Test Strip Strip See Rx Instructions .ROUTE BID Qty: 10 Rx Instructions: As directed atorvastatin 40 mg tablet 40 mg PO DAILY amlodipine 10 mg tablet 10 mg PO DAILY metformin 500 mg tablet extended release 24 hr 1,000 mg PO BIDWM cholecalciferol (vitamin D3) 25 mcg (1,000 unit) tablet 25 mcg PO DAILY insulin glargine [Lantus Solostar U-100 Insulin] 100 unit/mL (3 mL) insulin pen 65 unit subcut HS Qty: 15 0RF lisinopril-hydrochlorothiazide 20-12.5 mg tablet 2 tab PO DAILY Jardiance 10 mg tablet 10 mg PO DAILY Discharge Orders: Discharge Order (Routine); Ordered 01/26/25 Ordered By: Gregorio Ordoñez Patient Education: Azithromycin (By mouth), Sleep Apnea (DC), Community Acquired Pneumonia (DC), Hypoxia (GEN) Activity Level: Activity as Tolerated Discharge Diet: Heart Healthy (2 gm sodium, low fat) Follow Up Appointments: Tavo Nix MD [Primary Care Provider, Family Practice] - 02/02/25 2:05 pm Referral Note: Bob Echevarria MD [Referring, Sleep Medicine] - 02/08/25 10:30 am Forms: Repliseth Info Instructions
--- NOTE | 2025-01-26 10:08 | PC.NURSE ---
Pt discharged @ 1006 via wheelchair, accompanied by daughter. Going back to home. IV removed. Discharge forms signed. Pt reported understanding of discharge instructions. Final room check complete.
== END 2025-01-26 10:06 | disposition home or self-care (01) | DRG 193 ==
LOC: ED 01-25 01:41 → MEDSURG 01-25 05:28
PROVIDERS: Family Medicine; Admitting Provider Internal Medicine; Emergency Provider Family Medicine; PCP Family Medicine; Visit Provider Family Medicine
DX: J18.9 Pneumonia, unspecified organism (principal); J96.01 Acute respiratory failure with hypoxia; G47.33 Obstructive sleep apnea (adult) (pediatric); E11.65 Type 2 diabetes mellitus with hyperglycemia; Z79.84 Long term (current) use of oral hypoglycemic drugs; Z79.4 Long term (current) use of insulin; E86.0 Dehydration; G31.84 Mild cognitive impairment of uncertain or unknown etiology; I10 Essential (primary) hypertension; Z91.198 Patient's noncompliance with other medical treatment and regimen for other reason; Z99.89 Dependence on other enabling machines and devices; E66.811 Obesity, class 1; Z68.34 Body mass index [BMI] 34.0-34.9, adult; E78.2 Mixed hyperlipidemia
CPT/HCPCS: 36415; 70450; 71046; 80048; 80053; 81001; 82550; 82803; 82962; 83036; 83605; 83735; 83880; 84145; 84484; 85025; 85379; 86140; 87086; 87631; 93005; 94761; 97116; 97162; 97165; 97530; 97535; 99284; 99285; A9270; J0456; J0696; J1650; J1815; J7030; J7050

== ENCOUNTER 2025-02-22 20:37 | Outpatient (CLI) | payer MEDICARE, OTHER, SELFPAY | END 2025-02-22 20:38 | disposition home or self-care (01) | LOC: SLEEP 20:37 | PROVIDERS: PCP Family Medicine; Visit Provider Internal Medicine | DX: G47.33 Obstructive sleep apnea (adult) (pediatric) (principal); G47.61 Periodic limb movement disorder | CPT/HCPCS: 95811 ==